=== PATIENT | male | born 1970 | race Caucasian/White ===

== ENCOUNTER 2020-06-20 08:46 | Inpatient (IN) | payer OTHER, SELFPAY ==
[2020-06-20] VITALS (12 sets, daily range): BP systolic 111–160; BP diastolic 75–108; PULSE 109–121; RESP 17–24; TEMP 36.3–36.7; O2SAT 63–97; BMI 40.6; BMI 41.1; BMI 41.2
--- NOTE | 2020-06-20 09:02 | RAD_ITS ---
STUDY: X-RAY CHEST REASON FOR EXAM: Male, 49 years old. SOB? EDEMA TO LOWER EXTREMITIES TECHNIQUE: Single AP portable view of the chest. COMPARISON: None. FINDINGS: The lungs are clear and expanded. There is no demonstrated pleural abnormality. There is moderate cardiac enlargement. Normal mediastinum and antelmo. There is prominence of the pulmonary hilar arteries and peripheral pulmonary arteries, consistent with congestive heart failure (CHF). Normal visualized aortic arch and descending thoracic aorta. Normal visualized thoracic spine. Normal visualized ribs, clavicles, and shoulders. There is no demonstrated abnormality of the visualized soft tissue structures of the upper abdomen. RAD/Chest 1 View (Portable) IMPRESSION: Mild congestive heart failure. Electronically Signed: Walter Duran MD at 10:57 EDT Tel , Service support ,
--- NOTE | 2020-06-20 09:03 | EKG12_ITS ---
Test Reason : Blood Pressure : / mmHG Vent. Rate : 119 BPM Atrial Rate : 119 BPM P-R Int : 166 ms QRS Dur : 090 ms QT Int : 312 ms P-R-T Axes : 068 088 049 degrees QTc Int : 438 ms Sinus tachycardia with occasional Premature ventricular complexes Low voltage QRS Borderline ECG Confirmed by RYAN HUERTA, KHURRAM ([id number]), restaurant expeditor CLAUDIA WARNER ([id number]) on 06/21/2020 10:05:01 AM Referred By: MEMO Confirmed By:KHURRAM DAVIS MD
[2020-06-20] MEDS: Ondansetron 4 MG/2 ML Vial IV (09:24)
[2020-06-20] MEDS: Furosemide 20 MG/2 ML VIAL IV (09:24)
[2020-06-20] MEDS: Morphine 4 MG/ML Syringe IV (09:24)
[2020-06-20 09:28] LABS: Mucous, Urine 0 SEEN /hpf (<or=2+); Red Blood Cells-Urine 0 SEEN /hpf (0-5)
[2020-06-20 09:34] LABS: Color, Urine Yellow (Yellow); Glucose, Dipstick Normal (Normal); Ketone-Dipstick Negative (Negative); Leukocyte Esterase-Dipstick 25 /ul (Negative); Nitrite-Dipstick Negative (Negative); Occult Blood-Urine Negative /ul (Negative); Protein-Dipstick 100 mg/dl (Negative); Specific Gravity, Urine 1.025 (1.002-1.030); Urine Clarity Sl. Cloudy (Clear); Urine Urobilinogen 1 mg/dl (Normal)
[2020-06-20 09:34] LABS: Absolute Lymphocyte Count 1.63 X10^3/uL (0.83-4.51); Basophil# 0.04 X10^3/uL; Basophil% 0.4 % (0-1); Eosinophil# 0.14 X10^3/uL; Eosinophils% 1.4 % (0-5); Hematocrit 45.6 % (40-54); Hemoglobin 13.4 g/dL (13.0-16.5); Lymphocyte # 1.63 X10^3/ul (4.0); Lymphocyte % 16.8 % (19-41); Mean Corp Hgb Conc 29.4 g/dL (32-36); Mean Corpuscular Hgb 29.1 pg (27.0-32.0); Mean Corpuscular Volume 98.9 fL (80-94); Mean Platelet Vol. 10.1 fl (6.2-12.0); Monocyte# 0.84 X10^3/uL; Monocyte% 8.7 % (0-10); NRBC Flagged by Analyzer 0 % (0-5); Neutrophil # 7.03 X10^3/uL (2.7-7.7); Neutrophil % 72.4 % (47-70); Platelet Count 262 K/mm3 (150-450); RBC Distribution Width CV 15.3 % (11.6-14.6); Red Blood Count 4.61 M/mm3 (4.6-6.2); White Blood Count 9.7 K/mm3 (4.4-11.0)
[2020-06-20 09:37] LABS: Urine Bilirubin Dipstick 1 mg/dL (Negative)
--- NOTE | 2020-06-20 09:37 | CT_ITS ---
STUDY: CT ABDOMEN AND PELVIS WITHOUT CONTRAST REASON FOR EXAM: Male, 49 years old. ABDOMINAL PAIN WITH SWELLING RADIATION DOSAGE (If Supplied By Facility): CTDIvol = ( 22.40 ) mGy, DLP = ( 1628.00 ) mGycm TECHNIQUE: Transaxial images were obtained from the dome of the diaphragm to the symphysis pubis without oral contrast, and without intravenous contrast. Sagittal and coronal images were reconstructed. Individualized dose optimization techniques were used for this CT. COMPARISON: None. FINDINGS: The visualized lung bases are unremarkable. The visualized portions of the heart are within normal limits. Small amount of ascites. Edema of the subcutaneous fat of the abdominal wall consistent with anasarca. Normal liver. Normal gallbladder and extrahepatic biliary system. Normal spleen. Normal pancreas. Normal bilateral adrenal glands. Normal right kidney. Normal left kidney. Normal visualized stomach. Normal small intestine. Normal colon. The appendix is visualized and appears normal. Normal abdominal aorta. Normal inferior vena cava. Normal retroperitoneum. Normal urinary bladder. Normal abdominal wall. Focal degenerative disc disease at L5/S1 to CT/Abdomen/Pelvis without Cont IMPRESSION: Volume overload with anasarca and a small amount of ascites. Electronically Signed: Walter Duran MD at 11:05 EDT Tel , Service support ,
[2020-06-20 09:40] LABS: Bacteria RARE /hpf (None Seen); Calcium Oxalate Crystals Ur 2+ /hpf (<or=2+); Squamous Epithelial Cells - UA 0-5 SEEN /hpf (0-5); White Blood Cells 0-5 SEEN /hpf (0-5)
[2020-06-20 09:51] LABS: ALB/GLOB Ratio 0.8 RATIO (0.9-2.4); AST(SGOT) 14 U/L (15-37); Alanine Aminotransfer ALT/SGPT 19 U/L (16-61); Albumin, Serum 3.3 g/dL (3.2-5.0); Alkaline Phosphatase 77 U/L (45-117); Anion Gap 5 (5-15); BUN 18 mg/dL (7-18); BUN/Creat Ratio 18.2 RATIO (10-20); Calcium,Total 9.3 mg/dL (8.5-10.1); Chloride 98 mmol/L (98-107); Creatinine, Serum 0.99 mg/dL (0.70-1.30); EST Glomerular Filtration Rate 85 mL/min (>60); Est Glom Filt Rate - Afr Amer 103 mL/min (>60); Estimated Creatinine Clearance 95.08 ml/min; Globulin 4.3 g/dL (2.2-4.2); Glucose 116 mg/dL (74-106); Lipase 243 U/L (73-393); Protein, Total 7.6 g/dL (6.4-8.2); Sodium Level 135 mmol/L (136-145)
--- NOTE | 2020-06-20 10:57 | ED.VISSUMM ---
- ER Visit Summary Date of Service: 06/20/20 Chief Complaint: Bilateral leg swelling and abdominal pain History of Present Illness: The patient is a [address] Jennings. He reports he began having swelling of his legs approximately 2 weeks ago. It is increased over the past 2 days. Is also developed diffuse abdominal pain over the past 2 days. He describes it as sharp pain is 2 out of 10 currently and 10 out of 10 at worst. It is worsened by movement or walking. His last bowel was today. He reports he is not passing flatus. He denies any nausea, vomiting, or diarrhea. Patient denies any fever, chills, chest pain, shortness of breath, or other complaints. Physical Examination: Vitals: Stable. Afebrile. General: Well-nourished and well-developed. Head: Normocephalic atraumatic. Neck: Supple, no lymphadenopathy. No JVD. Nontender. Cardiovascular: Tachycardic regular rhythm. No murmurs. Respiratory: No respiratory distress. Clear to auscultation bilaterally. Abdominal: Soft, moderate diffuse tenderness palpation, nondistended, normal bowel sounds. No guarding, rebound, or peritoneal signs. Back: Nontender. Extremities: Nontender, 3+ pitting edema lower extremities bilaterally that extends up onto the lower abdomen. Skin: Normal color, no rash. Neurologic: Alert and oriented ?3. Cranial nerves II through XII are intact. Normal strength and sensation. Psych: Normal affect. Test Results: EKG is sinus tachycardia 119 with PVCs and nonspecific ST changes. Troponin is negative. UA shows leukocytes, 2+ calcium oxalate crystals, and protein. LFTs show an albumin of 4.3 and AST of 14. Lipase is normal. Chem-7 shows a sodium 135 and chloride 116. CBC shows 7 neutrophils 72 lymphocytes 17. Chest x-ray shows cardiomegaly and mild CHF. Clinical Impression(s) from Imaging Studies Chest X-Ray 06/20/20 09:02 IMPRESSION: Mild congestive heart failure. Electronically Signed: Walter Duran MD at 10:57 EDT Tel , Service support , Abdomen/Pelvis CT 06/20/20 09:37 IMPRESSION: Volume overload with anasarca and a small amount of ascites. Electronically Signed: Walter Duran MD at 11:05 EDT Tel , Service support , Emergency Department Course and Treatment: Patient was given a dose of morphine, Zofran, and Lasix IV. He is resting more comfortably. Treatment Plan: Patient will be discussed with the Hospitalist and admitted for further evaluation and treatment. Disposition: Admitted in improved condition. Impression: 1. Anasarca. 2. Ascites. This note was generated with [employer] dictation software. It may contain incorrect words, spelling, and punctuation that were not noted in review of the chart prior to signing ED Disposition - Plan for ED Patient: Referrals: Giuliano Jennings MD [Primary Care Provider] -
--- NOTE | 2020-06-20 11:26 | NURSING ---
DR AZRA WATKINS
--- NOTE | 2020-06-20 11:28 | PCM.HP.STD ---
Problem List (1) Lower extremity edema Status: Acute (2) Diabetes mellitus type 2 in obese Status: Chronic (3) Hypertension Status: Chronic (4) Sleep apnea Status: Chronic History of Present Illness Date of Admission: 06/20/20 Chief Complaint: Bilateral lower extremity edema for 2 to 3 weeks The patient is a 49 year old M with history of type 2 diabetes mellitus and hypertension came to ED with bilateral lower extremity edema and increasing abdominal girth for 2 to 3 weeks. Patient looks short of breath even though he denies shortness of breath on exertion, at rest. He denies exertional dyspnea, orthopnea or PND. No chest pain or pressure. Denies any history of coronary artery disease/[place] although his father had [place] and CABG. In ED, his pulse ox dropped to 63% on room air and currently 95% on 4 L of oxygen. Triage vitals, sinus tach rate of 121, BP 122/76. Respiratory rate 20 to 24/min. Chest x-ray individually reviewed and shows mild interstitial edema and moderate cardiac enlargement. EKG sinus tachycardia with PVCs at 119 bpm, low voltage QRS. No previous EKG, echo or admission in our hospital Patient had Lasix 20 mg IV and morphine and Zofran in ED. Past Medical History Past Medical History (Chronic Problems): Chronic Problems Diabetes mellitus type 2 in obese (Chronic) Hypertension (Chronic) Sleep apnea (Chronic) Allergies No Known Allergies Allergy (Verified 06/20/20 08:47) Home Medications: Ambulatory Orders Medication Instructions Recorded Amlodipine [Norvasc] 5 mg PO DAILY 06/20/20 Atorvastatin Calcium 20 mg PO DAILY 06/20/20 Lisinopril/Hydrochlorothiazide 1 ea PO DAILY 06/20/20 [Lisinopril-Hctz 20-12.5 mg Tab] metFORMIN HCl [Glucophage] 1,000 mg PO BIDCM 06/20/20 Smoking Status: Current every day smoker - About a pack per day since teenage Alcohol: None Drugs: None - *Family History Paternal History Items: Heart Disease - [place]/CABG Review of Systems Constitutional: Denies: Chills, Fever, Weight Change HEENT: Denies: Head Aches, Sinus Congestion, Sinus Drainage Cardiovascular: Denies: Chest Pain, Palpitations Respiratory: Reports: Shortness of Breath. Denies: Cough, Shortness of breath at rest, Sputum production Gastrointestinal: Denies: Abdominal Pain, Nausea, Vomiting Genitourinary: Denies: Dysuria, Frequency Musculoskeletal: Denies: Joint Pain, Joint Tenderness Skin: Denies: Rash, Wounds Neurological: Reports: Balance problems. Denies: Focal weakness, Numbness, Tingling Psychiatric: Denies: Anxiety, Depression, Homicidal Ideations, Suicidal Ideations Hematologic/ Lymphatic: Denies: Easy Bruising, Easy Bleeding VTE Information - Inpt Only VTE Present on Admission: No VTE Mechan Device Prophylaxis: None VTE Pharm Prophylaxis ordered?: Yes Patient Problems: Active and Suspected Problems Lower extremity edema (Acute) - Physical Exam Vitals/I&O's: Vital Signs Temp Pulse Resp BP Pulse Ox 97.3 F L 117 H 20 H 122/76 H 94 06/20/20 08:47 06/20/20 10:47 06/20/20 10:47 06/20/20 10:47 06/20/20 11:05 Oxygen Flow Rate (L/min) 6 Oxygen Delivery Method Nasal Cannula Weight: 291 lb Body Mass Index (BMI) 40.6 General: Alert, Oriented x3, Cooperative HEENT: Atraumatic, PERRLA, EOMI, Normocephalic Neck: Supple, No JVD, Negative Carotid Bruits Lungs: No wheeze, No rales, Diminished - Air entry diminished in all lung stone., Rhonchi - Mild expiratory rhonchi present Cardiovascular: Regular Rhythm, Normal S1, Normal S2, No murmurs, Tachycardic Abdomen: Bowel Sounds Present, Soft, Non Tender, Distended, Obese, - - Mild ascites Extremities: Capillary Refill Less than 3 Seconds, Edema - Bilateral lower extremity edema below knee. Skin: No rashes, No breakdown Musculoskeletal: No Tenderness to Palpation of Joints or Extremities Neurological: Cranial nerves II-XII grossly intact, Deep Tendon Reflexes 2+/4 and Symmetrical, Neuro grossly intact Psych/Mental Status: Normal Affect, Appropriate Laboratory Results 06/20/20 09:00: WBC 9.7, RBC 4.61, Hgb 13.4, Hct 45.6, MCV 98.9 H, MCH 29.1, MCHC 29.4 L, RDW Std Deviation 55.0 H, RDW Coeff of Adam 15.3 H, Plt Count 262, MPV 10.1, Immature Gran % (Auto) 0.300, Neut % (Auto) 72.4 H, Lymph % (Auto) 16.8 L, [place] % (Auto) 8.7, Eos % (Auto) 1.4, Baso % (Auto) 0.4, Absolute Neuts (auto) 7.0, Absolute Lymphs (auto) 1.63, Nucleated RBC % 0 06/20/20 09:00: Sodium 135 L, Potassium 4.0, Chloride 98, Carbon Dioxide 32.0, Anion Gap 5, BUN 18, Creatinine 0.99, Estim Creat Clear Calc 95.08, Est GFR (MDRD) Af Amer 103, Est GFR (MDRD) Non-Af 85, BUN/Creatinine Ratio 18.2, Glucose 116 H, Calcium 9.3, Total Bilirubin 0.50, AST 14 L, ALT 19, Alkaline Phosphatase 77, Troponin I < 0.015, Total Protein 7.6, Albumin 3.3, Globulin 4.3 H, Albumin/Globulin Ratio 0.8 L, Lipase 243 06/20/20 09:20: Urine Color Yellow, Urine Clarity Sl. Cloudy, Urine pH 5.0, Ur Specific [place] 1.025, Urine Protein 100 H, Urine Glucose (UA) Normal, Urine Ketones Negative, Urine Occult Blood Negative, Urine Nitrite Negative, Urine Bilirubin 1 H, Urine Urobilinogen 1 H, Ur Leukocyte Esterase 25 H, Urine RBC 0 SEEN, Urine WBC 0-5 SEEN, Ur Squamous Epith Cells 0-5 SEEN, Calcium Oxalate Crystal 2+, Urine Bacteria RARE, Urine Mucus 0 SEEN Assessment/Plan All Active Problems Lower extremity edema (Acute) The patient is a 49 year old M with history of type 2 diabetes mellitus and hypertension came to ED with bilateral lower extremity edema and increasing abdominal girth for 2 to 3 weeks, consistent with new onset CHF Chest x-ray individually reviewed and shows mild interstitial edema and moderate cardiac enlargement. EKG sinus tachycardia with PVCs at 119 bpm, low voltage QRS. No previous EKG, echo or admission in our hospital 1. Most probably, new onset CHF, exact etiology, type unclear: Clinically patient has bilateral lower extremity edema, mild ascites, tachypnea and hypoxia in ED consistent with CHF. BNP and 2D echo ordered. First troponin negative. Patient is being admitted in PCU. Cycle troponins. Started on Lasix 40 mg IV twice daily. Low-dose metoprolol. Patient already on HCTZ, lisinopril and Norvasc at home. Will hold Norvasc. Heart failure core measures at this time energy, fluid restriction, intake and output and 2 g sodium diet. 2. Hypertension: Patient blood pressure is controlled. Continue lisinopril but hold HCTZ and Norvasc. Monitor BP 3. Diabetes mellitus type 2: Glucose 116. A1c tomorrow a.m. Hold metformin. Accu-Chek essentials and cover with Humalog sliding scale. 4. Obstructive sleep apnea: Patient not using CPAP at home because of the mask/claustrophobia. CPAP ordered. Patient was encouraged to follow-up in pulmonary clinic for the sleep study titration and nasal CPAP. VT prophylaxis, moderate risk: Lovenox 40 mg subcu daily. Inpatient E&M: 32562 Init Hosp L3
--- NOTE | 2020-06-20 12:11 | ECHOCS_ITS ---
Version 2 Reason For Study: Heart Failure Procedure This was a 2D Doppler, Color Flow transthoracic echocardiogram. The study was technically difficult. Contrast injection was performed. Exam performed portable in patient room. Left Ventricle Mildly dilated left ventricle. The estimated ejection fraction is 15 %. Stage 1 diastolic dysfunction. There is severe global hypokinesis of the left ventricle. Right Ventricle Mildly dilated right ventricle. Mild global right ventricular systolic dysfunction. Atria The left atrium is mildly enlarged. Normal right atrium. No doppler evidence for ASD. Mitral Valve There is no mitral valve stenosis. Trivial mitral valve insufficiency. Tricuspid Valve There is no tricuspid stenosis. Trivial tricuspid valve insufficiency. Pulmonary artery systolic pressure is 35 mmHg. Aortic Valve Trisinus/trileaflet aortic valve. There is no aortic stenosis. No aortic valve insufficiency. Pulmonic Valve There is no pulmonic valvular stenosis. Trivial pulmonic valve insufficiency. Great Vessels Normal aortic root. Pericardium/Pleural No pericardial effusion. Medication Diluted definity 2ml given slow IV push to enhance endocardial definition. MMode/2D Measurements & Calculations LVIDd: 5.4 cm IVSd: 1.5 cm LA dimension: 4.8 cm LVIDs: 5.0 cm LVPWd: 1.1 cm FS: 7.0 % LAV(MOD-bp): 81.2 ml LVAd ap4: 44.8 cm2 SV(MOD-sp4): 30.2 ml LAV(MOD-bp) Indexed: 32.6 ml/m2 EDV(MOD-sp4): 186.9 ml LAV(MOD-sp2): 79.5 ml EDV(sp4-el): 196.4 ml LAV(MOD-sp4): 77.9 ml LVAs ap4: 40.2 cm2 ESV(MOD-sp4): 156.7 ml ESV(sp4-el): 164.0 ml EF(MOD-sp4): 16.1 % EF(sp4-el): 16.5 % SV(sp4-el): 32.4 ml LA A4 area: 23.9 cm2 RA A4 area: 21.3 cm2 Doppler Measurements & Calculations MV E max emanuel: 100.0 cm/sec Ao V2 max: 85.4 cm/sec LV V1 max: 79.6 cm/sec Ao max P.9 mmHg LV V1 max P.6 mmHg PA V2 max: 99.2 cm/sec TR max emanuel: 241.6 cm/sec TR max P.6 mmHg Interpretation Summary The estimated ejection fraction is 15 %. Stage 1 diastolic dysfunction. Trivial mitral valve insufficiency. Mildly dilated right ventricle. Mild global right ventricular systolic dysfunction. The study was technically difficult. Contrast injection was performed. Ordering Physician: Ramírez Tavera Referring Physician: Giuliano Jennings Performed By: Stanislav Dover RCS
[2020-06-20 12:48] LABS: BNP,B-Type NATRIURETIC PEPTIDE 776.9 pg/mL (0-100)
[2020-06-20 12:49] LABS: Magnesium 1.8 mg/dL (1.6-2.6)
[2020-06-20 12:52] LABS: AST(SGOT) 12 U/L (15-37); Alanine Aminotransfer ALT/SGPT 17 U/L (16-61); Albumin, Serum 3.3 g/dL (3.2-5.0); Alkaline Phosphatase 79 U/L (45-117); Bilirubin, Direct 0.27 mg/dL (0.00-0.30); Globulin 4.3 g/dL (2.2-4.2); Protein, Total 7.6 g/dL (6.4-8.2)
[2020-06-20] MEDS: Enoxaparin 40 MG/0.4 ML Syringe SC (14:20)
[2020-06-20] MEDS: oxyCODONE 5 MG Tablet PO (16:02)
[2020-06-20 16:30] LABS: Bedside Glucose 132 mg/dL (70-110)
[2020-06-20] MEDS: Furosemide 40 MG/4 ML Vial IV (17:45)
[2020-06-20] MEDS: 0.9% Saline Lock 10 ML Syringe IV ×2 (17:45→19:42)
[2020-06-20] MEDS: Atorvastatin Calcium 40 MG Tablet PO (21:27)
[2020-06-20] MEDS: Metoprolol Tartrate 25 MG Tablet 12.5 MG PO (21:27)
[2020-06-20 22:01] LABS: Bedside Glucose 118 mg/dL (70-110)
[2020-06-20] MEDS: Acetaminophen 325 MG Tablet 650 MG PO (22:45)
[2020-06-21] VITALS (16 sets, daily range): BP systolic 81–117; BP diastolic 59–78; PULSE 85–103; RESP 16–18; TEMP 36.3–36.8; O2SAT 92–96
[2020-06-21] MEDS: oxyCODONE 5 MG Tablet PO (02:23)
[2020-06-21 06:55] LABS: Bedside Glucose 123 mg/dL (70-110)
[2020-06-21 07:23] LABS: Anion Gap 3 (5-15); BUN 24 mg/dL (7-18); BUN/Creat Ratio 20.9 RATIO (10-20); Chloride 98 mmol/L (98-107); Creatinine, Serum 1.15 mg/dL (0.70-1.30); EST Glomerular Filtration Rate 71 mL/min (>60); Est Glom Filt Rate - Afr Amer 86 mL/min (>60); Estimated Creatinine Clearance 81.85 ml/min; Glucose 118 mg/dL (74-106); Potassium 4.7 mmol/L (3.5-5.1); Sodium Level 135 mmol/L (136-145); Thyroid Stim Hormone (TSH) 0.96 uIU/mL (0.358-3.74)
[2020-06-21] MEDS: Acetaminophen 325 MG Tablet 650 MG PO (08:28)
[2020-06-21 09:14] LABS: Hemoglobin A1c 6.1 % (3.8-5.6)
[2020-06-21] MEDS: Lisinopril 20 MG Tablet PO (09:30)
[2020-06-21] MEDS: Metoprolol Tartrate 25 MG Tablet 12.5 MG PO (09:30)
[2020-06-21] MEDS: Enoxaparin 40 MG/0.4 ML Syringe SC (09:31)
[2020-06-21] MEDS: Furosemide 40 MG/4 ML Vial IV (09:32)
[2020-06-21 11:20] LABS: Phosphorus 6.1 mg/dL (2.5-4.9)
[2020-06-21 11:25] LABS: Bedside Glucose 157 mg/dL (70-110)
[2020-06-21] MEDS: Insulin Lispro 100 UNIT/ML INSULN.PEN SC (11:32)
--- NOTE | 2020-06-21 12:02 | CASEMGMT ---
CHETNA VIRGEN assessment: Face to Face with patient for initial transition planning/care coordination assessment. CHETNA VIRGEN introduced self and role at [facility], pt voices understanding and consents to assessment at this time. pt is sitting up in bed in no distress at this time. Pt is A/Ox4 at this time and answers all questions appropriately. Pt is currently on 2liters nc at this time. Care providers, pharmacy, and demographics verified/updated at this time. Presentation: Pt presents w/ BLE and abd edema Admitting dx: Bilat LE edema, new onset CHF PCP: Michaela Specialists: Pt states no current specialists at this time. Preferred [facility]acy: [facility] Insurance: MMO/[employer] Prescription Benefit: MMO Living Will/HPOA: Pt states no current LW/HPOA but would like to complete AD at this time. Kody sheridan, voices understanding. LNOK: Rolanda Martínez, ; Bev Enrique, daughter Living Arrangements: Pt states lives with in mobile home and states no concerns at home at this time. Pt states is independent with ADL's. Transportation: Pt states drives self and states no transportation concerns at this time. DME/HHC: Pt states has a cpap but has not been using and states no need for any further DME at this time. Pt states no hx of HHC or SNF in the past. Pt states no concerns with going home at time of discharge. 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 Pt states smokes a pack of cigarettes daily and does not drink ETOH. Pt states no further concerns/needs at this time. CM to follow for any further discharge planning/needs. Advised pt to ask for CM if any further questions/concerns/needs arise, voices understanding. Pt Goal: Home Plan[place] CHETNA VIRGEN
[2020-06-21 14:21] LABS: Bedside Glucose 135 mg/dL (70-110)
[2020-06-21] MEDS: proCHLORPERazine 10 MG/2 ML Vial 5 MG IV (14:45)
[2020-06-21] MEDS: 0.9% Saline Lock 10 ML Syringe IV (14:47)
--- NOTE | 2020-06-21 15:44 | PCM.PN.HOSP ---
Patient Problems: Active and Suspected Problems Lower extremity edema (Acute) Reason for Visit: Follow-up for heart failure Objective: Patient shortness of breath and leg swelling is better. Heart rate is controlled in the 80s. Sinus rhythm. Blood pressure 117/77, 92/63, map 72. On 2 L of oxygen. Patient was 86% on room air at 8 PM today Physical exam General: Alert, Oriented x3, Cooperative HEENT: Atraumatic, PERRLA, EOMI, Normocephalic Oral: No Gingival or Mucosal Lesions/ Ulcerations Neck: Supple, No JVD, Negative Carotid Bruits Lungs: Air entry diminished in bilateral lung bases. Bibasilar Rales and expiratory rhonchi present. Cardiovascular: Regular rate, Regular Rhythm, Normal S1, Normal S2, No murmurs Abdomen: Bowel Sounds Present, Soft, Non Tender, Non-Distended : No renal angle tenderness. No suprapubic tenderness. Extremities: Bilateral lower extremity pitting, 3+ edema, Capillary Refill Less than 3 Seconds Skin: No rashes, No breakdown Musculoskeletal: No Tenderness to Palpation of Joints or Extremities Neurological: Cranial nerves II-XII grossly intact, Deep Tendon Reflexes 2+/4 and Symmetrical, Neuro grossly intact Psych/Mental Status: Normal Affect, Appropriate. Vitals/I&O's: Vital Signs Temp Pulse Resp BP Pulse Ox 97.8 F 87 16 92/63 92 06/21/20 14:51 06/21/20 14:59 06/21/20 14:51 06/21/20 14:51 06/21/20 14:51 Oxygen Flow Rate (L/min) 2 Oxygen Delivery Method Nasal Cannula Weight: 293 lb 14.019 oz Body Mass Index (BMI) 41.1 Intake and Output for Last 24 Hours 06/19/20 06/20/20 06/21/20 23:59 23:59 23:59 Intake Total 610 / 610 650 / 650 Output Total 600 / 600 550 / 550 Balance 100 / 100 Laboratory Results 06/20/20 16:06: POC Glucose 132 H 06/20/20 21:26: POC Glucose 118 H 06/21/20 06:25: Sodium 135 L, Potassium 4.7, Chloride 98, Carbon Dioxide 34.0 H, Anion Gap 3 L, BUN 24 H, Creatinine 1.15, Estim Creat Clear Calc 81.85, Est GFR (MDRD) Af Amer 86, Est GFR (MDRD) Non-Af 71, BUN/Creatinine Ratio 20.9 H, Glucose 118 H, Calcium 9.0, TSH 0.96 06/21/20 06:25: Hemoglobin A1c 6.1 H 06/21/20 06:25: Phosphorus 6.1 H, Magnesium 2.0 06/21/20 06:31: POC Glucose 123 H 06/21/20 11:23: POC Glucose 157 H 06/21/20 14:16: POC Glucose 135 H Current Medications Acetaminophen (Tylenol) 650 mg PO Q6H PRN PRN PRN Reason: Pain Score 1-10/Temp > 100.7 F Last Admin: 06/21/20 08:28 Dose: 650 mg Documented by: Al Hydroxide/Mg Hydroxide (Mylanta Ii) 30 ml PO Q6H PRN PRN PRN Reason: Gastric Burning Albuterol Sulfate (Ventolin Aerosols) 2.5 mg INHALATION Q2H PRN PRN PRN Reason: SOB/Wheezing Atorvastatin Calcium (Lipitor) 40 mg PO QHS [facility] Last Admin: 06/20/20 21:27 Dose: 40 mg Documented by: Dextrose (D50w Syringe) 0 gm IV X1 PRN; Protocol PRN Reason: Hypoglycemia Enoxaparin Sodium (Lovenox) 40 mg SC DAILY [facility] Last Admin: 06/21/20 09:31 Dose: 40 mg Documented by: Furosemide (Lasix) 40 mg IV BID@1000,1800 [place] Glucagon () 1 mg IM .X1 PRN PRN Reason: Hypoglycemia Insulin Human Lispro (Humalog Kwikpen (Bkc)) 0 unit SC [facility]; Protocol Last Admin: 06/21/20 11:32 Dose: 2 u Documented by: Lisinopril (Zestril) 20 mg PO DAILY [facility] Last Admin: 06/21/20 09:30 Dose: 20 mg Documented by: Metoprolol Tartrate (Lopressor (Beta Edin)) 12.5 mg PO BID [facility] Last Admin: 06/21/20 09:30 Dose: 12.5 mg Documented by: Morphine Sulfate () 2 mg IV Q3H PRN PRN PRN Reason: Pain Score 6-10/10 Nicotine (Nicoderm Cq (Pbkc)) 21 mg TRANSDERM. DAILY [facility] Last Admin: 06/21/20 09:32 Dose: 21 mg Documented by: Oxycodone HCl (Oxyir) 5 mg PO Q4H PRN PRN PRN Reason: Pain Score 4-5/10 Last Admin: 06/21/20 02:23 Dose: 5 mg Documented by: Prochlorperazine Edisylate (Compazine Iv) 5 mg IV Q4H PRN PRN PRN Reason: Breakthrough Nausea/Vomiting Last Admin: 06/21/20 14:45 Dose: 5 mg Documented by: Senna/Docusate Sodium (Senokot-S, Karuna-Colace) 2 tablet PO BID PRN PRN PRN Reason: Constipation Sodium Chloride () 10 - 40 ml IV UD PRN PRN Reason: SALINE FLUSH Last Admin: 06/21/20 14:47 Dose: 10 ml Documented by: STROKE Vital Signs/Narrative: Vital Signs Temp Pulse Resp BP Pulse Ox 06/21/20 14:59 87 06/21/20 14:51 97.8 F 86 16 92/63 92 Medical Necessity - Tobacco Use Smoking Status: Current every day smoker Tobacco Use: Cigarettes Assessment/Plan All Active Problems Lower extremity edema (Acute) The patient is a 49 year old M with history of type 2 diabetes mellitus and hypertension came to ED with bilateral lower extremity edema and increasing abdominal girth for 2 to 3 weeks, consistent with new onset CHF Chest x-ray individually reviewed and shows mild interstitial edema and moderate cardiac enlargement. EKG sinus tachycardia with PVCs at 119 bpm, low voltage QRS. No previous EKG, echo or admission in our hospital 1. 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 Heart failure core measures at this time energy, fluid restriction, intake and output and 2 g sodium diet. 06/21: 2D echo reviewed with the embryology teacher, Dr. Metzger. EF 15%, stage I diastolic dysfunction with trivial MR. Severe global hypokinesis of LV. Cardiology consult. Plan for cardiac cath tomorrow a.m. Clear liquid diet tomorrow breakfast and then n.p.o. for the procedure. I discussed the procedure with the patient in short. Continue Lasix 40 mg twice daily. Metoprolol increased to 25 mg twice daily. Serial troponin enzymes negative. Patient had 7 beats of NSVT. Magnesium normal. Phosphorus 6.1. 2. Hypertension: Patient blood pressure is controlled. Continue lisinopril but hold HCTZ and Norvasc. Blood pressure is controlled 3. Diabetes mellitus type 2: Glucose 116. Accu-Chek essentials and cover with Humalog sliding scale. A1c 6.1. Accu-Cheks between 100 250 mg/dL. 4. Obstructive sleep apnea: Patient not using CPAP at home because of the mask/claustrophobia. CPAP ordered. Patient was encouraged to follow-up in pulmonary clinic for the sleep study titration and nasal CPAP. VTE prophylaxis, moderate risk: Lovenox 40 mg subcu daily. Total time of the visit including total time spent in counseling or coordination of care, (more than 50% of the total time, spent in obtaining medical information from nurses and other ancillary care providers), discussion with the embryology teacher, review of labs and imaging and echo is 30 minutes. Inpatient E&M: 99252 [facility] L3
--- NOTE | 2020-06-21 15:49 | CHAPLAIN ---
Type of Pastoral Visit _x__ Initial Visit ___ Follow-up Visit ___ On-call Visit ___ General Patient Visit ___ Spiritual Assessment ___ Family Conference ___ Bereavement ___ Rapid Response ___ Code Blue ___ Other (describe below) Pastoral Care Referral From _x__ Patient ___ Family ___ Nurse ___ Physician ___ Dinkey Driver ___ Roofer Gypsum ___ Other (describe below) Sacrament/Intervention _x__ Active listening ___ Anointing ___ Scientology ___ Bereavement ___ Communion ___ Hortencia exploration ___ ___ Life review ___ Prayer ___ Reconciliation ___ Sacrament of Sick _x__ Supportive presence ___ Wedding ___ Other (describe below) Pastoral Comments patient welcomes this steam box hand but states I just need to get outside for a few minutes; pt stated that he has asked but is not allowed to leave unit, speaks understanding, yet speaks of need for some fresh air; pt continues to say that he has heart failure which is a new diagnosis; when asked how he is feeling about this new information pt states that it is overwhelming and 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
--- NOTE | 2020-06-21 16:20 | CASEMGMT ---
According to the [employer] website, the following are in-network tertiary facilities: [facility], [facility], [facility], [facility], [facility], [facility], [facility], [place], [facility], and . Leah BASILIO CM
[2020-06-21 16:51] LABS: Bedside Glucose 119 mg/dL (70-110)
[2020-06-21] MEDS: LORazepam 0.5 MG Tablet PO (20:57)
[2020-06-21] MEDS: Atorvastatin Calcium 40 MG Tablet PO (20:57)
[2020-06-21] MEDS: Metoprolol Tartrate 25 MG Tablet PO (20:57)
[2020-06-21 21:45] LABS: Bedside Glucose 119 mg/dL (70-110)
[2020-06-22] VITALS (16 sets, daily range): BP systolic 101–130; BP diastolic 50–72; PULSE 80–104; RESP 16–17; TEMP 36.4–36.7; O2SAT 88–95
--- NOTE | 2020-06-22 05:55 | EKG12_ITS ---
Test Reason : AM EKG Blood Pressure : / mmHG Vent. Rate : 087 BPM Atrial Rate : 087 BPM P-R Int : 176 ms QRS Dur : 094 ms QT Int : 402 ms P-R-T Axes : 058 094 049 degrees QTc Int : 483 ms Normal sinus rhythm Low voltage QRS Prolonged QT Abnormal ECG When compared with ECG of 20-JUN-2020 09:13, Premature ventricular complexes are no longer Present Confirmed by TERRY HUERTA, JULIANA ([id number]), fashion editor CLAUDIA WARNER ([id number]) on 06/27/2020 11:42:18 AM Referred By: DR OQUENDO Confirmed By:SAMIA STEWART MD
[2020-06-22 06:05] LABS: Absolute Lymphocyte Count 2.53 X10^3/uL (0.83-4.51); Absolute Neutrophil Count 7.3 X10^3/uL (2.0-7.7); Basophil# 0.08 X10^3/uL; Basophil% 0.7 % (0-1); Eosinophil# 0.06 X10^3/uL; Eosinophils% 0.5 % (0-5); Hematocrit 45.1 % (40-54); Hemoglobin 13.2 g/dL (13.0-16.5); Lymphocyte # 2.53 X10^3/ul (4.0); Lymphocyte % 22.8 % (19-41); Mean Corp Hgb Conc 29.3 g/dL (32-36); Mean Corpuscular Hgb 28.8 pg (27.0-32.0); Mean Corpuscular Volume 98.3 fL (80-94); Mean Platelet Vol. 10.2 fl (6.2-12.0); Monocyte% 9.9 % (0-10); NRBC Flagged by Analyzer 0 % (0-5); Neutrophil % 65.8 % (47-70); Platelet Count 274 K/mm3 (150-450); RBC Distribution Width CV 15.4 % (11.6-14.6); RBC Distribution Width SD 56.2 fl (35.1-43.9); Red Blood Count 4.59 M/mm3 (4.6-6.2); White Blood Count 11.1 K/mm3 (4.4-11.0)
[2020-06-22 06:10] LABS: International Normalized Ratio 1.3; Prothrombin Time (Protime)PT. 15.6 SECONDS (11.7-14.9)
[2020-06-22 06:11] LABS: Partial Thromboplast Time 25.3 Seconds (24.1-36.2)
[2020-06-22 06:39] LABS: Anion Gap 3 (5-15); BUN 42 mg/dL (7-18); Calcium,Total 8.7 mg/dL (8.5-10.1); Chloride 96 mmol/L (98-107); Creatinine, Serum 1.68 mg/dL (0.70-1.30); EST Glomerular Filtration Rate 46 mL/min (>60); Est Glom Filt Rate - Afr Amer 56 mL/min (>60); Estimated Creatinine Clearance 56.03 ml/min; Glucose 107 mg/dL (74-106); Magnesium 2.1 mg/dL (1.6-2.6); Phosphorus 6.3 mg/dL (2.5-4.9); Potassium 5.2 mmol/L (3.5-5.1); Sodium Level 132 mmol/L (136-145)
[2020-06-22 06:55] LABS: Bedside Glucose 138 mg/dL (70-110)
[2020-06-22] MEDS: Metoprolol Tartrate 25 MG Tablet PO ×2 (10:13→21:11)
[2020-06-22] MEDS: LORazepam 0.5 MG Tablet PO ×2 (10:17→18:18)
[2020-06-22 10:20] LABS: Bedside Glucose 104 mg/dL (70-110)
[2020-06-22] MEDS: Furosemide 500 MG in Empty Viaflex 50 mL 1 EACH CONT INF (11:52)
--- NOTE | 2020-06-22 12:10 | CON.PCM_ITS ---
Reason for Consult Date of Consultation: 06/22/20 Reason for Consultation: CHF and LV systolic dysfunction History of Present Illness: The patient is a 49 year old M with history of type 2 diabetes mellitus and hypertension came to ED with bilateral lower extremity edema and increasing abdominal girth for 2 to 3 weeks. Patient looks short of breath even though he denies shortness of breath on exertion, at rest. He denies exertional dyspnea, orthopnea or PND. No chest pain or pressure. Denies any history of coronary artery disease/MT although his father had MT and CABG. In ED, his pulse ox dropped to 63% on room air and currently 95% on 4 L of oxygen. Triage vitals, sinus tach rate of 121, BP 122/76. Respiratory rate 20 to 24/min. Chest x-ray individually reviewed and shows mild interstitial edema and moderate cardiac enlargement. EKG sinus tachycardia with PVCs at 119 bpm, low voltage QRS. No previous EKG, echo or admission in our hospital Patient had Lasix 20 mg IV and morphine and Zofran in ED. today patient seen and evaluated at bedside along with the nursing staff and family at bedside He still having symptoms of shortness of breath and bilateral lower extremity edema and was on IV Lasix. There was no prior cardiac history Patient has multiple risk factor for CAD with diabetes, hypertension and he is a smoker and had morbid obesity. Review of the transthoracic echocardiogram showed severe LV systolic dysfunction with global LV hypokinesia with ejection fraction around 15-20% Also noted RV dilatation with RV free wall hypokinesia. Has impaired renal function with elevated creatinine. Past Medical History Allergies/Adverse Reactions: Allergies No Known Allergies Allergy (Verified 06/20/20 08:47) Home Medications: Ambulatory Orders Medication Instructions Recorded Amlodipine [Norvasc] 5 mg PO DAILY 06/20/20 Aspirin E.C. [Ecotrin] 81 mg PO DAILY@0800 06/20/20 Atorvastatin Calcium 20 mg PO DAILY 06/20/20 Lisinopril/Hydrochlorothiazide 1 ea PO DAILY 06/20/20 [Lisinopril-Hctz 20-12.5 mg Tab] metFORMIN HCl [Glucophage] 1,000 mg PO BIDCM 06/20/20 Past Medical History (Chronic Problems): Chronic Problems Diabetes mellitus type 2 in obese (Chronic) Hypertension (Chronic) Sleep apnea (Chronic) - *Family History Paternal History Items: Heart Disease - MT/CABG Smoking Status: Current every day smoker Tobacco Use: Cigarettes Alcohol: None Drugs: None Objective: Vital Signs Temp Pulse Resp BP Pulse Ox 97.9 F 83 17 130/60 H 90 06/22/20 08:30 06/22/20 10:13 06/22/20 08:30 06/22/20 10:13 06/22/20 08:40 Oxygen Flow Rate (L/min) 2 Oxygen Delivery Method Nasal Cannula Weight: 298 lb 1.039 oz Body Mass Index (BMI) 41.1 Intake and Output for Last 24 Hours 06/20/20 06/21/20 06/22/20 23:59 23:59 23:59 Intake Total 610 / 610 1890 / 1890 150 / 150 Output Total 600 / 600 1050 / 1050 200 / 200 Balance 840 / 840 -50 / -50 General: Awake, Alert, Oriented x 3, Cooperative HEENT: Normocephalic Oral: Moist Mucosa Neck: Supple Lungs: Rales - Gage Bases Cardiovascular: Regular Rhythm, No Murmurs Vascular: No Carotid Bruits Abdomen: Bowel Sounds Present, Soft, Non Tender, No HSM, No Organomegaly Extremities: No Cyanosis, No Clubbing, No edema, Bilateral Edema +2 Skin: No Rashes Psych/Mental Status: Appropriate - Patient cardiovascular exam revealed evidence of congestive heart failure. 06/22/20 05:52: Sodium 132 L, Potassium 5.2 H, Chloride 96 L, Carbon Dioxide 33.0 H, Anion Gap 3 L, BUN 42 H, Creatinine 1.68 H, Est GFR (MDRD) Af Amer 56 L, Est GFR (MDRD) Non-Af 46 L, BUN/Creatinine Ratio 25.0 H, Glucose 107 H, Calcium 8.7, Phosphorus 6.3 H, Magnesium 2.1 06/22/20 05:52: WBC 11.1 H, RBC 4.59 L, Hgb 13.2, Hct 45.1, MCV 98.3 H, MCH 28.8, MCHC 29.3 L, Plt Count 274, MPV 10.2, Immature Gran % (Auto) 0.300, Neut % (Auto) 65.8, Lymph % (Auto) 22.8, [place] % (Auto) 9.9, Eos % (Auto) 0.5, Baso % (Auto) 0.7, Absolute Neuts (auto) 7.3, Nucleated RBC % 0 06/22/20 05:52: PT 15.6 H, INR 1.3, APTT 25.3 Rhythm: EKG: ECHO: Stress Test: Cardiac Cath: PCI: CT Surgery: Holter monitor: EPS: PPM: CXR: Chest CT Scan: Assessment/Plan 49-year-old patient with a clinical presentation of shortness of breath bilateral lower extremity edema Cardiac evaluation is EKG showed underlying normal sinus with sinus tachycardia and unifocal PVC/infrequent Further assessment by a series of cardiac biomarkers troponins were negative I noted he had severe LV systolic dysfunction by echocardiogram ejection fraction around 15-20% and also had dilated RV Renal insufficiency with a creatinine 1.68 will be seen and evaluated further by the designated broker From cardiac standpoint recommendation would be to continue medical therapy and monitor renal function and electrolytes We will add low-dose beta-estephania carvedilol 3.125 mg twice a day once he is stable tomorrow We will be cautious about any CARMENCITA inhibitors/ARB or Entresto at this point due to his renal insufficiency which is likely cardiorenal once is stable from cardiac standpoint he can be evaluated further as an outpatient and assessed by nuclear stress test to assess for myocardial ischemia and discussed with the plan of possible cardiac catheterization due to the multiple risk factor of CAD. Thank you for the consultation we will continue to monitor and follow-up clinically
--- NOTE | 2020-06-22 13:26 | PN_ITS ---
Patient Problems: Active and Suspected Problems Lower extremity edema (Acute) LIZY (acute kidney injury) (Acute) Reason for Visit: Follow-up for heart failure, acute kidney injury, diabetic with proteinuria. Objective: In the morning patient was adamant for leaving hospital, AMA but later he agreed to stay. Patient still has significant lower extremity edema, dyspnea on exertion and orthopnea. On cardiac nurse practitioner shows 5 beats of NSVT. Blood pressure was low systolic 80s yesterday but has recovered. Currently 135/51. Started on IV Lasix drip. Discussed with the phlebotomy instructor. Physical exam General: Alert, Oriented x3, Cooperative HEENT: Atraumatic, PERRLA, EOMI, Normocephalic Oral: No Gingival or Mucosal Lesions/ Ulcerations Neck: Supple, No JVD, Negative Carotid Bruits Lungs: Air entry diminished in bilateral lung bases. Bilateral coarse rhonchi and crepitations present. Cardiovascular: Regular rate, Regular Rhythm, Normal S1, Normal S2, No murmurs. HAYS and orthopnea present. PVCs and short run of NSVT on cardiac nurse practitioner Abdomen: Bowel Sounds Present, Soft, Non Tender, mild ascites and subcutaneous edema of abdominal wall : No renal angle tenderness. No suprapubic tenderness. Extremities: Bilateral lower extremity from the knees downward. Capillary Refill Less than 3 Seconds Skin: No rashes, No breakdown Musculoskeletal: No Tenderness to Palpation of Joints or Extremities Neurological: Cranial nerves II-XII grossly intact, Deep Tendon Reflexes 2+/4 and Symmetrical, Neuro grossly intact Psych/Mental Status: Normal Affect, Appropriate. Vitals/I&O's: Vital Signs Temp Pulse Resp BP Pulse Ox 97.9 F 83 17 130/60 H 90 06/22/20 08:30 06/22/20 10:13 06/22/20 08:30 06/22/20 10:13 06/22/20 08:40 Oxygen Flow Rate (L/min) 2 Oxygen Delivery Method Nasal Cannula Weight: 298 lb 1.039 oz Body Mass Index (BMI) 41.1 Intake and Output for Last 24 Hours 06/20/20 06/21/20 06/22/20 23:59 23:59 23:59 Intake Total 610 / 610 1890 / 1890 550 / 550 Output Total 600 / 600 1050 / 1050 400 / 400 Balance 840 / 840 150 / 150 Laboratory Results 06/21/20 14:16: POC Glucose 135 H 06/21/20 16:42: POC Glucose 119 H 06/21/20 20:55: POC Glucose 119 H 06/22/20 05:52: Sodium 132 L, Potassium 5.2 H, Chloride 96 L, Carbon Dioxide 33.0 H, Anion Gap 3 L, BUN 42 H, Creatinine 1.68 H, Estim Creat Clear Calc 56.03, Est GFR (MDRD) Af Amer 56 L, Est GFR (MDRD) Non-Af 46 L, BUN/Creatinine Ratio 25.0 H, Glucose 107 H, Calcium 8.7, Phosphorus 6.3 H, Magnesium 2.1 06/22/20 05:52: WBC 11.1 H, RBC 4.59 L, Hgb 13.2, Hct 45.1, MCV 98.3 H, MCH 28.8, MCHC 29.3 L, RDW Std Deviation 56.2 H, RDW Coeff of Adam 15.4 H, Plt Count 274, MPV 10.2, Immature Gran % (Auto) 0.300, Neut % (Auto) 65.8, Lymph % (Auto) 22.8, [place] % (Auto) 9.9, Eos % (Auto) 0.5, Baso % (Auto) 0.7, Absolute Neuts (auto) 7.3, Absolute Lymphs (auto) 2.53, Nucleated RBC % 0 06/22/20 05:52: PT 15.6 H, INR 1.3, APTT 25.3 06/22/20 06:38: POC Glucose 138 H 06/22/20 10:15: POC Glucose 104 Current Medications Acetaminophen (Tylenol) 650 mg PO Q6H PRN PRN PRN Reason: Pain Score 1-10/Temp > 100.7 F Last Admin: 06/21/20 08:28 Dose: 650 mg Documented by: Al Hydroxide/Mg Hydroxide (Mylanta Ii) 30 ml PO Q6H PRN PRN PRN Reason: Gastric Burning Albuterol Sulfate (Ventolin Aerosols) 2.5 mg INHALATION Q2H PRN PRN PRN Reason: SOB/Wheezing Atorvastatin Calcium (Lipitor) 40 mg PO QHS [facility]ENCE Last Admin: 06/21/20 20:57 Dose: 40 mg Documented by: Dextrose (D50w Syringe) 0 gm IV X1 PRN; Protocol PRN Reason: Hypoglycemia Enoxaparin Sodium (Lovenox) 40 mg SC DAILY [facility] Last Admin: 06/22/20 09:07 Dose: Not Given Documented by: Glucagon () 1 mg IM .X1 PRN PRN Reason: Hypoglycemia Furosemide 500 mg/ N/A 50 mls @ 1 mls/hr CONT INF .Q50H [facility] Last Admin: 06/22/20 11:52 Dose: 10 mg/hr, 1 mls/hr Documented by: Insulin Human Lispro (Humalog Kwikpen (Bkc)) 0 unit SC ACHS [facility]; Protocol Last Admin: 06/22/20 10:19 Dose: Not Given Documented by: Lorazepam (Ativan) 0.5 mg PO Q8H PRN PRN PRN Reason: severe anxiety Last Admin: 06/22/20 10:17 Dose: 0.5 mg Documented by: Metoprolol Tartrate (Lopressor (Beta Edin)) 25 mg PO BID [facility] Last Admin: 06/22/20 10:13 Dose: 25 mg Documented by: Morphine Sulfate () 2 mg IV Q3H PRN PRN PRN Reason: Pain Score 6-10/10 Nicotine (Nicoderm Cq (Pbkc)) 21 mg TRANSDERM. DAILY [facility] Last Admin: 06/22/20 11:48 Dose: 21 mg Documented by: Oxycodone HCl (Oxyir) 5 mg PO Q4H PRN PRN PRN Reason: Pain Score 4-5/10 Last Admin: 06/21/20 02:23 Dose: 5 mg Documented by: Prochlorperazine Edisylate (Compazine Iv) 5 mg IV Q4H PRN PRN PRN Reason: Breakthrough Nausea/Vomiting Last Admin: 06/21/20 14:45 Dose: 5 mg Documented by: Senna/Docusate Sodium (Senokot-S, Karuna-Colace) 2 tablet PO BID PRN PRN PRN Reason: Constipation Sodium Chloride () 10 - 40 ml IV UD PRN PRN Reason: SALINE FLUSH Last Admin: 06/21/20 14:47 Dose: 10 ml Documented by: STROKE Vital Signs/Narrative: Vital Signs Pulse BP 06/22/20 10:13 83 130/60 H Medical Necessity - Tobacco Use Smoking Status: Current every day smoker Tobacco Use: Cigarettes Assessment/Plan All Active Problems Lower extremity edema (Acute) LIZY (acute kidney injury) (Acute) The patient is a 49 year old M with history of type 2 diabetes mellitus and hypertension came to ED with bilateral lower extremity edema and increasing abdominal girth for 2 to 3 weeks, consistent with new onset CHF Chest x-ray individually reviewed and shows mild interstitial edema and moderate cardiac enlargement. EKG sinus tachycardia with PVCs at 119 bpm, low voltage QRS. No previous EKG, echo or admission in our hospital 1. 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 Heart failure core measures at this time energy, fluid restriction, intake and output and 2 g sodium diet. 06/21: 2D echo reviewed with the director software development, Dr. Metzger. EF 15%, stage I diastolic dysfunction with trivial MR. Severe global hypokinesis of LV. Cardiology consult. 06/22: Patient on Lasix drip. Baker catheterization for strict intake and output and patient is in LIZY. Cardiac cath canceled as patient creatinine went up. 2. Acute kidney injury on CKD stage III, diabetic nephropathy/proteinuria most probably secondary to cardiorenal disease/heart failure with mild hyperkalemia: Nephrology consult reviewed. Patient has proteinuria probably diabetic nephropathy and urine microalbuminuria last year therefore patient actually has chronic kidney disease diabetic nephropathy. Baseline creatinine 0.9) 1.68. 3. Hypertension: Patient blood pressure is controlled. Hold lisinopril. Currently on Lasix drip and metolazone. 4.. Diabetes mellitus type 2: Glucose 116. Accu-Chek essentials and cover with Humalog sliding scale. A1c 6.1. Accu-Cheks are between 100-130 mg/dL. 4. Obstructive sleep apnea: Patient not using CPAP at home because of the mask/claustrophobia. CPAP ordered. Patient was encouraged to follow-up in pulmonary clinic for the sleep study titration and nasal CPAP. VTE prophylaxis, moderate risk: Lovenox 40 mg subcu daily. Total time of the visit including total time spent in counseling or coordination of care, (more than 50% of the total time, spent in obtaining medical information from nurses and other ancillary care providers), discussion with the director software development and phlebotomy instructor, review of labs and imaging and echo is 30 minutes. Inpatient E&M: 22727 Subs Hosp L3
--- NOTE | 2020-06-22 14:30 | PCM.CONS.R ---
Problem List (1) LIZY (acute kidney injury) Status: Acute Consultation - Renal 06/22/20 PCP/ Referring MD: Requesting physician: [] Primary care physician: Dr. Giuliano Jennings MD Reason for Consultation:: LIZY - History of Present Illness History of Present Illness: The patient is a 49 year old M who is admitted to the hospital with complaints of severe lower extremity edema, abdominal distention. Apparently he developed sudden onset of swelling about 2 weeks ago. Baseline weight is around 280 pounds and he is now up to 315 pounds or so. Work-up since admission showed echocardiogram with ejection fraction of 15%. No prior kidney disease. Primary care physician is Dr. Dial. Last creatinine was 0.9 from 2019. Creatinine is now up to 1.6. Denies any obstructive symptoms. - Allergies Allergies: Allergies No Known Allergies Allergy (Verified 06/20/20 08:47) - Current Medications Current Medications: Current Medications Acetaminophen (Tylenol) 650 mg PO Q6H PRN PRN PRN Reason: Pain Score 1-10/Temp > 100.7 F Last Admin: 06/21/20 08:28 Dose: 650 mg Documented by: Al Hydroxide/Mg Hydroxide (Mylanta Ii) 30 ml PO Q6H PRN PRN PRN Reason: Gastric Burning Albuterol Sulfate (Ventolin Aerosols) 2.5 mg INHALATION Q2H PRN PRN PRN Reason: SOB/Wheezing Atorvastatin Calcium (Lipitor) 40 mg PO QHS [facility] Last Admin: 06/21/20 20:57 Dose: 40 mg Documented by: Dextrose (D50w Syringe) 0 gm IV X1 PRN; Protocol PRN Reason: Hypoglycemia Enoxaparin Sodium (Lovenox) 40 mg SC DAILY [facility] Last Admin: 06/22/20 09:07 Dose: Not Given Documented by: Glucagon () 1 mg IM .X1 PRN PRN Reason: Hypoglycemia Furosemide 500 mg/ N/A 50 mls @ 1 mls/hr CONT INF .Q50H [facility] Last Admin: 06/22/20 11:52 Dose: 10 mg/hr, 1 mls/hr Documented by: Insulin Human Lispro (Humalog Kwikpen (Bkc)) 0 unit SC ACHS [facility]; Protocol Last Admin: 06/22/20 10:19 Dose: Not Given Documented by: Lorazepam (Ativan) 0.5 mg PO Q8H PRN PRN PRN Reason: severe anxiety Last Admin: 06/22/20 10:17 Dose: 0.5 mg Documented by: Metolazone (Zaroxolyn) 5 mg PO DAILY [facility] Metoprolol Tartrate (Lopressor (Beta Edin)) 25 mg PO BID [facility] Last Admin: 06/22/20 10:13 Dose: 25 mg Documented by: Morphine Sulfate () 2 mg IV Q3H PRN PRN PRN Reason: Pain Score 6-10/10 Nicotine (Nicoderm Cq (Pbkc)) 21 mg TRANSDERM. DAILY [facility] Last Admin: 06/22/20 11:48 Dose: 21 mg Documented by: Oxycodone HCl (Oxyir) 5 mg PO Q4H PRN PRN PRN Reason: Pain Score 4-5/10 Last Admin: 06/21/20 02:23 Dose: 5 mg Documented by: Prochlorperazine Edisylate (Compazine Iv) 5 mg IV Q4H PRN PRN PRN Reason: Breakthrough Nausea/Vomiting Last Admin: 06/21/20 14:45 Dose: 5 mg Documented by: Senna/Docusate Sodium (Senokot-S, Karuna-Colace) 2 tablet PO BID PRN PRN PRN Reason: Constipation Sodium Chloride () 10 - 40 ml IV UD PRN PRN Reason: SALINE FLUSH Last Admin: 06/21/20 14:47 Dose: 10 ml Documented by: - Past Medical History Past Medical History (Chronic Problems): Chronic Problems Diabetes mellitus type 2 in obese (Chronic) Hypertension (Chronic) Sleep apnea (Chronic) - Social History Smoking Status: Current every day smoker Alcohol: None Drugs: None - Family History Paternal History Items: Heart Disease - GA/CABG Review of Systems Constitutional: Denies: Chills, Fever, Weight Change HEENT: Denies: Head Aches, Sinus Congestion, Sinus Drainage Cardiovascular: Reports: Edema. Denies: Chest Pain, Palpitations Respiratory: Denies: Cough, Shortness of breath at rest, Sputum production Gastrointestinal: Denies: Abdominal Pain, Nausea, Vomiting Genitourinary: Denies: Dysuria Musculoskeletal: Denies: Joint Pain, Joint Tenderness Skin: Denies: Rash, Wounds Neurological: Denies: Numbness, Tingling, Focal weakness Psychiatric: Denies: Anxiety, Depression, Homicidal Ideations, Suicidal Ideations Hematologic/ Lymphatic: Denies: Easy Bruising, Easy Bleeding Patient Problems: Active and Suspected Problems Lower extremity edema (Acute) LIZY (acute kidney injury) (Acute) - Physical Exam Vitals/I&O's: Vital Signs Temp Pulse Resp BP Pulse Ox 98.1 F 84 16 130/60 H 88 06/22/20 14:00 06/22/20 14:00 06/22/20 14:00 06/22/20 14:00 06/22/20 14:00 Oxygen Flow Rate (L/min) 2 Oxygen Delivery Method Nasal Cannula Weight: 135.2 kg Body Mass Index (BMI) 41.1 Intake and Output for Last 24 Hours 06/20/20 06/21/20 06/22/20 23:59 23:59 23:59 Intake Total 610 / 610 1890 / 1890 550 / 550 Output Total 600 / 600 1050 / 1050 400 / 400 Balance 840 / 840 150 / 150 General: Alert, Oriented x3, Cooperative HEENT: Atraumatic, PERRLA, EOMI, Normocephalic Neck: Supple, No JVD, Negative Carotid Bruits Lungs: Clear to auscultation, Normal air movement Cardiovascular: Regular rate, No murmurs Abdomen: Bowel Sounds Present, Soft, Non Tender Extremities: Capillary Refill Less than 3 Seconds, Edema Skin: No rashes, No breakdown Musculoskeletal: No Tenderness to Palpation of Joints or Extremities Neurological: Cranial nerves II-XII grossly intact Psych/Mental Status: Normal Affect, Appropriate Laboratory Results 06/21/20 16:42: POC Glucose 119 H 06/21/20 20:55: POC Glucose 119 H 06/22/20 05:52: Sodium 132 L, Potassium 5.2 H, Chloride 96 L, Carbon Dioxide 33.0 H, Anion Gap 3 L, BUN 42 H, Creatinine 1.68 H, Estim Creat Clear Calc 56.03, Est GFR (MDRD) Af Amer 56 L, Est GFR (MDRD) Non-Af 46 L, BUN/Creatinine Ratio 25.0 H, Glucose 107 H, Calcium 8.7, Phosphorus 6.3 H, Magnesium 2.1 06/22/20 05:52: WBC 11.1 H, RBC 4.59 L, Hgb 13.2, Hct 45.1, MCV 98.3 H, MCH 28.8, MCHC 29.3 L, RDW Std Deviation 56.2 H, RDW Coeff of Adam 15.4 H, Plt Count 274, MPV 10.2, Immature Gran % (Auto) 0.300, Neut % (Auto) 65.8, Lymph % (Auto) 22.8, [place] % (Auto) 9.9, Eos % (Auto) 0.5, Baso % (Auto) 0.7, Absolute Neuts (auto) 7.3, Absolute Lymphs (auto) 2.53, Nucleated RBC % 0 06/22/20 05:52: PT 15.6 H, INR 1.3, APTT 25.3 06/22/20 06:38: POC Glucose 138 H 06/22/20 10:15: POC Glucose 104 Current Medications Acetaminophen (Tylenol) 650 mg PO Q6H PRN PRN PRN Reason: Pain Score 1-10/Temp > 100.7 F Last Admin: 06/21/20 08:28 Dose: 650 mg Documented by: Al Hydroxide/Mg Hydroxide (Mylanta Ii) 30 ml PO Q6H PRN PRN PRN Reason: Gastric Burning Albuterol Sulfate (Ventolin Aerosols) 2.5 mg INHALATION Q2H PRN PRN PRN Reason: SOB/Wheezing Atorvastatin Calcium (Lipitor) 40 mg PO QHS [facility] Last Admin: 06/21/20 20:57 Dose: 40 mg Documented by: Dextrose (D50w Syringe) 0 gm IV X1 PRN; Protocol PRN Reason: Hypoglycemia Enoxaparin Sodium (Lovenox) 40 mg SC DAILY [facility] Last Admin: 06/22/20 09:07 Dose: Not Given Documented by: Glucagon () 1 mg IM .X1 PRN PRN Reason: Hypoglycemia Furosemide 500 mg/ N/A 50 mls @ 1 mls/hr CONT INF .Q50H [facility] Last Admin: 06/22/20 11:52 Dose: 10 mg/hr, 1 mls/hr Documented by: Insulin Human Lispro (Humalog Kwikpen (Bkc)) 0 unit SC [facility]; Protocol Last Admin: 06/22/20 10:19 Dose: Not Given Documented by: Lorazepam (Ativan) 0.5 mg PO Q8H PRN PRN PRN Reason: severe anxiety Last Admin: 06/22/20 10:17 Dose: 0.5 mg Documented by: Metolazone (Zaroxolyn) 5 mg PO DAILY [facility] Metoprolol Tartrate (Lopressor (Beta Edin)) 25 mg PO BID [facility] Last Admin: 06/22/20 10:13 Dose: 25 mg Documented by: Morphine Sulfate () 2 mg IV Q3H PRN PRN PRN Reason: Pain Score 6-10/10 Nicotine (Nicoderm Cq (Pbkc)) 21 mg TRANSDERM. DAILY [facility] Last Admin: 06/22/20 11:48 Dose: 21 mg Documented by: Oxycodone HCl (Oxyir) 5 mg PO Q4H PRN PRN PRN Reason: Pain Score 4-5/10 Last Admin: 06/21/20 02:23 Dose: 5 mg Documented by: Prochlorperazine Edisylate (Compazine Iv) 5 mg IV Q4H PRN PRN PRN Reason: Breakthrough Nausea/Vomiting Last Admin: 06/21/20 14:45 Dose: 5 mg Documented by: Senna/Docusate Sodium (Senokot-S, Karuna-Colace) 2 tablet PO BID PRN PRN PRN Reason: Constipation Sodium Chloride () 10 - 40 ml IV UD PRN PRN Reason: SALINE FLUSH Last Admin: 06/21/20 14:47 Dose: 10 ml Documented by: Assessment/Plan All Active Problems Lower extremity edema (Acute) LIZY (acute kidney injury) (Acute) Acute renal failure. Baseline creatinine is normal. CT abdomen did not show any hydronephrosis. This was not a contrast study. Urine analysis shows 3+ protein. We will send for quantification. He did have urine protein estimation last year and he had microalbuminuria. Blood pressure is acceptable. Currently on Lasix drip. Weight at least as per charts is higher today. Patient tells me that he is voiding more. Urine output documented is not very great. Add metolazone. Has massive edema of approximately 30 to 35 pounds. LIZY is likely cardiorenal syndrome. We will follow Thank you
[2020-06-22 16:31] LABS: Bedside Glucose 100 mg/dL (70-110)
[2020-06-22] MEDS: Acetaminophen 325 MG Tablet 650 MG PO (18:20)
[2020-06-22] MEDS: oxyCODONE 5 MG Tablet PO (20:01)
[2020-06-22] MEDS: MELATONIN 3 MG TABLET PO (21:11)
[2020-06-22] MEDS: Atorvastatin Calcium 40 MG Tablet PO (21:11)
[2020-06-22 21:41] LABS: Bedside Glucose 122 mg/dL (70-110)
[2020-06-23] VITALS (11 sets, daily range): BP systolic 104–124; BP diastolic 69–74; PULSE 81–95; RESP 18–20; TEMP 36.4–36.9; O2SAT 91–95
[2020-06-23] MEDS: Furosemide 500 MG in Empty Viaflex 50 mL 1 EACH CONT INF (00:36)
[2020-06-23] MEDS: oxyCODONE 5 MG Tablet PO ×3 (00:38→21:08)
[2020-06-23 06:33] LABS: Absolute Lymphocyte Count 2.02 X10^3/uL (0.83-4.51); Absolute Neutrophil Count 7.7 X10^3/uL (2.0-7.7); Basophil# 0.05 X10^3/uL; Basophil% 0.5 % (0-1); Eosinophil# 0.12 X10^3/uL; Eosinophils% 1.1 % (0-5); Hematocrit 43.3 % (40-54); Lymphocyte # 2.02 X10^3/ul (4.0); Lymphocyte % 18.6 % (19-41); Mean Corpuscular Hgb 29.2 pg (27.0-32.0); Mean Corpuscular Volume 97.3 fL (80-94); Mean Platelet Vol. 10.2 fl (6.2-12.0); Monocyte% 9.2 % (0-10); NRBC Flagged by Analyzer 0 % (0-5); Neutrophil # 7.66 X10^3/uL (2.7-7.7); Neutrophil % 70.3 % (47-70); Platelet Count 251 K/mm3 (150-450); RBC Distribution Width CV 15.3 % (11.6-14.6); RBC Distribution Width SD 54.2 fl (35.1-43.9); Red Blood Count 4.45 M/mm3 (4.6-6.2); White Blood Count 10.9 K/mm3 (4.4-11.0)
[2020-06-23 06:55] LABS: Anion Gap 2 (5-15); BUN 45 mg/dL (7-18); BUN/Creat Ratio 33.3 RATIO (10-20); Calcium,Total 8.6 mg/dL (8.5-10.1); Chloride 92 mmol/L (98-107); Creatinine, Serum 1.35 mg/dL (0.70-1.30); EST Glomerular Filtration Rate 59 mL/min (>60); Est Glom Filt Rate - Afr Amer 72 mL/min (>60); Estimated Creatinine Clearance 69.72 ml/min; Glucose 102 mg/dL (74-106); Sodium Level 132 mmol/L (136-145)
[2020-06-23 06:55] LABS: Bedside Glucose 104 mg/dL (70-110)
[2020-06-23] MEDS: Enoxaparin 40 MG/0.4 ML Syringe SC (09:42)
[2020-06-23] MEDS: Metoprolol Tartrate 25 MG Tablet PO ×2 (09:42→21:07)
[2020-06-23] MEDS: metOLazone 5 MG Tablet PO (09:42)
--- NOTE | 2020-06-23 10:20 | PCM.PN.CARD ---
Subjectve: 49-year-old patient seen and evaluated today at bedside along with the nursing staff Sitting out in a chair feeling better on the current treatment with IV infusion of Lasix and addition of Zaroxolyn Has severe LV systolic dysfunction with a clinical presentation of congestive heart failure Has bilateral lower extremity edema and shortness of breath. Patient has multiple medical comorbidities with diabetes mellitus Hypertension Chronic sleep apnea equipment monitor phototypesetting underlying rhythm is sinus rhythm he had episode of nonsustained V. tach has been stable clinically. As he has renal impairment CARMENCITA inhibitor, ARB or Entresto is not indicated at this point He is currently on beta-estephania metoprolol in addition to low-dose aspirin, statin, We will continue to monitor electrolytes and renal function.. Patient will need further evaluation by cardiac catheterization Very high risk patient with severe LV systolic dysfunction Also recommend a LifeVest prior to discharge. I discussed the cardiac care plan in detail with the patient and nursing staff. Objective: Vital Signs Temp Pulse Resp BP Pulse Ox 98.1 F 90 20 H 124/72 H 94 06/23/20 09:40 06/23/20 09:42 06/23/20 09:40 06/23/20 09:40 06/23/20 09:40 Oxygen Flow Rate (L/min) 3 Oxygen Delivery Method Nasal Cannula Weight: 293 lb 6.964 oz Body Mass Index (BMI) 41.1 Intake and Output for Last 24 Hours 06/21/20 06/22/20 06/23/20 23:59 23:59 23:59 Intake Total 1890 / 1890 1190 / 1190 132.73 / 132.73 Output Total 1050 / 1050 2125 / 2125 1000 / 1000 Balance 840 / 840 -935 / -935 -867.27 / -867.27 06/23/20 06:07: Sodium 132 L, Potassium 4.0, Chloride 92 L, Carbon Dioxide 38.0 H, Anion Gap 2 L, BUN 45 H, Creatinine 1.35 H, Est GFR (MDRD) Af Amer 72, Est GFR (MDRD) Non-Af 59 L, BUN/Creatinine Ratio 33.3 H, Glucose 102, Calcium 8.6 06/23/20 06:07: WBC 10.9, RBC 4.45 L, Hgb 13.0, Hct 43.3, MCV 97.3 H, MCH 29.2, MCHC 30.0 L, Plt Count 251, MPV 10.2, Immature Gran % (Auto) 0.300, Neut % (Auto) 70.3 H, Lymph % (Auto) 18.6 L, [place] % (Auto) 9.2, Eos % (Auto) 1.1, Baso % (Auto) 0.5, Absolute Neuts (auto) 7.7, Nucleated RBC % 0 Rhythm: EKG: ECHO: Stress Test: Cardiac Cath: PCI: CT Surgery: Holter monitor: EPS: PPM: CXR: Chest CT Scan: Medical Necessity - Tobacco Use Smoking Status: Current every day smoker Tobacco Use: Cigarettes
--- NOTE | 2020-06-23 11:19 | PCM.PN.HOSP ---
Patient Problems: Active and Suspected Problems Lower extremity edema (Acute) LIZY (acute kidney injury) (Acute) Reason for Visit: Patient is feeling more comfortable with shortness of breath. He is sitting upright, good urine output. Net fluid balance negative 1000 mL. He had about 2 L urine output yesterday. Physical exam General: Alert, Oriented x3, Cooperative HEENT: Atraumatic, PERRLA, EOMI, Normocephalic Oral: No Gingival or Mucosal Lesions/ Ulcerations Neck: Supple, No JVD, Negative Carotid Bruits Lungs: Air entry diminished in bilateral lung bases. Lungs are more clear than before. No dyspnea at rest but is still orthopnea present. Cardiovascular: Regular rate, Regular Rhythm, Normal S1, Normal S2, No murmurs. HAYS and orthopnea present. PVCs and short run of NSVT on phototypesetting equipment monitor Abdomen: Bowel Sounds Present, Soft, Non Tender, mild ascites and subcutaneous edema of abdominal wall : No renal angle tenderness. No suprapubic tenderness. Extremities: Bilateral lower extremity from the knees downward. Capillary Refill Less than 3 Seconds Skin: No rashes, No breakdown Musculoskeletal: No Tenderness to Palpation of Joints or Extremities Neurological: Cranial nerves II-XII grossly intact, Deep Tendon Reflexes 2+/4 and Symmetrical, Neuro grossly intact Psych/Mental Status: Normal Affect, Appropriate. Vitals/I&O's: Vital Signs Temp Pulse Resp BP Pulse Ox 98.1 F 90 20 H 124/72 H 94 06/23/20 09:40 06/23/20 09:42 06/23/20 09:40 06/23/20 09:40 06/23/20 09:40 Oxygen Flow Rate (L/min) 3 Oxygen Delivery Method Nasal Cannula Weight: 293 lb 6.964 oz Body Mass Index (BMI) 41.1 Intake and Output for Last 24 Hours 06/21/20 06/22/20 06/23/20 23:59 23:59 23:59 Intake Total 1890 / 1890 1190 / 1190 132.73 / 132.73 Output Total 1050 / 1050 2125 / 2125 1000 / 1000 Balance 840 / 840 -935 / -935 -867.27 / -867.27 Laboratory Results 06/22/20 14:55: Urine Creatinine 165.00 06/22/20 14:55: U Random Total Protein 21.0 H 06/22/20 16:22: POC Glucose 100 06/22/20 21:09: POC Glucose 122 H 06/23/20 06:07: Sodium 132 L, Potassium 4.0, Chloride 92 L, Carbon Dioxide 38.0 H, Anion Gap 2 L, BUN 45 H, Creatinine 1.35 H, Estim Creat Clear Calc 69.72, Est GFR (MDRD) Af Amer 72, Est GFR (MDRD) Non-Af 59 L, BUN/Creatinine Ratio 33.3 H, Glucose 102, Calcium 8.6 06/23/20 06:07: WBC 10.9, RBC 4.45 L, Hgb 13.0, Hct 43.3, MCV 97.3 H, MCH 29.2, MCHC 30.0 L, RDW Std Deviation 54.2 H, RDW Coeff of Adam 15.3 H, Plt Count 251, MPV 10.2, Immature Gran % (Auto) 0.300, Neut % (Auto) 70.3 H, Lymph % (Auto) 18.6 L, [place] % (Auto) 9.2, Eos % (Auto) 1.1, Baso % (Auto) 0.5, Absolute Neuts (auto) 7.7, Absolute Lymphs (auto) 2.02, Nucleated RBC % 0 06/23/20 06:07: Magnesium Pending 06/23/20 06:49: POC Glucose 104 Current Medications Acetaminophen (Tylenol) 650 mg PO Q6H PRN PRN PRN Reason: Pain Score 1-10/Temp > 100.7 F Last Admin: 06/22/20 18:20 Dose: 650 mg Documented by: Al Hydroxide/Mg Hydroxide (Mylanta Ii) 30 ml PO Q6H PRN PRN PRN Reason: Gastric Burning Albuterol Sulfate (Ventolin Aerosols) 2.5 mg INHALATION Q2H PRN PRN PRN Reason: SOB/Wheezing Aspirin (Aspirin, Baby) 81 mg PO DAILY@0800 [facility] Atorvastatin Calcium (Lipitor) 40 mg PO QHS [facility] Last Admin: 06/22/20 21:11 Dose: 40 mg Documented by: Dextrose (D50w Syringe) 0 gm IV X1 PRN; Protocol PRN Reason: Hypoglycemia Enoxaparin Sodium (Lovenox) 40 mg SC DAILY [facility] Last Admin: 06/23/20 09:42 Dose: 40 mg Documented by: Glucagon () 1 mg IM .X1 PRN PRN Reason: Hypoglycemia Furosemide 500 mg/ N/A 50 mls @ 1 mls/hr CONT INF .Q50H [facility] Last Admin: 06/23/20 00:36 Dose: 10 mg/hr, 1 mls/hr Documented by: Insulin Human Lispro (Humalog Kwikpen (Bkc)) 0 unit SC ACHS [facility]; Protocol Last Admin: 06/23/20 07:02 Dose: Not Given Documented by: Lidocaine HCl (Xylocaine 2% Jelly) 1 applic TOPICAL Q6H PRN; Protocol PRN Reason: penial pain from catheter Lorazepam (Ativan) 0.5 mg PO Q8H PRN PRN PRN Reason: severe anxiety Last Admin: 06/22/20 18:18 Dose: 0.5 mg Documented by: Melatonin (Melatonin) 3 mg PO QHS [facility] Last Admin: 06/22/20 21:11 Dose: 3 mg Documented by: Metolazone (Zaroxolyn) 5 mg PO DAILY [facility] Last Admin: 06/23/20 09:42 Dose: 5 mg Documented by: Metoprolol Tartrate (Lopressor (Beta Edin)) 25 mg PO BID [facility] Last Admin: 06/23/20 09:42 Dose: 25 mg Documented by: Morphine Sulfate () 2 mg IV Q3H PRN PRN PRN Reason: Pain Score 6-10/10 Nicotine (Nicoderm Cq (Pbkc)) 21 mg TRANSDERM. DAILY [facility] Last Admin: 06/23/20 09:42 Dose: 21 mg Documented by: Oxycodone HCl (Oxyir) 5 mg PO Q4H PRN PRN PRN Reason: Pain Score 4-5/10 Last Admin: 06/23/20 09:44 Dose: 5 mg Documented by: Prochlorperazine Edisylate (Compazine Iv) 5 mg IV Q4H PRN PRN PRN Reason: Breakthrough Nausea/Vomiting Last Admin: 06/21/20 14:45 Dose: 5 mg Documented by: Senna/Docusate Sodium (Senokot-S, Karuna-Colace) 2 tablet PO BID PRN PRN PRN Reason: Constipation Sodium Chloride () 10 - 40 ml IV UD PRN PRN Reason: SALINE FLUSH Last Admin: 06/21/20 14:47 Dose: 10 ml Documented by: STROKE Vital Signs/Narrative: Vital Signs Temp Pulse Resp BP Pulse Ox 06/23/20 09:42 90 06/23/20 09:40 98.1 F 90 20 H 124/72 H 94 Medical Necessity - Tobacco Use Smoking Status: Current every day smoker Tobacco Use: Cigarettes Assessment/Plan All Active Problems Lower extremity edema (Acute) LIZY (acute kidney injury) (Acute) The patient is a 49 year old M with history of type 2 diabetes mellitus and hypertension came to ED with bilateral lower extremity edema and increasing abdominal girth for 2 to 3 weeks, consistent with new onset CHF Chest x-ray individually reviewed and shows mild interstitial edema and moderate cardiac enlargement. EKG sinus tachycardia with PVCs at 119 bpm, low voltage QRS. No previous EKG, echo or admission in our hospital 1. 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 Heart failure core measures at this time energy, fluid restriction, intake and output and 2 g sodium diet. 06/21: 2D echo reviewed with the paper cone drying machine operator, Dr. Metzger. EF 15%, stage I diastolic dysfunction with trivial MR. Severe global hypokinesis of LV. Cardiology consult. 06/22: Patient on Lasix drip. Baker catheterization for strict intake and output and patient is in LIZY. Cardiac cath canceled as patient creatinine went up. 06/23: Continue Lasix drip. Zaroxolyn was added by ladle liner helper. Had good 2 L urine output in last 24 hours with -1 L fluid balance. Shortness of breath is much improved. Telephone Maintainer recommended cardiac cath during this hospital stay and vest at the time of discharge 2. Acute kidney injury on CKD stage III, diabetic nephropathy/proteinuria most probably secondary to cardiorenal disease/heart failure with mild hyperkalemia: Nephrology consult reviewed. Patient has proteinuria probably diabetic nephropathy and urine microalbuminuria last year therefore patient actually has chronic kidney disease diabetic nephropathy. Baseline creatinine 0.9) 1.68. 06/23: BUN/creatinine is improved. K4.0. Magnesium pending 3. Hypertension: Patient blood pressure is controlled. Hold lisinopril. Currently on Lasix drip and metolazone. 4.. Diabetes mellitus type 2: Glucose 116. Accu-Chek essentials and cover with Humalog sliding scale. A1c 6.1. Accu-Cheks are between 100-130 mg/dL. 4. Obstructive sleep apnea: Patient not using CPAP at home because of the mask/claustrophobia. CPAP ordered. Patient was encouraged to follow-up in pulmonary clinic for the sleep study titration and nasal CPAP. VTE prophylaxis, moderate risk: Lovenox 40 mg subcu daily. Total time of the visit including total time spent in counseling or coordination of care, (more than 50% of the total time, spent in obtaining medical information from nurses and other ancillary care providers), discussion with the paper cone drying machine operator and ladle liner helper, review of labs and imaging and echo is 30 minutes. Inpatient E&M: [id number] [facility] L3
[2020-06-23 11:24] LABS: Magnesium 1.8 mg/dL (1.6-2.6)
[2020-06-23] MEDS: Aspirin 81 MG TAB.CHEW PO (11:26)
[2020-06-23 11:40] LABS: Bedside Glucose 149 mg/dL (70-110)
[2020-06-23] MEDS: 0.9% Saline Lock 10 ML Syringe IV (15:22)
[2020-06-23 17:20] LABS: Bedside Glucose 111 mg/dL (70-110)
--- NOTE | 2020-06-23 17:28 | PCM.PN.REN ---
Patient Problems: Active and Suspected Problems Lower extremity edema (Acute) LIZY (acute kidney injury) (Acute) Subjective: no new complaints - Physical Exam Vitals/I&O's: Vital Signs Temp Pulse Resp BP Pulse Ox 98.1 F 91 20 H 113/74 95 06/23/20 15:25 06/23/20 15:25 06/23/20 15:25 06/23/20 15:25 06/23/20 15:25 Oxygen Flow Rate (L/min) 2 Oxygen Delivery Method Nasal Cannula Weight: 133.1 kg Body Mass Index (BMI) 41.1 Intake and Output for Last 24 Hours 06/21/20 06/22/20 06/23/20 23:59 23:59 23:59 Intake Total 1890 / 1890 1190 / 1190 1076.73 / 1076.73 Output Total 1050 / 1050 2125 / 2125 6475 / 6475 Balance 840 / 840 -935 / -935 -5398.27 / -5398.27 General: Alert, Oriented x3, Cooperative HEENT: Atraumatic, PERRLA, EOMI, Normocephalic Neck: Supple, No JVD, Negative Carotid Bruits Lungs: Clear to auscultation, Normal air movement Cardiovascular: Regular rate, No murmurs Abdomen: Bowel Sounds Present, Soft, Non Tender Extremities: Capillary Refill Less than 3 Seconds, Edema Skin: No rashes, No breakdown Musculoskeletal: No Tenderness to Palpation of Joints or Extremities Neurological: Cranial nerves II-XII grossly intact Psych/Mental Status: Normal Affect, Appropriate Laboratory Results 06/22/20 21:09: POC Glucose 122 H 06/23/20 06:07: Sodium 132 L, Potassium 4.0, Chloride 92 L, Carbon Dioxide 38.0 H, Anion Gap 2 L, BUN 45 H, Creatinine 1.35 H, Estim Creat Clear Calc 69.72, Est GFR (MDRD) Af Amer 72, Est GFR (MDRD) Non-Af 59 L, BUN/Creatinine Ratio 33.3 H, Glucose 102, Calcium 8.6 06/23/20 06:07: WBC 10.9, RBC 4.45 L, Hgb 13.0, Hct 43.3, MCV 97.3 H, MCH 29.2, MCHC 30.0 L, RDW Std Deviation 54.2 H, RDW Coeff of Adam 15.3 H, Plt Count 251, MPV 10.2, Immature Gran % (Auto) 0.300, Neut % (Auto) 70.3 H, Lymph % (Auto) 18.6 L, [place] % (Auto) 9.2, Eos % (Auto) 1.1, Baso % (Auto) 0.5, Absolute Neuts (auto) 7.7, Absolute Lymphs (auto) 2.02, Nucleated RBC % 0 06/23/20 06:07: Magnesium 1.8 06/23/20 06:49: POC Glucose 104 06/23/20 11:25: POC Glucose 149 H 06/23/20 17:05: POC Glucose 111 H Current Medications Acetaminophen (Tylenol) 650 mg PO Q6H PRN PRN PRN Reason: Pain Score 1-10/Temp > 100.7 F Last Admin: 06/22/20 18:20 Dose: 650 mg Documented by: Al Hydroxide/Mg Hydroxide (Mylanta Ii) 30 ml PO Q6H PRN PRN PRN Reason: Gastric Burning Albuterol Sulfate (Ventolin Aerosols) 2.5 mg INHALATION Q2H PRN PRN PRN Reason: SOB/Wheezing Aspirin (Aspirin, Baby) 81 mg PO DAILY@0800 COUNTS [facility]CLUDE 234 BEDS AT THE [facility] Last Admin: 06/23/20 11:26 Dose: 81 mg Documented by: Atorvastatin Calcium (Lipitor) 40 mg PO QHS COUNTS INCLUDE 234 BEDS AT THE [facility] Last Admin: 06/22/20 21:11 Dose: 40 mg Documented by: Dextrose (D50w Syringe) 0 gm IV X1 PRN; Protocol PRN Reason: Hypoglycemia Enoxaparin Sodium (Lovenox) 40 mg SC DAILY COUNTS INCLUDE 234 BEDS AT THE [facility] Last Admin: 06/23/20 09:42 Dose: 40 mg Documented by: Glucagon () 1 mg IM .X1 PRN PRN Reason: Hypoglycemia Furosemide 500 mg/ N/A 50 mls @ 1 mls/hr CONT INF .Q50H COUNTS INCLUDE 234 BEDS AT THE [facility] Last Admin: 06/23/20 00:36 Dose: 10 mg/hr, 1 mls/hr Documented by: Insulin Human Lispro (Humalog Kwikpen (Bkc)) 0 unit SC ACHS COUNTS INCLUDE 234 BEDS AT THE [facility]; Protocol Last Admin: 06/23/20 17:19 Dose: Not Given Documented by: Lidocaine HCl (Xylocaine 2% Jelly) 1 applic TOPICAL Q6H PRN; Protocol PRN Reason: penial pain from catheter Lorazepam (Ativan) 0.5 mg PO Q8H PRN PRN PRN Reason: severe anxiety Last Admin: 06/22/20 18:18 Dose: 0.5 mg Documented by: Melatonin (Melatonin) 3 mg PO QHS COUNTS INCLUDE 234 BEDS AT THE [facility] Last Admin: 06/22/20 21:11 Dose: 3 mg Documented by: Metolazone (Zaroxolyn) 5 mg PO DAILY COUNTS INCLUDE 234 BEDS AT THE [facility] Last Admin: 06/23/20 09:42 Dose: 5 mg Documented by: Metoprolol Tartrate (Lopressor (Beta Edin)) 25 mg PO BID COUNTS INCLUDE 234 BEDS AT THE [facility] Last Admin: 06/23/20 09:42 Dose: 25 mg Documented by: Morphine Sulfate () 2 mg IV Q3H PRN PRN PRN Reason: Pain Score 6-10/10 Nicotine (Nicoderm Cq (Pbkc)) 21 mg TRANSDERM. DAILY COUNTS INCLUDE 234 BEDS AT THE [facility] Last Admin: 06/23/20 09:42 Dose: 21 mg Documented by: Oxycodone HCl (Oxyir) 5 mg PO Q4H PRN PRN PRN Reason: Pain Score 4-5/10 Last Admin: 06/23/20 09:44 Dose: 5 mg Documented by: Prochlorperazine Edisylate (Compazine Iv) 5 mg IV Q4H PRN PRN PRN Reason: Breakthrough Nausea/Vomiting Last Admin: 06/21/20 14:45 Dose: 5 mg Documented by: Senna/Docusate Sodium (Senokot-S, Karuna-Colace) 2 tablet PO BID PRN PRN PRN Reason: Constipation Sodium Chloride () 10 - 40 ml IV UD PRN PRN Reason: SALINE FLUSH Last Admin: 06/23/20 15:22 Dose: 10 ml Documented by: Medical Necessity - Tobacco Use Smoking Status: Current every day smoker Tobacco Use: Cigarettes Assessment/Plan All Active Problems Lower extremity edema (Acute) LIZY (acute kidney injury) (Acute) Acute renal failure. Baseline creatinine is normal. CT abdomen did not show any hydronephrosis. This was not a contrast study. Urine analysis shows 3+ protein. urine PCR is not impressive. Blood pressure is acceptable. LIZY is likely cardiorenal syndrome CHF. good response to lasix drip and metolazone. continue for today K is better wants arora out. ok with me We will follow Thank you
--- NOTE | 2020-06-23 19:16 | CPS ---
Discussed with patient about CPAP order. Said that he hasn't worn a CPAP in months. Patient said that he does not know settings and has been sleeping okay without it. Does not want to use hospital's machine while here.
[2020-06-23] MEDS: MELATONIN 3 MG TABLET PO (21:07)
[2020-06-23] MEDS: Atorvastatin Calcium 40 MG Tablet PO (21:07)
[2020-06-23] MEDS: Senna/Docusate Sodium 1 Tablet 2 TABLET PO (21:07)
[2020-06-23] MEDS: LORazepam 0.5 MG Tablet PO (21:08)
[2020-06-23 22:46] LABS: Bedside Glucose 144 mg/dL (70-110)
[2020-06-24] VITALS (13 sets, daily range): BP systolic 99–124; BP diastolic 68–75; PULSE 86–99; RESP 14–20; TEMP 36.4–37.2; O2SAT 93–97
[2020-06-24 05:47] LABS: Absolute Lymphocyte Count 2.16 X10^3/uL (0.83-4.51); Absolute Neutrophil Count 7.3 X10^3/uL (2.0-7.7); Basophil# 0.07 X10^3/uL; Basophil% 0.6 % (0-1); Eosinophil# 0.18 X10^3/uL; Eosinophils% 1.7 % (0-5); Hematocrit 44.2 % (40-54); Hemoglobin 13.4 g/dL (13.0-16.5); Lymphocyte # 2.16 X10^3/ul (4.0); Lymphocyte % 19.9 % (19-41); Mean Corp Hgb Conc 30.3 g/dL (32-36); Mean Corpuscular Hgb 28.8 pg (27.0-32.0); Mean Corpuscular Volume 94.8 fL (80-94); Mean Platelet Vol. 9.9 fl (6.2-12.0); Monocyte# 1.09 X10^3/uL; NRBC Flagged by Analyzer 0 % (0-5); Neutrophil # 7.34 X10^3/uL (2.7-7.7); Neutrophil % 67.5 % (47-70); Platelet Count 241 K/mm3 (150-450); RBC Distribution Width CV 15.1 % (11.6-14.6); RBC Distribution Width SD 52.8 fl (35.1-43.9); Red Blood Count 4.66 M/mm3 (4.6-6.2); White Blood Count 10.9 K/mm3 (4.4-11.0)
[2020-06-24 06:14] LABS: BUN 36 mg/dL (7-18); BUN/Creat Ratio 30.3 RATIO (10-20); Carbon Dioxide > 45.0 mmol/L (21.0-32.0); Chloride 82 mmol/L (98-107); Creatinine, Serum 1.19 mg/dL (0.70-1.30); EST Glomerular Filtration Rate 69 mL/min (>60); Est Glom Filt Rate - Afr Amer 83 mL/min (>60); Glucose 106 mg/dL (74-106); Magnesium 2.1 mg/dL (1.6-2.6); Potassium 3.1 mmol/L (3.5-5.1); Sodium Level 131 mmol/L (136-145)
[2020-06-24 06:56] LABS: Bedside Glucose 114 mg/dL (70-110)
[2020-06-24] MEDS: Enoxaparin 40 MG/0.4 ML Syringe SC (08:48)
[2020-06-24] MEDS: metOLazone 5 MG Tablet PO (08:48)
[2020-06-24] MEDS: Aspirin 81 MG TAB.CHEW PO (08:48)
[2020-06-24] MEDS: Metoprolol Tartrate 25 MG Tablet PO ×2 (08:48→22:54)
--- NOTE | 2020-06-24 09:35 | PN.RENAL_ITS ---
Patient Problems: Active and Suspected Problems Lower extremity edema (Acute) LIZY (acute kidney injury) (Acute) Subjective: no new events - Physical Exam Vitals/I&O's: Vital Signs Temp Pulse Resp BP Pulse Ox 97.6 F L 94 18 124/73 H 94 06/24/20 08:20 06/24/20 08:48 06/24/20 08:20 06/24/20 08:20 06/24/20 08:20 Oxygen Flow Rate (L/min) 2 Oxygen Delivery Method Nasal Cannula Weight: 133 kg Body Mass Index (BMI) 41.1 Intake and Output for Last 24 Hours 06/22/20 06/23/20 06/24/20 23:59 23:59 23:59 Intake Total 1190 / 1190 1476.73 / 1476.73 120 / 120 Output Total 2125 / 2125 9025 / 9025 1650 / 1650 Balance -935 / -935 -7548.27 / -7548.27 -1530 / -1530 General: Alert, Oriented x3, Cooperative HEENT: Atraumatic, PERRLA, EOMI, Normocephalic Neck: Supple, No JVD, Negative Carotid Bruits Lungs: Clear to auscultation, Normal air movement Cardiovascular: Regular rate, No murmurs Abdomen: Bowel Sounds Present, Soft, Non Tender Extremities: No edema, Capillary Refill Less than 3 Seconds Skin: No rashes, No breakdown Musculoskeletal: No Tenderness to Palpation of Joints or Extremities Neurological: Cranial nerves II-XII grossly intact Psych/Mental Status: Normal Affect, Appropriate Laboratory Results 06/23/20 06:07: Magnesium 1.8 06/23/20 11:25: POC Glucose 149 H 06/23/20 17:05: POC Glucose 111 H 06/23/20 21:05: POC Glucose 144 H 06/24/20 05:20: Sodium 131 L, Potassium 3.1 L, Chloride 82 L, Carbon Dioxide > 45.0 H*, Anion Gap TNP, BUN 36 H, Creatinine 1.19, Estim Creat Clear Calc 79.10, Est GFR (MDRD) Af Amer 83, Est GFR (MDRD) Non-Af 69, BUN/Creatinine Ratio 30.3 H , Glucose 106, Calcium 9.0, Magnesium 2.1 06/24/20 05:20: WBC 10.9, RBC 4.66, Hgb 13.4, Hct 44.2, MCV 94.8 H, MCH 28.8, MCHC 30.3 L, RDW Std Deviation 52.8 H, RDW Coeff of Adam 15.1 H, Plt Count 241, MPV 9.9, Immature Gran % (Auto) 0.300, Neut % (Auto) 67.5, Lymph % (Auto) 19.9, [place] % (Auto) 10.0, Eos % (Auto) 1.7, Baso % (Auto) 0.6, Absolute Neuts (auto) 7.3, Absolute Lymphs (auto) 2.16, Nucleated RBC % 0 06/24/20 06:36: POC Glucose 114 H Current Medications Acetaminophen (Tylenol) 650 mg PO Q6H PRN PRN PRN Reason: Pain Score 1-10/Temp > 100.7 F Last Admin: 06/22/20 18:20 Dose: 650 mg Documented by: Al Hydroxide/Mg Hydroxide (Mylanta Ii) 30 ml PO Q6H PRN PRN PRN Reason: Gastric Burning Albuterol Sulfate (Ventolin Aerosols) 2.5 mg INHALATION Q2H PRN PRN PRN Reason: SOB/Wheezing Aspirin (Aspirin, Baby) 81 mg PO DAILY@0800 [facility] Last Admin: 06/24/20 08:48 Dose: 81 mg Documented by: Atorvastatin Calcium (Lipitor) 40 mg PO QHS [facility] Last Admin: 06/23/20 21:07 Dose: 40 mg Documented by: Dextrose (D50w Syringe) 0 gm IV X1 PRN; Protocol PRN Reason: Hypoglycemia Enoxaparin Sodium (Lovenox) 40 mg SC DAILY [facility] Last Admin: 06/24/20 08:48 Dose: 40 mg Documented by: Furosemide (Lasix) 80 mg IV BID@1000,1800 [facility] Glucagon () 1 mg IM .X1 PRN PRN Reason: Hypoglycemia Insulin Human Lispro (Humalog Kwikpen (Bkc)) 0 unit SC [facility]; Protocol Last Admin: 06/24/20 06:36 Dose: Not Given Documented by: Lidocaine HCl (Xylocaine 2% Jelly) 1 applic TOPICAL Q6H PRN; Protocol PRN Reason: penial pain from catheter Lorazepam (Ativan) 0.5 mg PO Q8H PRN PRN PRN Reason: severe anxiety Last Admin: 06/23/20 21:08 Dose: 0.5 mg Documented by: Melatonin (Melatonin) 3 mg PO QHS [facility] Last Admin: 06/23/20 21:07 Dose: 3 mg Documented by: Metolazone (Zaroxolyn) 5 mg PO DAILY [facility] Last Admin: 06/24/20 08:48 Dose: 5 mg Documented by: Metoprolol Tartrate (Lopressor (Beta Edin)) 25 mg PO BID [facility] Last Admin: 06/24/20 08:48 Dose: 25 mg Documented by: Morphine Sulfate () 2 mg IV Q3H PRN PRN PRN Reason: Pain Score 6-10/10 Nicotine (Nicoderm Cq (Pbkc)) 21 mg TRANSDERM. DAILY [facility] Last Admin: 06/24/20 08:48 Dose: 21 mg Documented by: Oxycodone HCl (Oxyir) 5 mg PO Q4H PRN PRN PRN Reason: Pain Score 4-5/10 Last Admin: 06/23/20 21:08 Dose: 5 mg Documented by: Potassium Chloride (K-Dur) 40 meq PO TID [facility] Prochlorperazine Edisylate (Compazine Iv) 5 mg IV Q4H PRN PRN PRN Reason: Breakthrough Nausea/Vomiting Last Admin: 06/21/20 14:45 Dose: 5 mg Documented by: Senna/Docusate Sodium (Senokot-S, Karuna-Colace) 2 tablet PO BID PRN PRN PRN Reason: Constipation Last Admin: 06/23/20 21:07 Dose: 2 tablet Documented by: Sodium Chloride () 10 - 40 ml IV UD PRN PRN Reason: SALINE FLUSH Last Admin: 06/23/20 15:22 Dose: 10 ml Documented by: Medical Necessity - Tobacco Use Smoking Status: Current every day smoker Tobacco Use: Cigarettes Assessment/Plan All Active Problems Lower extremity edema (Acute) LIZY (acute kidney injury) (Acute) Acute renal failure. Baseline creatinine is normal. CT abdomen did not show any hydronephrosis. This was not a contrast study. Urine analysis shows 3+ protein. urine PCR is not impressive. Blood pressure is acceptable. LIZY is likely cardiorenal syndrome cr is better CHF. good response hypokalemia contraction alkalosis Plan change lasix to 80 mg BID bolus continue metolazone KCL to 40 meq TID. has severe contraction alkalosis with ongoing diuresis, will need massive K supplements
--- NOTE | 2020-06-24 10:56 | PCM.PN.CARD ---
Subjectve: 49-year-old patient, seen and evaluated today at bedside along with the nursing staff Sitting out in a chair feeling better Still having lower extremity swelling I discussed the case today with the mixing plant dumper His renal function improving gradually. IV infusion of Lasix has been discontinued substituted by IV Lasix every 12 hours. Current cardiac medication include statin, low-dose aspirin as well as beta-estephania The echocardiographic evaluation showed LV function is severely reduced and he is a high risk patient as he had repeated episode of nonsustained ventricular tachycardia on the school lunch monitor. 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 Patient will require further evaluation by cardiac catheterization to assess for coronary atherosclerosis and also to plan for LifeVest prior to discharge and to be seen and followed by top lift compressor on a regular basis. Due to his renal insufficiency not a candidate for CARMENCITA inhibitor or ARB or Entresto This medication can be readdressed as an outpatient once his renal function improve and based on the finding of cardiac catheterization. Objective: Vital Signs Temp Pulse Resp BP Pulse Ox 97.6 F L 94 18 124/73 H 94 06/24/20 08:20 06/24/20 08:48 06/24/20 08:20 06/24/20 08:20 06/24/20 08:20 Oxygen Flow Rate (L/min) 2 Oxygen Delivery Method Nasal Cannula Weight: 293 lb 3.437 oz Body Mass Index (BMI) 41.1 Intake and Output for Last 24 Hours 06/22/20 06/23/20 06/24/20 23:59 23:59 23:59 Intake Total 1190 / 1190 1476.73 / 1476.73 153.38 / 153.38 Output Total 2125 / 2125 9025 / 9025 1650 / 1650 Balance -935 / -935 -7548.27 / -7548.27 -1496.62 / -1496.62 General: Awake, Alert, Oriented x 3 HEENT: PERRL, EOMI, Sclera Non Icteric Neck: Supple, Good ROM, No Lymph Node Enlargement Lungs: Clear to auscultation Cardiovascular: Regular Rhythm, Normal S1, Normal S2, No Murmurs, No Rubs, No Gallops Extremities: Bilateral Edema +2 06/23/20 06:07: Magnesium 1.8 06/24/20 05:20: Sodium 131 L, Potassium 3.1 L, Chloride 82 L, Carbon Dioxide > 45.0 H*, Anion Gap TNP, BUN 36 H, Creatinine 1.19, Est GFR (MDRD) Af Amer 83, Est GFR (MDRD) Non-Af 69, BUN/Creatinine Ratio 30.3 H, Glucose 106, Calcium 9.0, Magnesium 2.1 06/24/20 05:20: WBC 10.9, RBC 4.66, Hgb 13.4, Hct 44.2, MCV 94.8 H, MCH 28.8, MCHC 30.3 L, Plt Count 241, MPV 9.9, Immature Gran % (Auto) 0.300, Neut % (Auto) 67.5, Lymph % (Auto) 19.9, [place] % (Auto) 10.0, Eos % (Auto) 1.7, Baso % (Auto) 0.6, Absolute Neuts (auto) 7.3, Nucleated RBC % 0 Rhythm: EKG: ECHO: Stress Test: Cardiac Cath: PCI: CT Surgery: Holter monitor: EPS: PPM: CXR: Chest CT Scan: Medical Necessity - Tobacco Use Smoking Status: Current every day smoker Tobacco Use: Cigarettes
[2020-06-24] MEDS: 0.9% Saline Lock 10 ML Syringe IV ×2 (11:18→17:26)
[2020-06-24] MEDS: Furosemide 100 MG/10 ML Vial 80 MG IV ×2 (11:18→17:26)
[2020-06-24] MEDS: Insulin Lispro 100 UNIT/ML INSULN.PEN SC (11:19)
[2020-06-24 11:35] LABS: Bedside Glucose 189 mg/dL (70-110)
--- NOTE | 2020-06-24 13:13 | PN_ITS ---
Patient Problems: Active and Suspected Problems Lower extremity edema (Acute) LIZY (acute kidney injury) (Acute) Reason for Visit: Follow-up for acute heart failure Objective: Patient had -11 L fluid loss with diuresis. Patient has contraction alkalosis with bicarb more than 45, K3.1. Overall, patient feels much better in regards to shortness of breath and leg swelling. Physical exam General: Alert, Oriented x3, Cooperative HEENT: Atraumatic, PERRLA, EOMI, Normocephalic Oral: No Gingival or Mucosal Lesions/ Ulcerations Neck: Supple, No JVD, Negative Carotid Bruits Lungs: Air entry diminished in bilateral lung bases. Bilateral occasional rales. Cardiovascular: Regular rate, Regular Rhythm, Normal S1, Normal S2, No murmurs. Occasional PVCs. Orthopnea absent. Abdomen: Bowel Sounds Present, Soft, Non Tender, : No renal angle tenderness. No suprapubic tenderness. Extremities: Bilateral lower extremity edema, improved. Capillary Refill Less than 3 Seconds Skin: No rashes, No breakdown Musculoskeletal: No Tenderness to Palpation of Joints or Extremities Neurological: Cranial nerves II-XII grossly intact, Deep Tendon Reflexes 2+/4 and Symmetrical, Neuro grossly intact Psych/Mental Status: Normal Affect, Appropriate. Vitals/I&O's: Vital Signs Temp Pulse Resp BP Pulse Ox 97.6 F L 94 18 124/73 H 94 06/24/20 08:20 06/24/20 08:48 06/24/20 08:20 06/24/20 08:20 06/24/20 08:20 Oxygen Flow Rate (L/min) 2 Oxygen Delivery Method Nasal Cannula Weight: 293 lb 3.437 oz Body Mass Index (BMI) 41.1 Intake and Output for Last 24 Hours 06/22/20 06/23/20 06/24/20 23:59 23:59 23:59 Intake Total 1190 / 1190 1476.73 / 1476.73 513.38 / 513.38 Output Total 2125 / 2125 9025 / 9025 4475 / 4475 Balance -935 / -935 -7548.27 / -7548.27 -3961.62 / -3961.62 Laboratory Results 06/23/20 17:05: POC Glucose 111 H 06/23/20 21:05: POC Glucose 144 H 06/24/20 05:20: Sodium 131 L, Potassium 3.1 L, Chloride 82 L, Carbon Dioxide > 45.0 H*, Anion Gap TNP, BUN 36 H, Creatinine 1.19, Estim Creat Clear Calc 79.10, Est GFR (MDRD) Af Amer 83, Est GFR (MDRD) Non-Af 69, BUN/Creatinine Ratio 30.3 H , Glucose 106, Calcium 9.0, Magnesium 2.1 06/24/20 05:20: WBC 10.9, RBC 4.66, Hgb 13.4, Hct 44.2, MCV 94.8 H, MCH 28.8, MCHC 30.3 L, RDW Std Deviation 52.8 H, RDW Coeff of Adam 15.1 H, Plt Count 241, MPV 9.9, Immature Gran % (Auto) 0.300, Neut % (Auto) 67.5, Lymph % (Auto) 19.9, [place] % (Auto) 10.0, Eos % (Auto) 1.7, Baso % (Auto) 0.6, Absolute Neuts (auto) 7.3, Absolute Lymphs (auto) 2.16, Nucleated RBC % 0 06/24/20 06:36: POC Glucose 114 H 06/24/20 11:16: POC Glucose 189 H Current Medications Acetaminophen (Tylenol) 650 mg PO Q6H PRN PRN PRN Reason: Pain Score 1-10/Temp > 100.7 F Last Admin: 06/22/20 18:20 Dose: 650 mg Documented by: Al Hydroxide/Mg Hydroxide (Mylanta Ii) 30 ml PO Q6H PRN PRN PRN Reason: Gastric Burning Albuterol Sulfate (Ventolin Aerosols) 2.5 mg INHALATION Q2H PRN PRN PRN Reason: SOB/Wheezing Aspirin (Aspirin, Baby) 81 mg PO DAILY@0800 [facility] Last Admin: 06/24/20 08:48 Dose: 81 mg Documented by: Atorvastatin Calcium (Lipitor) 40 mg PO QHS [facility] Last Admin: 06/23/20 21:07 Dose: 40 mg Documented by: Dextrose (D50w Syringe) 0 gm IV X1 PRN; Protocol PRN Reason: Hypoglycemia Enoxaparin Sodium (Lovenox) 40 mg SC DAILY [facility] Last Admin: 06/24/20 08:48 Dose: 40 mg Documented by: Furosemide (Lasix) 80 mg IV BID@1000,1800 [facility] Last Admin: 06/24/20 11:18 Dose: 80 mg Documented by: Glucagon () 1 mg IM .X1 PRN PRN Reason: Hypoglycemia Sodium Chloride () 1,000 mls @ 0 mls/hr IV .Q0M [facility] Insulin Human Lispro (Humalog Kwikpen (Bkc)) 0 unit SC ACHS [facility]; Protocol Last Admin: 06/24/20 11:19 Dose: 2 u Documented by: Lidocaine HCl (Xylocaine 2% Jelly) 1 applic TOPICAL Q6H PRN; Protocol PRN Reason: penial pain from catheter Lorazepam (Ativan) 0.5 mg PO Q8H PRN PRN PRN Reason: severe anxiety Last Admin: 06/23/20 21:08 Dose: 0.5 mg Documented by: Melatonin (Melatonin) 3 mg PO QHS [facility] Last Admin: 06/23/20 21:07 Dose: 3 mg Documented by: Metolazone (Zaroxolyn) 5 mg PO DAILY [facility] Last Admin: 06/24/20 08:48 Dose: 5 mg Documented by: Metoprolol Tartrate (Lopressor (Beta Edin)) 25 mg PO BID [facility] Last Admin: 06/24/20 08:48 Dose: 25 mg Documented by: Morphine Sulfate () 2 mg IV Q3H PRN PRN PRN Reason: Pain Score 6-10/10 Nicotine (Nicoderm Cq (Pbkc)) 21 mg TRANSDERM. DAILY [facility] Last Admin: 06/24/20 08:48 Dose: 21 mg Documented by: Oxycodone HCl (Oxyir) 5 mg PO Q4H PRN PRN PRN Reason: Pain Score 4-5/10 Last Admin: 06/23/20 21:08 Dose: 5 mg Documented by: Potassium Chloride (K-Dur) 40 meq PO TID [facility] Prochlorperazine Edisylate (Compazine Iv) 5 mg IV Q4H PRN PRN PRN Reason: Breakthrough Nausea/Vomiting Last Admin: 06/21/20 14:45 Dose: 5 mg Documented by: Senna/Docusate Sodium (Senokot-S, Karuna-Colace) 2 tablet PO BID PRN PRN PRN Reason: Constipation Last Admin: 06/23/20 21:07 Dose: 2 tablet Documented by: Sodium Chloride () 10 - 40 ml IV UD PRN PRN Reason: SALINE FLUSH Last Admin: 06/24/20 11:18 Dose: 10 ml Documented by: Medical Necessity - Tobacco Use Smoking Status: Current every day smoker Tobacco Use: Cigarettes Assessment/Plan All Active Problems Lower extremity edema (Acute) LIZY (acute kidney injury) (Acute) The patient is a 49 year old M with history of type 2 diabetes mellitus and hypertension came to ED with bilateral lower extremity edema and increasing abdominal girth for 2 to 3 weeks, consistent with new onset CHF Chest x-ray individually reviewed and shows mild interstitial edema and moderate cardiac enlargement. EKG sinus tachycardia with PVCs at 119 bpm, low voltage QRS. No previous EKG, echo or admission in our hospital 1. 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 Heart failure core measures at this time energy, fluid restriction, intake and output and 2 g sodium diet. 06/21: 2D echo reviewed with the instructor substitute cosmetology, Dr. Metzger. EF 15%, stage I diastolic dysfunction with trivial MR. Severe global hypokinesis of LV. Ca rdiology consult. 06/22: Patient on Lasix drip. Baker catheterization for strict intake and output and patient is in LIZY. Cardiac cath canceled as patient creatinine went up. 06/23: Continue Lasix drip. Zaroxolyn was added by pm head cook. Had good 2 L urine output in last 24 hours with -1 L fluid balance. Shortness of breath is much improved. Assistant Branch Operations Manager recommended cardiac cath during this hospital stay and vest at the time of discharge 06/24: Lasix changed to 80 mg IV twice daily. Continue metolazone. Severe hypokalemic alkalosis. On K. Dur 40 mEq 3 times daily. Patient had 5 pounds weight loss and -11 L fluid loss 2. Acute kidney injury on CKD stage III, diabetic nephropathy/proteinuria most probably secondary to cardiorenal disease/heart failure with mild hyperkalemia: Nephrology consult reviewed. Patient has proteinuria probably diabetic nephropathy and urine microalbuminuria last year therefore patient actually has chronic kidney disease diabetic nephropathy. Baseline creatinine 0.9) 1.68. 06/23: BUN/creatinine is improved. K4.0. 06/24: BUN/creatinine 36/1.19. Magnesium 2.1. 3. Hypertension: Patient blood pressure is controlled. Hold lisinopril. Currently on Lasix drip and metolazone. 4.. Diabetes mellitus type 2: Glucose 116. Accu-Chek essentials and cover with Humalog sliding scale. A1c 6.1. Accu-Cheks are between 100-130 mg/dL. 4. Obstructive sleep apnea: Patient not using CPAP at home because of the mask/claustrophobia. CPAP ordered. Patient was encouraged to follow-up in pulmonary clinic for the sleep study titration and nasal CPAP. VTE prophylaxis, moderate risk: Lovenox 40 mg subcu daily. Total time of the visit including total time spent in counseling or coordination of care, (more than 50% of the total time, spent in obtaining medical information from nurses and other ancillary care providers), discussion with the instructor substitute cosmetology and pm head cook, review of labs and imaging and echo is 30 minutes. Inpatient E&M: 82146 Subs Hosp L2
[2020-06-24 16:41] LABS: Bedside Glucose 119 mg/dL (70-110)
[2020-06-24] MEDS: MELATONIN 3 MG TABLET PO (22:54)
[2020-06-24] MEDS: Atorvastatin Calcium 40 MG Tablet PO (22:54)
[2020-06-24 23:11] LABS: Bedside Glucose 120 mg/dL (70-110)
[2020-06-25] VITALS (22 sets, daily range): BP systolic 107–146; BP diastolic 64–102; PULSE 76–106; RESP 11–21; TEMP 36.4–37.1; O2SAT 91–99
[2020-06-25] MEDS: Aspirin 81 MG TAB.CHEW PO (05:23)
--- NOTE | 2020-06-25 05:55 | EKG12_ITS ---
Test Reason : AM EKG Blood Pressure : / mmHG Vent. Rate : 087 BPM Atrial Rate : 087 BPM P-R Int : 186 ms QRS Dur : 104 ms QT Int : 404 ms P-R-T Axes : 073 095 062 degrees QTc Int : 486 ms Normal sinus rhythm Prolonged QT Abnormal ECG When compared with ECG of 22-JUN-2020 05:53, MANUAL COMPARISON REQUIRED, DATA IS UNCONFIRMED Confirmed by TERRY HUERTA, JULIANA ([id number]), newspaper or periodical editor CLAUDIA WARNER ([id number]) on 06/27/2020 11:21:59 AM Referred By: DR OQUENDO Confirmed By:SAMIA STEWART MD
[2020-06-25] MEDS: Metoprolol Tartrate 25 MG Tablet PO ×2 (06:25→22:35)
[2020-06-25 06:36] LABS: Bedside Glucose 120 mg/dL (70-110)
[2020-06-25 07:13] LABS: BUN 29 mg/dL (7-18); BUN/Creat Ratio 24.6 RATIO (10-20); Calcium,Total 9.6 mg/dL (8.5-10.1); Carbon Dioxide > 45.0 mmol/L (21.0-32.0); Chloride 80 mmol/L (98-107); Creatinine, Serum 1.18 mg/dL (0.70-1.30); EST Glomerular Filtration Rate 69 mL/min (>60); Est Glom Filt Rate - Afr Amer 84 mL/min (>60); Estimated Creatinine Clearance 79.77 ml/min; Glucose 116 mg/dL (74-106); Magnesium 2.1 mg/dL (1.6-2.6); Potassium 3.4 mmol/L (3.5-5.1); Sodium Level 131 mmol/L (136-145)
[2020-06-25] MEDS: 0.9% Saline Lock 10 ML Syringe IV (09:34)
--- NOTE | 2020-06-25 09:38 | NURSING ---
Report called to Melissa in Attorney Law Clerk
--- NOTE | 2020-06-25 11:15 | EKG12_ITS ---
Test Reason : Blood Pressure : / mmHG Vent. Rate : 094 BPM Atrial Rate : 094 BPM P-R Int : 190 ms QRS Dur : 106 ms QT Int : 392 ms P-R-T Axes : 060 063 048 degrees QTc Int : 490 ms Normal sinus rhythm Prolonged QT Poor R wave progression Nonspecific T wave abnormality Abnormal ECG Confirmed by NAZARIO HUERTA, SAPNA ([id number]), video effects editor CLAUDIA WARNER ([id number]) on 06/28/2020 10:24:26 AM Referred By: TERRY Confirmed By:SAPNA LANGE MD
--- NOTE | 2020-06-25 11:17 | CL.I_ITS ---
Patient Name: DAWIT MARTINEZ Study Date: 06/25/2020 Performing: Mikaela Metzger MD Ht: 71 inches 180 cm : 1970 Wt: 260.5 lbs 118 kg Age: 49 Gender: male BSA: 2.35 PROCEDURE(S) PERFORMED LE38-XSL/COR [id number] W OR WO PTCA, SINGLE CORONARY ARTERY CLINICAL PROFILE AND CO-MORBIDITIES Indications: Cardiomyopathy Heart Failure: NYHA Class: 3, Newly Diagnosed: Yes, Heart Failure Type: Systolic Stress/Imaging Stress/Image Study Performed: No CAD Presentations: Other: chf CONCLUSIONS Single vessel CAD as described. No significant . Successful PCI of OM2 with SYED RECOMMENDATIONS ASA Travonefmatthew Hurtado for at least 12 months Follow up with primary enamel finisher DESCRIPTION OF PROCEDURE The patient arrived to the procedure lab. The risks and benefits of the procedure as well as a full d escription of our services here and lack of surgical backup were fully explained to the patient and/o r their significant other prior to the catheterization. The Timeout was completed, verifying the mk ect patient and procedure. The patient's procedural site was prepped and draped in the usual fashion. Local anesthetic was given subcutaneously to right radial region with Lidocaine 2%. Using a modified Seldinger technique, arterial access was obtained via the right radial artery, a 6Fr sheath was inse rted.. Left Coronary Artery selective angiography was performed in multiple views using a 5 Fr. JL3. 5 catheter. LV to AO pullback pressures were then recorded. Right Coronary Artery selective angiograp hy was then performed in multiple views using a 5 Fr. JR 4 catheterThe images were reviewed and optio ns discussed. A decision was then made to proceed with an Intervention, IVUS or other adjunct procedure. XB 3.5 Guide catheter was inserted and engaged into the LCA. [employer] [place] Guide wire was advance d to the 2nd OM. Emerge 3.0 x 12 Balloon catheter was inserted. Balloon catheter was advanced across lesion in the second obtuse marginal, proximal PTCA balloon inflated at 8 atms for 30 secs. PTCA ball oon inflated at 8 atms for 14 secs. PTCA balloon inflated at 6 atms for 15 secs. Angiogram performed post balloon dilatation. Synergy 4.0 x 24 Drug Eluting stent was inserted. Drug Eluting stent was rem su intact, failed to cross lesion NC Emerge 3.5 x 15 Balloon catheter was inserted. Balloon cathete r was advanced across lesion in the second obtuse marginal, proximal PTCA balloon inflated at 12 atms for 11 secs. PTCA balloon inflated at 12 atms for 18 secs. PTCA balloon inflated at 12 atms for 11 s ecs. Synergy 4.0x 24 Drug Eluting stent was inserted. Drug Eluting stent was advanced across the lesi on in the second obtuse marginal, proximal Angiogram performed post stent deployment. The arterial sheath was pulled and a TR Band was applied for hemostasis CORONARY ANGIOGRAPHY DOMINANCE: Right Dominant LEFT MAIN: No significant disease noted LEFT ANTERIOR DESCENDING ARTERY: Mild luminal irregularities CIRCUMFLEX ARTERY: Mild luminal irregularities OM 1: Proximal - 30 % Stenosis OM 2: Proximal - 90 % Stenosis RIGHT CORONARY ARTERY: Mild luminal irregularities INTERVENTION INFORMATION LESION SITE: 2nd OM (Proximal) Lesion Complexity: High/C, chronic total occlusion: No, lesion at bifurcation: Yes, thrombus present: No, lesion length: 22 mm, culprit lesion: Yes, Previously treated lesion: No Pre Stenosis: 90 % Pre intervention NORI flow: 3 PROCEDURE: Drug Eluting Stent with pre dilatation. Post Stenosis: 0 % Post intervention NORI flow: 3 Lesion Devices: Cardinal 6 Fr XB3.5 100cm Guide Catheter Garner .014 [employer] [place] Straight 190cm Kel Sci EMERGE MR 3.00x12 BALLOON Kel Sci Synergy MR SYED 4.00x24 Kel Sci NC EMERGE MR 3.50x15 BALLOON COMPLICATIONS No Complications PROCEDURE MEDICATIONS Fentanyl 50 mcg IV Versed 1 mg IV Fentanyl 50 mcg IV Oxygen: 2 L/min via nasal cannula Brilinta 180 mg PO @ 06/25/2020 10:51:26 Heparin given IA 06/25/2020 10:07:44 Heparin 6000 unit(s) IV 06/25/2020 10:21:32 Verapamil 2.5mg, Ntg 100mcgs, 3000 units of Heparin given IA 06/25/2020 10:07:44 IV Bolus: .9 NaCl 200 ml total 06/25/2020 10:57:11 SUMMARY OF HEMODYNAMIC DATA Time AIR REST ECG 09:48:11 LV 123/1, 36 10:11:23 AO 111/81 (95) SA 10:11:35 LV 119/9, 26 10:22:21 LV 114/8, 30 10:22:28 LVp 117/13, 34 10:22:36 AO 112/83 (98) 10:22:41 Signed By Mikaela Metzger MD On 06/25/2020 11:17:02 Mikaela Metzger MD
[2020-06-25 11:30] LABS: Bedside Glucose 136 mg/dL (70-110)
[2020-06-25] MEDS: 0.9% Normal Saline 1,000 ML 60 ML IV (11:53)
--- NOTE | 2020-06-25 12:52 | PCM.PN.REN ---
Patient Problems: Active and Suspected Problems Lower extremity edema (Acute) LIZY (acute kidney injury) (Acute) Subjective: no sob no cp - Physical Exam Vitals/I&O's: Vital Signs Temp Pulse Resp BP Pulse Ox 98.1 F 98 12 146/102 H 95 06/25/20 11:30 06/25/20 12:30 06/25/20 12:30 06/25/20 12:30 06/25/20 12:30 Oxygen Flow Rate (L/min) 2 Oxygen Delivery Method Room Air Weight: 118.3 kg Body Mass Index (BMI) 41.1 Intake and Output for Last 24 Hours 06/23/20 06/24/20 06/25/20 23:59 23:59 23:59 Intake Total 1476.73 / 1476.73 1333.38 / 1333.38 Output Total 9025 / 9025 9600 / 9600 1400 / 1400 Balance -7548.27 / -7548.27 -8266.62 / -8266.62 -1380 / -1380 General: Alert, Cooperative HEENT: Atraumatic, Normocephalic Neck: Supple Lungs: Clear to auscultation, Normal air movement Cardiovascular: Regular rate, Regular Rhythm, Normal S1, Normal S2 Abdomen: Bowel Sounds Present, Soft, Non Tender, Obese Extremities: No edema Skin: No rashes Psych/Mental Status: Appropriate Laboratory Results 06/24/20 16:30: POC Glucose 119 H 06/24/20 22:56: POC Glucose 120 H 06/25/20 05:56: Sodium 131 L, Potassium 3.4 L, Chloride 80 L, Carbon Dioxide > 45.0 H*, Anion Gap TNP, BUN 29 H, Creatinine 1.18, Estim Creat Clear Calc 79.77, Est GFR (MDRD) Af Amer 84, Est GFR (MDRD) Non-Af 69, BUN/Creatinine Ratio 24.6 H, Glucose 116 H, Calcium 9.6, Magnesium 2.1 06/25/20 06:30: POC Glucose 120 H 06/25/20 11:26: POC Glucose 136 H Current Medications Acetaminophen (Tylenol) 650 mg PO Q6H PRN PRN PRN Reason: Pain Score 1-10/Temp > 100.7 F Last Admin: 06/22/20 18:20 Dose: 650 mg Documented by: Al Hydroxide/Mg Hydroxide (Mylanta Ii) 30 ml PO Q6H PRN PRN PRN Reason: Gastric Burning Albuterol Sulfate (Ventolin Aerosols) 2.5 mg INHALATION Q2H PRN PRN PRN Reason: SOB/Wheezing Aspirin (Aspirin, Baby) 81 mg PO DAILY@0800 [facility] Last Admin: 06/25/20 05:23 Dose: 81 mg Documented by: Atorvastatin Calcium (Lipitor) 40 mg PO QHS [facility] Last Admin: 06/24/20 22:54 Dose: 40 mg Documented by: Atropine Sulfate () 0.5 mg IV UD PRN PRN Reason: HR <50 bpm Dextrose (D50w Syringe) 0 gm IV X1 PRN; Protocol PRN Reason: Hypoglycemia Enoxaparin Sodium (Lovenox) 40 mg SC DAILY [facility] Last Admin: 06/25/20 09:33 Dose: Not Given Documented by: Furosemide (Lasix) 80 mg IV BID@1000,1800 [facility] Last Admin: 06/24/20 17:26 Dose: 80 mg Documented by: Glucagon () 1 mg IM .X1 PRN PRN Reason: Hypoglycemia Heparin Sodium (Beef Lung) (Heparin 500 Unit/5 Ml (100/Ml)) 500 unit IV UD PRN PRN Reason: HEPARIN FLUSH Sodium Chloride () 1,000 mls @ 0 mls/hr IV .Q0M CADENCE Sodium Chloride () 1,000 mls @ 60 mls/hr IV .[id number] [facility] Stop: 06/25/20 16:49 Last Admin: 06/25/20 11:53 Dose: 60 mls/hr Documented by: Insulin Human Lispro (Humalog Oly (Bkc)) 0 unit SC ACHS [facility]; Protocol Last Admin: 06/25/20 12:03 Dose: Not Given Documented by: Labetalol HCl (Trandate) 5 mg IV X1 PRN PRN Reason: SBP >160 when pulling sheath Stop: 06/27/20 11:02 Lidocaine HCl (Xylocaine 2% Jelly) 1 applic TOPICAL Q6H PRN; Protocol PRN Reason: penial pain from catheter Lorazepam (Ativan) 0.5 mg PO Q8H PRN PRN PRN Reason: severe anxiety Last Admin: 06/23/20 21:08 Dose: 0.5 mg Documented by: Melatonin (Melatonin) 3 mg PO QHS [facility] Last Admin: 06/24/20 22:54 Dose: 3 mg Documented by: Metolazone (Zaroxolyn) 5 mg PO DAILY [facility] Last Admin: 06/24/20 08:48 Dose: 5 mg Documented by: Metoprolol Tartrate (Lopressor (Beta Edin)) 25 mg PO BID [facility] Last Admin: 06/25/20 06:25 Dose: 25 mg Documented by: Morphine Sulfate () 2 mg IV Q3H PRN PRN PRN Reason: Pain Score 6-10/10 Nicotine (Nicoderm Cq (Pbkc)) 21 mg TRANSDERM. DAILY [facility] Last Admin: 06/24/20 08:48 Dose: 21 mg Documented by: Oxycodone HCl (Oxyir) 5 mg PO Q4H PRN PRN PRN Reason: Pain Score 4-5/10 Last Admin: 06/23/20 21:08 Dose: 5 mg Documented by: Potassium Chloride (K-Dur) 40 meq PO TID [facility] Last Admin: 06/25/20 05:22 Dose: 40 meq Documented by: Prochlorperazine Edisylate (Compazine Iv) 5 mg IV Q4H PRN PRN PRN Reason: Breakthrough Nausea/Vomiting Last Admin: 06/21/20 14:45 Dose: 5 mg Documented by: Senna/Docusate Sodium (Senokot-S, Karuna-Colace) 2 tablet PO BID PRN PRN PRN Reason: Constipation Last Admin: 06/23/20 21:07 Dose: 2 tablet Documented by: Sodium Chloride () 10 - 40 ml IV UD PRN PRN Reason: SALINE FLUSH Last Admin: 06/25/20 09:34 Dose: 20 ml Documented by: Sodium Chloride () 500 ml IV BOLUS PRN PRN Reason: VASO-VAGAL PROTOCOL Ticagrelor (Brilinta) 90 mg PO BID [facility] Medical Necessity - Tobacco Use Smoking Status: Current every day smoker Tobacco Use: Cigarettes Assessment/Plan All Active Problems Lower extremity edema (Acute) LIZY (acute kidney injury) (Acute) LIZY CRS resolved Metabolic alkalosis with diuresis Hypokalemia with diuresis CHF CAD s/p PCI with stent agree with ivf increase NS to 120 ml/hr post cardiac cath NS for alkalosis reeval tomorrow will likely need acetazolamide. Deescalate diuretics tomorrow. Scr 1.1 avoid nephrotoxins overdiuresis replace K monitor
[2020-06-25] MEDS: LORazepam 0.5 MG Tablet PO (13:15)
[2020-06-25] MEDS: proCHLORPERazine 10 MG/2 ML Vial 5 MG IV (13:22)
[2020-06-25] MEDS: metOLazone 5 MG Tablet PO (13:29)
--- NOTE | 2020-06-25 14:48 | CRPHASE1_ITS ---
Patient Communication Former Patient:: Phase I PHII Cardiac Rehab Discussed with Patient:: Yes Guide to Cardiac Rehab Given to Patient:: Yes Cardiac Rehab Facility Choice List Given to Patient:: Yes Choice Program [facility] CR PHII:: Communication Given to CR Refer Phase II Cardiac Rehab:: Yes Sessions:: 36 sessions - 3 days/wk, 12 weeks Risk Factors/Lifestyle Smoking Status: Current every day smoker Second-Hand Smoke:: No Hx Hypertension: Yes Hx Diabetes Mellitus Type 1: No Hx Diabetes Mellitus Type 2: Yes Hx Metabolic Disorders: No Hx Obesity: Yes Laboratory Values: Cardiac Rehab Phase I Labs Hemoglobin A1c 6.1 % (3.8-5.6) H 06/21/20 06:25 Phase I Education Given On:: [place], Nutrition, Antiplatelet medication, Smoking cessation, Diabetes - Type II Issues Affecting Care:: None Knowledge of Condition:: No Learning Preferences: Verbal, Written Cardiac Rehabilitation Info Cardiac Rehabilitation Program Information: Cardiac Rehabilitation is important for patients like you who are recovering from a heart problem. Cardiac rehabilitation programs are recognized as integral to the continued care of the patient with coronary heart disease. The cardiac rehabilitation program is designed to optimize a patient's physical, psychological, and social functioning. Health direct care counselor work in cardiac rehabilitation programs and assist you with getting the treatments you need to get stronger and healthier - like exercise, healthy eating habits, and medications. Cardiac rehabilitation has been show to help people with heart problems live longer and have better life enjoyment than people who do not go to cardiac rehabilitation. Please contact the Cardiac Rehabilitation Program at [facility] at in two weeks if you have not heard from them.
--- NOTE | 2020-06-25 14:51 | CRPH1.INST_ITS ---
General Education CAD and cardiac anatomy and function:: Patient communicates acknowledgment, Needs reinforcement Explanation of diagnoses and procedures:: Patient communicates acknowledgment, Needs reinforcement Sign/Symptoms of HI:: Patient communicates acknowledgment, Needs reinforcement Antiplatelet therapy: Patient communicates acknowledgment, Needs reinforcement Proper use of NTG-SL: Patient communicates acknowledgment, Needs reinforcement Emergency procedures and activation of EMS: Patient communicates acknowledgment, Needs reinforcement Compliance of all prescribed medications: Patient communicates acknowledgment, Needs reinforcement Smoking Patient Nicotine/Smoking Risk Factors Are:: Cigarettes Recommendations Include:: Smoking cessation strategies/Smoking packet, Second- hand smoke recommendation, Participation in a smoking cessation program Nicotine/Smoking Response Code:: Patient communicates acknowledgment Overweight/Obesity Patient Overweight/Obesity Risk Factors Are:: Obesity - > or = 30 Recommendations Include:: Weight loss of 5-10%, Reduced calorie diet, Exercise 5-7 times/week Overweight/Obesity:: Patient communicates acknowledgment Hypertension Recommendations Include:: Maintain BP <130/85, BP <130/80 if diabetic, DASH dietary guidelines, Decrease/maintain normal body weight, Moderation of ETOH Hypertension:: Patient communicates acknowledgment Diabetes Patient Diabetes Risk Factors Are:: Elevated blood sugars Recommendations Include:: Maintain fasting blood sugars 70-110 md/dL, Maintain HgbA1c of 6% or less, Monitor blood sugar as prescribed, Diabetic dietary guidelines, Decrease/maintain body weight Diabetes:: Patient communicates acknowledgment Sedentary Patient Sedentary Risk Factors Are:: Lack of regular exercise Recommendations Include:: Aerobic exercise 5-7 times/week for 20-30 minutes continuously, Benefits of regular exercise, Discussed home walking program, Monitored Outpatient Cardiac Rehab Sedentary Response Code:: Patient communicates acknowledgment
--- NOTE | 2020-06-25 15:03 | CASEMGMT ---
Per Tesha, PCU charge, pt to need LifeVest at discharge. Call to Serenity at [facility] office at this time and she states she will check into this and call this RN CM back with any info. Leah RN CM
[2020-06-25 16:56] LABS: Bedside Glucose 147 mg/dL (70-110)
--- NOTE | 2020-06-25 17:04 | PCM.PN.BLA ---
Progress Note Life vest order was faxed to [facility]. Pt is aware that this was being ordered. Rep is also aware that this is being ordered. Will await approval. Discussed with Dr. Metzger. STROKE Vital Signs/Narrative: Vital Signs Temp Pulse Resp BP Pulse Ox 06/25/20 15:10 99 06/25/20 15:00 92 06/25/20 14:49 98.1 F 85 12 110/73 99 06/25/20 14:04 106 H 11 L 131/86 H 95
--- NOTE | 2020-06-25 17:28 | PN_ITS ---
Patient Problems: Active and Suspected Problems History of coronary artery stent placement (Acute 06/25/20) 4.00 x 24 mm Synergy MR SYED to OM2 06/25/20 Lower extremity edema (Acute) LIZY (acute kidney injury) (Acute) Reason for Visit: Follow-up for acute heart failure Objective: Patient is well diuresed. Heart rate and blood pressure are controlled. Patient had a heart catheter today. Physical exam General: Alert, Oriented x3, Cooperative HEENT: Atraumatic, PERRLA, EOMI, Normocephalic Oral: No Gingival or Mucosal Lesions/ Ulcerations Neck: Supple, No JVD, Negative Carotid Bruits Lungs: Air entry diminished in bilateral lung bases. Bilateral occasional rales. Cardiovascular: Regular rate, Regular Rhythm, Normal S1, Normal S2, No murmurs. Occasional PVCs. Orthopnea absent. Abdomen: Bowel Sounds Present, Soft, Non Tender, : No renal angle tenderness. No suprapubic tenderness. Extremities: Bilateral lower extremity edema, improved. Capillary Refill Less than 3 Seconds. Heart cath revealed radial artery approach. Skin: No rashes, No breakdown Musculoskeletal: No Tenderness to Palpation of Joints or Extremities Neurological: Cranial nerves II-XII grossly intact, Deep Tendon Reflexes 2+/4 and Symmetrical, Neuro grossly intact Psych/Mental Status: Normal Affect, Appropriate. Vitals/I&O's: Vital Signs Temp Pulse Resp BP Pulse Ox 98.1 F 92 12 110/73 99 06/25/20 14:49 06/25/20 15:00 06/25/20 14:49 06/25/20 14:49 06/25/20 15:10 Oxygen Flow Rate (L/min) 2 Oxygen Delivery Method Room Air Weight: 260 lb 12.909 oz Body Mass Index (BMI) 41.1 Intake and Output for Last 24 Hours 06/23/20 06/24/20 06/25/20 23:59 23:59 23:59 Intake Total 1476.73 / 1476.73 1333.38 / 1333.38 82 / 82 Output Total 9025 / 9025 9600 / 9600 1400 / 1400 Balance -7548.27 / -7548.27 -8266.62 / -8266.62 -1318 / -1318 Laboratory Results 06/24/20 22:56: POC Glucose 120 H 06/25/20 05:56: Sodium 131 L, Potassium 3.4 L, Chloride 80 L, Carbon Dioxide > 45.0 H*, Anion Gap TNP, BUN 29 H, Creatinine 1.18, Estim Creat Clear Calc 79.77, Est GFR (MDRD) Af Amer 84, Est GFR (MDRD) Non-Af 69, BUN/Creatinine Ratio 24.6 H , Glucose 116 H, Calcium 9.6, Magnesium 2.1 06/25/20 06:30: POC Glucose 120 H 06/25/20 11:26: POC Glucose 136 H 06/25/20 16:52: POC Glucose 147 H Current Medications Acetaminophen (Tylenol) 650 mg PO Q6H PRN PRN PRN Reason: Pain Score 1-10/Temp > 100.7 F Last Admin: 06/22/20 18:20 Dose: 650 mg Documented by: Al Hydroxide/Mg Hydroxide (Mylanta Ii) 30 ml PO Q6H PRN PRN PRN Reason: Gastric Burning Albuterol Sulfate (Ventolin Aerosols) 2.5 mg INHALATION Q2H PRN PRN PRN Reason: SOB/Wheezing Aspirin (Aspirin, Baby) 81 mg PO DAILY@0800 [facility] BEDS AT [facility] Last Admin: 06/25/20 05:23 Dose: 81 mg Documented by: Atorvastatin Calcium (Lipitor) 40 mg PO QHS [facility]S [facility]CLUDE 234 BEDS AT THE [facility] Last Admin: 06/24/20 22:54 Dose: 40 mg Documented by: Atropine Sulfate () 0.5 mg IV UD PRN PRN Reason: HR <50 bpm Dextrose (D50w Syringe) 0 gm IV X1 PRN; Protocol PRN Reason: Hypoglycemia Enoxaparin Sodium (Lovenox) 40 mg SC DAILY [facility]S [facility] 234 BEDS AT [facility] Last Admin: 06/25/20 09:33 Dose: Not Given Documented by: Furosemide (Lasix) 80 mg IV BID@1000,1800 [facility]S [facility]CLUDE 234 BEDS AT [facility] Last Admin: 06/25/20 14:09 Dose: Not Given Documented by: Glucagon () 1 mg IM .X1 PRN PRN Reason: Hypoglycemia Heparin Sodium (Beef Lung) (Heparin 500 Unit/5 Ml (100/Ml)) 500 unit IV UD PRN PRN Reason: HEPARIN FLUSH Sodium Chloride () 1,000 mls @ 0 mls/hr IV .Q0M COUNTS INCLUDE 234 BEDS AT THE [facility] Sodium Chloride () 1,000 mls @ 120 mls/hr IV .Q8H20M COUNTS INCLUDE 234 BEDS AT THE [facility] Stop: 06/25/20 21:00 Last Infusion: 06/25/20 12:55 Dose: 120 mls/hr Documented by: Insulin Human Lispro (Humalog Kwikpen (Bkc)) 0 unit SC ACHS [facility] 234 BEDS AT [facility]; Protocol Last Admin: 06/25/20 17:04 Dose: Not Given Documented by: Labetalol HCl (Trandate) 5 mg IV X1 PRN PRN Reason: SBP >160 when pulling sheath Stop: 06/27/20 11:02 Lidocaine HCl (Xylocaine 2% Jelly) 1 applic TOPICAL Q6H PRN; Protocol PRN Reason: penial pain from catheter Lorazepam (Ativan) 0.5 mg PO Q8H PRN PRN PRN Reason: severe anxiety Last Admin: 06/25/20 13:15 Dose: 0.5 mg Documented by: Melatonin (Melatonin) 3 mg PO QHS [facility]S [facility] 234 BEDS AT [facility] Last Admin: 06/24/20 22:54 Dose: 3 mg Documented by: Metolazone (Zaroxolyn) 5 mg PO DAILY [facility]S [facility]CLUDE 234 BEDS AT [facility] Last Admin: 06/25/20 13:29 Dose: 5 mg Documented by: Metoprolol Tartrate (Lopressor (Beta Edin)) 25 mg PO BID [facility]S [facility]CLUDE 234 BEDS AT [facility] Last Admin: 06/25/20 06:25 Dose: 25 mg Documented by: Morphine Sulfate () 2 mg IV Q3H PRN PRN PRN Reason: Pain Score 6-10/10 Nicotine (Nicoderm Cq (Pbkc)) 21 mg TRANSDERM. DAILY [facility]S [facility]CLUDE 234 BEDS AT [facility] Last Admin: 06/25/20 13:29 Dose: 21 mg Documented by: Oxycodone HCl (Oxyir) 5 mg PO Q4H PRN PRN PRN Reason: Pain Score 4-5/10 Last Admin: 06/23/20 21:08 Dose: 5 mg Documented by: Potassium Chloride (K-Dur) 40 meq PO TID [facility]S [facility]CLUDE 234 BEDS AT [facility] Last Admin: 06/25/20 15:06 Dose: 40 meq Documented by: Prochlorperazine Edisylate (Compazine Iv) 5 mg IV Q4H PRN PRN PRN Reason: Breakthrough Nausea/Vomiting Last Admin: 06/25/20 13:22 Dose: 5 mg Documented by: Senna/Docusate Sodium (Senokot-S, Karuna-Colace) 2 tablet PO BID PRN PRN PRN Reason: Constipation Last Admin: 06/23/20 21:07 Dose: 2 tablet Documented by: Sodium Chloride () 10 - 40 ml IV UD PRN PRN Reason: SALINE FLUSH Last Admin: 06/25/20 09:34 Dose: 20 ml Documented by: Sodium Chloride () 500 ml IV BOLUS PRN PRN Reason: VASO-VAGAL PROTOCOL Ticagrelor (Brilinta) 90 mg PO BID [facility] STROKE Vital Signs/Narrative: Vital Signs Temp Pulse Resp BP Pulse Ox 06/25/20 15:10 99 06/25/20 15:00 92 06/25/20 14:49 98.1 F 85 12 110/73 99 06/25/20 14:04 106 H 11 L 131/86 H 95 Medical Necessity - Tobacco Use Smoking Status: Current every day smoker Tobacco Use: Cigarettes Assessment/Plan All Active Problems History of coronary artery stent placement (Acute 06/25/20) Lower extremity edema (Acute) LIZY (acute kidney injury) (Acute) The patient is a 49 year old M with history of type 2 diabetes mellitus and hypertension came to ED with bilateral lower extremity edema and increasing abdominal girth for 2 to 3 weeks, consistent with new onset CHF Chest x-ray individually reviewed and shows mild interstitial edema and moderate cardiac enlargement. EKG sinus tachycardia with PVCs at 119 bpm, low voltage QRS. No previous EKG, echo or admission in our hospital 1. 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 Heart failure core measures at this time energy, fluid restriction, intake and output and 2 g sodium diet. 06/21: 2D echo reviewed with the drafter plumbing, Dr. Metzger. EF 15%, stage I diastolic dysfunction with trivial MR. Severe global hypokinesis of LV. Cardiology consult. 06/22: Patient on Lasix drip. Baker catheterization for strict intake and output and patient is in LIZY. Cardiac cath canceled as patient creatinine went up. 06/23: Continue Lasix drip. Zaroxolyn was added by comfort advisor. Had good 2 L urine output in last 24 hours with -1 L fluid balance. Shortness of breath is much improved. Broadband Engineer recommended cardiac cath during this hospital stay and vest at the time of discharge 06/24: Lasix changed to 80 mg IV twice daily. Continue metolazone. Severe hypokalemic alkalosis. On K. Dur 40 mEq 3 times daily. Patient had 5 pounds weight loss and -11 L fluid loss 05/26: Patient had cardiac cath today which showed 90% restenosis in OM 2 and a stent placement. Had good diuresis about 9.6 L. Negative fluid balance of about -17 L. Hold Lasix. Product Safety Officer recommended normocytic 120 mils per hour. 2. Acute kidney injury on CKD stage III, diabetic nephropathy/proteinuria most probably secondary to cardiorenal disease/heart failure with mild hyperkalemia: Nephrology consult reviewed. Patient has proteinuria probably diabetic nephropathy and urine microalbuminuria last year therefore patient actually has chronic kidney disease diabetic nephropathy. Baseline creatinine 0.9) 1.68. 06/23: BUN/creatinine is improved. K4.0. 06/24: BUN/creatinine 36/1.19. Magnesium 2.1. 06/25: BUN/creatinine 29/1.18. K3.4. On cholecalciferol 40 M EQ 3 times daily. 3. Hypertension: Patient blood pressure is controlled. Hold lisinopril. Currently on Lasix drip and metolazone. 4.. Diabetes mellitus type 2: Glucose 116. Accu-Chek essentials and cover with Humalog sliding scale. A1c 6.1. Accu-Cheks are between 100-130 mg/dL. 4. Obstructive sleep apnea: Patient not using CPAP at home because of the mask/claustrophobia. CPAP ordered. Patient was encouraged to follow-up in pulmonary clinic for the sleep study titration and nasal CPAP. VTE prophylaxis, moderate risk: Lovenox 40 mg subcu daily. Total time of the visit including total time spent in counseling or coordination of care, (more than 50% of the total time, spent in obtaining medical information from nurses and other ancillary care providers), discussion with the drafter plumbing and comfort advisor, review of labs and imaging and echo is 30 minutes. Inpatient E&M: 47789 Subs Hosp L2
[2020-06-25] MEDS: TICAGRELOR 90 MG TABLET PO (22:34)
[2020-06-25] MEDS: Atorvastatin Calcium 40 MG Tablet PO (22:35)
[2020-06-25] MEDS: MELATONIN 3 MG TABLET PO (22:35)
[2020-06-25 22:41] LABS: Bedside Glucose 139 mg/dL (70-110)
[2020-06-26] VITALS (9 sets, daily range): BP systolic 103–116; BP diastolic 60–74; PULSE 95–109; RESP 17–18; TEMP 36.3–37.1; O2SAT 95–98
[2020-06-26 06:54] LABS: Absolute Lymphocyte Count 1.39 X10^3/uL (0.83-4.51); Absolute Neutrophil Count 15.4 X10^3/uL (2.0-7.7); Basophil# 0.06 X10^3/uL; Basophil% 0.3 % (0-1); Eosinophil# 0.02 X10^3/uL; Eosinophils% 0.1 % (0-5); Hematocrit 46.6 % (40-54); Hemoglobin 14.4 g/dL (13.0-16.5); Lymphocyte # 1.39 X10^3/ul (4.0); Lymphocyte % 7.4 % (19-41); Mean Corp Hgb Conc 30.9 g/dL (32-36); Mean Corpuscular Hgb 28.3 pg (27.0-32.0); Mean Corpuscular Volume 91.7 fL (80-94); Monocyte# 1.93 X10^3/uL; Monocyte% 10.2 % (0-10); NRBC Flagged by Analyzer 0 % (0-5); Neutrophil # 15.41 X10^3/uL (2.7-7.7); Neutrophil % 81.5 % (47-70); POSITIVE DIFFERENTIAL YES; Platelet Count 258 K/mm3 (150-450); RBC Distribution Width SD 50.2 fl (35.1-43.9); Red Blood Count 5.08 M/mm3 (4.6-6.2); White Blood Count 18.9 K/mm3 (4.4-11.0)
[2020-06-26 06:58] LABS: Differential Indicated SCAN CRITERIA MET
[2020-06-26 07:39] LABS: ALB/GLOB Ratio 0.7 RATIO (0.9-2.4); AST(SGOT) 20 U/L (15-37); Alanine Aminotransfer ALT/SGPT 30 U/L (16-61); Albumin, Serum 3.3 g/dL (3.2-5.0); Alkaline Phosphatase 85 U/L (45-117); Anion Gap 7 (5-15); BUN 22 mg/dL (7-18); BUN/Creat Ratio 21.4 RATIO (10-20); Calcium,Total 9.7 mg/dL (8.5-10.1); Chloride 89 mmol/L (98-107); Creatinine, Serum 1.03 mg/dL (0.70-1.30); EST Glomerular Filtration Rate 81 mL/min (>60); Est Glom Filt Rate - Afr Amer 98 mL/min (>60); Estimated Creatinine Clearance 91.38 ml/min; Globulin 4.5 g/dL (2.2-4.2); Glucose 118 mg/dL (74-106); Magnesium 1.8 mg/dL (1.6-2.6); Potassium 3.6 mmol/L (3.5-5.1); Protein, Total 7.8 g/dL (6.4-8.2); Sodium Level 129 mmol/L (136-145)
[2020-06-26 07:42] LABS: Bedside Glucose 139 mg/dL (70-110)
[2020-06-26] MEDS: Aspirin 81 MG TAB.CHEW PO (08:48)
[2020-06-26] MEDS: TICAGRELOR 90 MG TABLET PO (08:48)
[2020-06-26] MEDS: metOLazone 5 MG Tablet PO (08:49)
[2020-06-26] MEDS: Metoprolol Tartrate 25 MG Tablet PO (08:49)
--- NOTE | 2020-06-26 09:45 | CASEMGMT ---
Per Shae PETER, the [facility] rep will be in to see pt this am. CM to follow. Leah BASILIO CM
--- NOTE | 2020-06-26 10:00 | EKG12_ITS ---
Test Reason : AM EKG Blood Pressure : / mmHG Vent. Rate : 099 BPM Atrial Rate : 099 BPM P-R Int : 178 ms QRS Dur : 098 ms QT Int : 380 ms P-R-T Axes : 069 076 059 degrees QTc Int : 487 ms Normal sinus rhythm Prolonged QT Abnormal ECG When compared with ECG of 25-JUN-2020 11:20, MANUAL COMPARISON REQUIRED, DATA IS UNCONFIRMED Confirmed by TERRY HUERTA, JULIANA ([id number]), city editor CLAUDIA WARNER ([id number]) on 06/27/2020 11:31:26 AM Referred By: DR OQUENDO Confirmed By:SAMIA STEWART MD
[2020-06-26] MEDS: Insulin Lispro 100 UNIT/ML INSULN.PEN SC (11:17)
[2020-06-26] MEDS: Enoxaparin 40 MG/0.4 ML Syringe SC (11:17)
--- NOTE | 2020-06-26 11:21 | CASEMGMT ---
SW checked in with patient and his . Introduced self and role at [facility]. SW mentioned that last week he had expressed interest in completing a Healthcare Power of Commercial Litigation Paralegal and a Healthcare Living Will. He told SW they already took care of that. He said he is not going to be able to work for a little bit and asked about short term disability. COREY told him to check with his employer and then Social Security would be the next step. Leticia MCKOY MSW
--- NOTE | 2020-06-26 11:25 | DCINST_ITS ---
- Discharge Diagnoses Current Active Problems: Current Active and Chronic Problems Lower extremity edema (Acute) Diabetes mellitus type 2 in obese (Chronic) Hypertension (Chronic) Sleep apnea (Chronic) LIZY (acute kidney injury) (Acute) You will use the following diet at home:: Calorie/Carbohydrate Controlled (specify 1200, 1400, etc) - 1800 ADA diet, Cardiac Your food should be the consistency of: Regular Discharge Activity: May Not Drive Weight Bearing Status: Weight bearing as tolerated Call your doctor if you observe: Fever of 101 or Higher, Coldness, Increased Pain, Numbness or Tingling, Change in Color, Inability to urinate, Inability to have a bowel movement, Shortness of breath, Dizziness, Fainting spells, Swelling in the ankles, Prolonged hiccoughing, Increased palpitations (irregular heartbeat), Calf discomfort, Uncontrolled pain Additional Instructions: Patient blood pressure is on the lower side, systolic 100. Currently not candidate for CARMENCITA or arm for low blood pressure but may be considered in future. his home medication lisinopril?HCTZ 20-12.5 mg was discontinued during hospital stay. Allergies/Adverse Reactions: Allergies No Known Allergies Allergy (Verified 06/20/20 08:47) Medications to take at Discharge Aspirin [Aspirin, Baby] 81 mg PO DAILY@0800 #30 tab.chew 06/26/20 Atorvastatin Calcium [Lipitor] 40 mg PO QHS #30 tablet 06/26/20 Metoprolol Tartrate [Lopressor (beta estephania)] 25 mg PO BID #60 tablet 06/26/20 Nicotine [Nicoderm Cq] 21 mg TRANSDERM. DAILY #30 patch 06/26/20 Potassium Chloride [K-Dur] 40 meq PO DAILY #60 tablet 06/26/20 Ticagrelor [Brilinta] 90 mg PO BID #60 tablet 06/26/20 Torsemide 20 mg PO BID #60 tablet 06/26/20 metFORMIN HCl [Glucophage] 1,000 mg PO BIDCM #0 06/26/20 The following prescriptions were given: Aspirin [Aspirin, Baby] 81 mg PO DAILY@0800 #30 tab.chew Ticagrelor [Brilinta] 90 mg PO BID #60 tablet Potassium Chloride [K-Dur] 40 meq PO DAILY #60 tablet Atorvastatin Calcium [Lipitor] 40 mg PO QHS #30 tablet Metoprolol Tartrate [Lopressor (beta estephania)] 25 mg PO BID #60 tablet Nicotine [Nicoderm Cq] 21 mg TRANSDERM. DAILY #30 patch Torsemide 20 mg PO BID #60 tablet Primary Care Physician: Giuliano Jennings MD [Primary Care Provider] - Please follow up with your Primary Care Physician in: in 1 week with BMP Test Results: Test results from this visit will be discussed in further detail at your follow- up appointment, if applicable. Please Follow Up With: Shae Medrano, PA Please Follow Up With: Ramses Clinton MD When: in 1-2 weeks for diuretics Please Follow Up With: Brigitte Metzger MD When: in 4 weeks
--- NOTE | 2020-06-26 11:29 | PCM.DC.SUM ---
Discharge Date and Diagnosis - Problem List Patient Problems: Active and Suspected Problems Lower extremity edema (Acute) LIZY (acute kidney injury) (Acute) Date of Admission: 06/20/20 Date of Discharge: 06/26/20 - Primary Discharge Diagnosis Acute Problems: Active Problems Lower extremity edema (Acute) LIZY (acute kidney injury) (Acute) - Secondary Discharge Diagnosis Chronic Problems: Chronic Problems Diabetes mellitus type 2 in obese (Chronic) Hypertension (Chronic) Sleep apnea (Chronic) Hospital Course and Treatment Summary of Care Provided: The patient is a 49 year old M with history of type 2 diabetes mellitus and hypertension came to ED with bilateral lower extremity edema and increasing abdominal girth for 2 to 3 weeks, consistent with new onset CHF Chest x-ray individually reviewed and shows mild interstitial edema and moderate cardiac enlargement. EKG sinus tachycardia with PVCs at 119 bpm, low voltage QRS. No previous EKG, echo or admission in our hospital 1. 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 Heart failure core measures at this time energy, fluid restriction, intake and output and 2 g sodium diet. 2D echo reported EF 15%, stage I diastolic dysfunction with trivial MR. Severe global hypokinesis of LV. Online Marketing Specialist was consulted but patient needed aggressive diuresis on Lasix drip. Truck Packer was consulted and Zaroxolyn was added. Patient had good diuresis after that had cardiac cath which showed 90% stenosis of OM 2 and a stent was placed. Patient has good diuresis of about -17.5 L. Patient also had hypokalemic metabolic alkalosis which is getting better after discontinuation of Zaroxolyn. Potassium replaced. 2. Acute kidney injury on CKD stage III, diabetic nephropathy/proteinuria most probably secondary to cardiorenal disease/heart failure with mild hyperkalemia: Nephrology consult reviewed. Patient has proteinuria probably diabetic nephropathy and urine microalbuminuria last year therefore patient actually has chronic kidney disease diabetic nephropathy. Baseline creatinine 0.99 LIZY resolved. BUN/creatinine 22/1.03 on the day of discharge. 3. Hypertension: Patient blood pressure is controlled. Hold lisinopril. Blood pressure is low secondary to severe heart failure and is not candidate for lisinopril because of worsening renal function at this time but may be considered as an outpatient 4.. Diabetes mellitus type 2: Glucose 116. Accu-Chek essentials and cover with Humalog sliding scale. A1c 6.1. Accu-Cheks are between 100-130 mg/dL. 4. Obstructive sleep apnea: Patient not using CPAP at home because of the mask/claustrophobia. CPAP ordered. Patient was encouraged to follow-up in pulmonary clinic for the sleep study titration and nasal CPAP. VTE prophylaxis, moderate risk: Lovenox 40 mg subcu daily.[] Discharge medication reconciliation done. Discharge follow-up instructions completed. Discharge process discussed with the patient and all questions were answered to patient's satisfaction. Total time spent, exact 35 minutes on discharge meds reconciliation, examination, coordination of care with nurses and ancillary staff, review of imaging and blood test and discussion with the patient on follow-up instructions Patient Problems: Active and Suspected Problems Lower extremity edema (Acute) LIZY (acute kidney injury) (Acute) Objective: Seen and examined. Vitals are controlled. Systolic blood pressure in 100. Heart rate is controlled. Patient does not require oxygen on ambulation. 97% ambulating on room air. Physical exam General: Alert, Oriented x3, Cooperative HEENT: Atraumatic, PERRLA, EOMI, Normocephalic Oral: No Gingival or Mucosal Lesions/ Ulcerations Neck: Supple, No JVD, Negative Carotid Bruits Lungs: Air entry diminished in bilateral lung bases. Lungs are clear. No hypoxia or tachypnea. Cardiovascular: Regular rate, Regular Rhythm, Normal S1, Normal S2, No murmurs. Occasional PVCs. Orthopnea absent. Abdomen: Bowel Sounds Present, Soft, Non Tender, : No renal angle tenderness. No suprapubic tenderness. Extremities: Bilateral lower extremity edema, improved. Capillary Refill Less than 3 Seconds. Heart cath revealed radial artery approach. Skin: No rashes, No breakdown Musculoskeletal: No Tenderness to Palpation of Joints or Extremities Neurological: Cranial nerves II-XII grossly intact, Deep Tendon Reflexes 2+/4 and Symmetrical, Neuro grossly intact Psych/Mental Status: Normal Affect, Appropriate. - Physical Exam Vitals/I&O's: Vital Signs Temp Pulse Resp BP Pulse Ox 98.7 F 109 H 18 103/60 96 06/26/20 08:45 06/26/20 08:49 06/26/20 08:45 06/26/20 08:49 06/26/20 08:45 Oxygen Flow Rate (L/min) 2 Oxygen Delivery Method Room Air Weight: 253 lb 4.978 oz Body Mass Index (BMI) 41.1 Intake and Output for Last 24 Hours 06/24/20 06/25/20 06/26/20 23:59 23:59 23:59 Intake Total 1333.38 / 1333.38 1640 / 1640 200 / 200 Output Total 9600 / 9600 2875 / 2875 400 / 400 Balance -8266.62 / -8266.62 -1235 / -1235 -200 / -200 Laboratory Results 06/25/20 11:26: POC Glucose 136 H 06/25/20 16:52: POC Glucose 147 H 06/25/20 22:33: POC Glucose 139 H 06/26/20 05:35: Sodium 129 L, Potassium 3.6, Chloride 89 L, Carbon Dioxide 33.0 H, Anion Gap 7, BUN 22 H, Creatinine 1.03, Estim Creat Clear Calc 91.38, Est GFR (MDRD) Af Amer 98, Est GFR (MDRD) Non-Af 81, BUN/Creatinine Ratio 21.4 H, Glucose 118 H, Calcium 9.7, Magnesium 1.8, Total Bilirubin 2.00 H, AST 20, ALT 30, Alkaline Phosphatase 85, Total Protein 7.8, Albumin 3.3, Globulin 4.5 H, Albumin/Globulin Ratio 0.7 L 06/26/20 05:35: WBC 18.9 H, RBC 5.08, Hgb 14.4, Hct 46.6, MCV 91.7, MCH 28.3, MCHC 30.9 L, RDW Std Deviation 50.2 H, RDW Coeff of Adam 15.0 H, Plt Count 258, MPV 10.0, Immature Gran % (Auto) 0.500, Neut % (Auto) 81.5 H, Lymph % (Auto) 7.4 L, [place] % (Auto) 10.2 H, Eos % (Auto) 0.1, Baso % (Auto) 0.3, Absolute Neuts (auto) 15.4 H, Absolute Lymphs (auto) 1.39, Nucleated RBC % 0, Diff Path Review January06/26/20 06:29: POC Glucose 139 H Current Medications Acetaminophen (Tylenol) 650 mg PO Q6H PRN PRN PRN Reason: Pain Score 1-10/Temp > 100.7 F Last Admin: 06/22/20 18:20 Dose: 650 mg Documented by: Al Hydroxide/Mg Hydroxide (Mylanta Ii) 30 ml PO Q6H PRN PRN PRN Reason: Gastric Burning Albuterol Sulfate (Ventolin Aerosols) 2.5 mg INHALATION Q2H PRN PRN PRN Reason: SOB/Wheezing Aspirin (Aspirin, Baby) 81 mg PO DAILY@0800 [facility] Last Admin: 06/26/20 08:48 Dose: 81 mg Documented by: Atorvastatin Calcium (Lipitor) 40 mg PO QHS [facility] Last Admin: 06/25/20 22:35 Dose: 40 mg Documented by: Atropine Sulfate () 0.5 mg IV UD PRN PRN Reason: HR <50 bpm Dextrose (D50w Syringe) 0 gm IV X1 PRN; Protocol PRN Reason: Hypoglycemia Enoxaparin Sodium (Lovenox) 40 mg SC DAILY [facility] Last Admin: 06/26/20 11:17 Dose: 40 mg Documented by: Furosemide (Lasix) 80 mg IV BID@1000,1800 [facility] Glucagon () 1 mg IM .X1 PRN PRN Reason: Hypoglycemia Heparin Sodium (Beef Lung) (Heparin 500 Unit/5 Ml (100/Ml)) 500 unit IV UD PRN PRN Reason: HEPARIN FLUSH Sodium Chloride () 1,000 mls @ 0 mls/hr IV .Q0M [facility] Insulin Human Lispro (Humalog Kwikpen (Bkc)) 0 unit SC ACHS [facility]; Protocol Last Admin: 06/26/20 11:17 Dose: 2 u Documented by: Labetalol HCl (Trandate) 5 mg IV X1 PRN PRN Reason: SBP >160 when pulling sheath Stop: 06/27/20 11:02 Lidocaine HCl (Xylocaine 2% Jelly) 1 applic TOPICAL Q6H PRN; Protocol PRN Reason: penial pain from catheter Lorazepam (Ativan) 0.5 mg PO Q8H PRN PRN PRN Reason: severe anxiety Last Admin: 06/25/20 13:15 Dose: 0.5 mg Documented by: Melatonin (Melatonin) 3 mg PO QHS [facility] Last Admin: 06/25/20 22:35 Dose: 3 mg Documented by: Metolazone (Zaroxolyn) 5 mg PO DAILY [facility] Last Admin: 06/26/20 08:49 Dose: 5 mg Documented by: Metoprolol Tartrate (Lopressor (Beta Edin)) 25 mg PO BID [facility] Last Admin: 06/26/20 08:49 Dose: 25 mg Documented by: Morphine Sulfate () 2 mg IV Q3H PRN PRN PRN Reason: Pain Score 6-10/10 Nicotine (Nicoderm Cq (Pbkc)) 21 mg TRANSDERM. DAILY [facility] Last Admin: 06/26/20 08:48 Dose: 21 mg Documented by: Oxycodone HCl (Oxyir) 5 mg PO Q4H PRN PRN PRN Reason: Pain Score 4-5/10 Last Admin: 06/23/20 21:08 Dose: 5 mg Documented by: Potassium Chloride (K-Dur) 40 meq PO TID [facility] Last Admin: 06/26/20 05:13 Dose: 40 meq Documented by: Prochlorperazine Edisylate (Compazine Iv) 5 mg IV Q4H PRN PRN PRN Reason: Breakthrough Nausea/Vomiting Last Admin: 06/25/20 13:22 Dose: 5 mg Documented by: Senna/Docusate Sodium (Senokot-S, Karuna-Colace) 2 tablet PO BID PRN PRN PRN Reason: Constipation Last Admin: 06/23/20 21:07 Dose: 2 tablet Documented by: Sodium Chloride () 10 - 40 ml IV UD PRN PRN Reason: SALINE FLUSH Last Admin: 06/25/20 09:34 Dose: 20 ml Documented by: Sodium Chloride () 500 ml IV BOLUS PRN PRN Reason: VASO-VAGAL PROTOCOL Ticagrelor (Brilinta) 90 mg PO BID [facility] Last Admin: 06/26/20 08:48 Dose: 90 mg Documented by: Torsemide (Torsemide 20 Mg Tablet) 20 mg PO X1 ONE Stop: 06/26/20 11:23 Discharge Activity: May Not Drive Weight Bearing Status: Weight bearing as tolerated Call your doctor if you observe: Fever of 101 or Higher, Coldness, Increased Pain, Numbness or Tingling, Change in Color, Inability to urinate, Inability to have a bowel movement, Shortness of breath, Dizziness, Fainting spells, Swelling in the ankles, Prolonged hiccoughing, Increased palpitations (irregular heartbeat), Calf discomfort, Uncontrolled pain Home Medications: Medications to take at Discharge Aspirin [Aspirin, Baby] 81 mg PO DAILY@0800 #30 tab.chew 06/26/20 Atorvastatin Calcium [Lipitor] 40 mg PO QHS #30 tab 06/26/20 Metoprolol Tartrate [Lopressor (beta edin)] 25 mg PO BID #60 tab 06/26/20 Nicotine [Nicoderm Cq] 21 mg TRANSDERM. DAILY #30 patch 06/26/20 Potassium Chloride [K-Dur] 10 meq PO BID #30 tab 06/26/20 Ticagrelor [Brilinta] 90 mg PO BID #60 tab 06/26/20 Torsemide 20 mg PO BID #60 tab 06/26/20 metFORMIN HCl [Glucophage] 1,000 mg PO BIDCM #0 06/26/20 Following Prescriptions Were Given to Patient: Aspirin [Aspirin, Baby] 81 mg PO DAILY@0800 #30 tab.chew Transmission Status: Received by [facility] #30 Ticagrelor [Brilinta] 90 mg PO BID #60 tab Transmission Status: Received by [facility] #30 Potassium Chloride [K-Dur] 10 meq PO BID #30 tab Transmission Status: Received by [facility] #30 Atorvastatin Calcium [Lipitor] 40 mg PO QHS #30 tab Transmission Status: Received by [facility] #30 Metoprolol Tartrate [Lopressor (beta edin)] 25 mg PO BID #60 tab Transmission Status: Received by [facility] #30 Nicotine [Nicoderm Cq] 21 mg TRANSDERM. DAILY #30 patch Transmission Status: Received by [facility]30 Torsemide 20 mg PO BID #60 tab Transmission Status: Received by [facility] #30 Primary Care Physician: Giuliano Jennings MD [Primary Care Provider] - Please follow up with your Primary Care Physician in: in 1 week with BMP Please Follow Up With: Shae Medrano, PA Please Follow Up With: Ramses Clinton MD When: in 1-2 weeks for diuretics Please Follow Up With: Brigitte Metzger MD When: in 4 weeks Medical Necessity - Tobacco Use Smoking Status: Current every day smoker Tobacco Use: Cigarettes Meaningful Use Info Meaningful Use Diagnoses (Choose all that apply): CHF - CHF CARMENCITA/ARB ordered at discharge?: No Reason CARMENCITA/ARB not ordered?: Worsening renal disease, Worsening renal dysfunctn Documented LVEF (%): 15 Inpatient E&M: 43368 Disch Hosp
[2020-06-26 11:35] LABS: Bedside Glucose 196 mg/dL (70-110)
[2020-06-26 12:52] LABS: Cholesterol 52 mg/dL (200); High Density Lipoprotein 20 mg/dL; Triglycerides 61 mg/dL; Very Low Density Lipoprotein 12 mg/dL (5-40)
--- NOTE | 2020-06-26 13:36 | PHA.DC.MC ---
Pharmacy Service has performed discharge medication reconciliation and counseling for this patient. The patient was counseled on the following discharge medications and changes in medications for homegoing were reviewed. Aspirin [Aspirin, Baby] 81 mg PO DAILY@0800 #30 tab.chew 06/26/20 Atorvastatin Calcium [Lipitor] 40 mg PO QHS #30 tab 06/26/20 Metoprolol Tartrate [Lopressor (beta estephania)] 25 mg PO BID #60 tab 06/26/20 Nicotine [Nicoderm Cq] 21 mg TRANSDERM. DAILY #30 patch 06/26/20 Potassium Chloride [K-Dur] 10 meq PO BID #30 tab 06/26/20 Ticagrelor [Brilinta] 90 mg PO BID #60 tab 06/26/20 Torsemide 20 mg PO BID #60 tab 06/26/20 The Reason for Use, instructions for use, and potential side effects were reviewed for all new medications. The patient's questions regarding all of their medications were answered. The patient demonstrated some understanding but would benefit from further education and reinforcement. Home Medications Aspirin [Aspirin, Baby] 81 mg PO DAILY@0800 #30 tab.chew 06/26/20 Atorvastatin Calcium [Lipitor] 40 mg PO QHS #30 tab 06/26/20 Metoprolol Tartrate [Lopressor (beta estephania)] 25 mg PO BID #60 tab 06/26/20 Nicotine [Nicoderm Cq] 21 mg TRANSDERM. DAILY #30 patch 06/26/20 Potassium Chloride [K-Dur] 10 meq PO BID #30 tab 06/26/20 Ticagrelor [Brilinta] 90 mg PO BID #60 tab 06/26/20 Torsemide 20 mg PO BID #60 tab 06/26/20 metFORMIN HCl [Glucophage] 1,000 mg PO BIDCM #0 06/26/20 The patient's discharge medication list was reviewed for discrepancies and discrepancies were resolved.
--- NOTE | 2020-06-26 14:14 | CASEMGMT ---
Pt does not qualify for home oxygen at this time. Pt awaiting [facility] placement prior to discharge. This RN CM to room and pt declines need for anything else for discharge at this time. Pt does have some questions regarding [employer] and this RN CM advised him to ask [employer] rep/nurse when they arrive, voices understanding. Pt voices no further questions/concerns/needs at this time. SStaten RN CM
--- NOTE | 2020-06-26 14:17 | CHAPLAIN ---
Type of Pastoral Visit ___ Initial Visit _x__ Follow-up Visit ___ On-call Visit ___ General Patient Visit ___ Spiritual Assessment ___ Family Conference ___ Bereavement ___ Rapid Response ___ Code Blue ___ Other (describe below) Pastoral Care Referral From _x__ Patient ___ Family ___ Nurse ___ Physician ___ Business Services Sales Representative ___ Incident Response Analyst ___ Other (describe below) Sacrament/Intervention _x__ Active listening ___ Anointing ___ Anabaptism ___ Bereavement ___ Communion ___ Hortencia exploration ___ ___ Life review ___ Prayer ___ Reconciliation ___ Sacrament of Sick _x__ Supportive presence ___ Wedding ___ Other (describe below) Pastoral Comments returned to this patient due to short encounter at first visit last week; spouse of pt is with him; pt gives update
[2020-06-27 14:50] LABS: Pathologist Review Reviewed
--- NOTE | 2020-06-27 16:30 | CASEMGMT ---
CHETNA VIRGEN Discharge F/U Phone Call LACE: Jude Strata: 3 Discharge date: 06/26/2020 Call date: 06/27/2020 Call time: 1630 Admission dx: Bilat LE edema, CHF Pt states doing 'alright' since discharge. Pt states no questions regarding d/c instructions or medications at this time. Pt states [employer] rep answered all his questions regarding the vest. Pt states has d/c appts scheduled and plans to keep. Pt states does have a slight sinus infection and asks what he can take with all his new meds and this CHETNA VIRGEN advised him to call and speak with his pharmacist at [facility] in regards to same, voices understanding. Pt voices no further questions/concerns/needs at this time. S[place]en CHETNA VIRGEN
== END 2020-06-26 16:26 | disposition home or self-care (01) | DRG 246 ==
LOC: ED 10:27 → PCU 11:32
PROVIDERS: Family Medicine; Internal Medicine Interventional Cardiology; Internal Medicine Nephrology; Admitting Provider Internal Medicine; Emergency Provider Emergency Medicine; PCP Family Medicine; Visit Provider Internal Medicine
DX: I13.0 Hypertensive heart and chronic kidney disease with heart failure and stage 1 through stage 4 chronic kidney disease, or unspecified chronic kidney disease (principal); I50.41 Acute combined systolic (congestive) and diastolic (congestive) heart failure; N17.9 Acute kidney failure, unspecified; E87.3 Alkalosis; Z68.41 Body mass index [BMI] 40.0-44.9, adult; N18.30 Chronic kidney disease, stage 3 unspecified; E11.22 Type 2 diabetes mellitus with diabetic chronic kidney disease; I25.10 Atherosclerotic heart disease of native coronary artery without angina pectoris; R80.9 Proteinuria, unspecified; E87.5 Hyperkalemia; G47.33 Obstructive sleep apnea (adult) (pediatric); E66.01 Morbid (severe) obesity due to excess calories; F17.210 Nicotine dependence, cigarettes, uncomplicated; Z79.899 Other long term (current) drug therapy; Z79.84 Long term (current) use of oral hypoglycemic drugs
CPT/HCPCS: 36415; 71045; 74176; 80048; 80053; 80061; 80076; 81001; 82570; 82962; 83036; 83690; 83735; 83880; 84100; 84156; 84443; 84484; 85025; 85610; 85730; 92928; 93005; 93306; 93454; 99152; 99153; 99251; 99285; J7030; J7040; Q9957; Q9967; A4216; C1725; C1769; C1874; C1887; C1894; C8929; C9600; G0463; J1327; J1940; J2405

== ENCOUNTER → 2020-10-16 09:43 | Outpatient (CLI) | payer MEDICAID, SELFPAY ==
[2020-08-15 08:51] VITALS: BMI 35.9
[2020-09-26 13:20] VITALS: BMI 37.2
--- NOTE | 2020-10-16 09:45 | ECHOCS_ITS ---
Reason For Study: CHF Procedure This was a 2D Doppler, Color Flow transthoracic echocardiogram. The study was technically difficult. Due to body habitus. Contrast injection was performed. Exam performed in department. Left Ventricle Normal LV size. Segmental dysfunction with preserved ejection fraction (see wall motion). The estimated ejection fraction is 53 %. Stage 1 diastolic dysfunction. Infero-Basal: Severely Hypokinetic. Basal inferoseptal: Akinetic. Right Ventricle Normal RV size. Normal systolic function. Atria Normal left atrium. Normal right atrium. Mitral Valve Normal mitral valve. Tricuspid Valve Normal tricuspid valve. Aortic Valve The aortic valve is not well visualized. Pulmonic Valve The pulmonic valve is not well visualized. Great Vessels Normal aortic root. The pulmonary artery is normal size. Normal inferior vena cava. Pericardium/Pleural No pericardial effusion. Medication 22 gauge I.V. with prn adaptor inserted into right arm. Diluted definity 3.0ml given slow IV push to enhance endocardial definition. MMode/2D Measurements & Calculations LVIDd: 5.4 cm IVSd: 1.0 cm Ao root diam: 3.3 cm LVIDs: 4.5 cm LVPWd: 0.98 cm RVDd: 3.5 cm FS: 17.6 % LAV(MOD-bp): 33.1 ml LA A4 area: 11.8 cm2 LA dimension(2D): 3.7 cm LAV(MOD-bp) Indexed: 13.9 ml/m2 LAV(MOD-sp2): 36.4 ml LAV(MOD-sp4): 26.8 ml RA A4 area: 12.6 cm2 Doppler Measurements & Calculations MV E max galindo: 66.6 cm/sec Lat Peak E' Galindo: 7.1 cm/sec Med Peak E' Galindo: 6.3 cm/sec MV A max galindo: 87.4 cm/sec E/E' lat: 9.4 E/E' med: 10.6 MV E/A: 0.76 Ao V2 max: 137.4 cm/sec LV V1 max: 91.0 cm/sec PA V2 max: 107.2 cm/sec Ao max P.5 mmHg LV V1 max P.5 mmHg Interpretation Summary Normal LV size. Segmental dysfunction with preserved ejection fraction (see wall motion). The estimated ejection fraction is 53 %. Stage 1 diastolic dysfunction. Contrast injection was performed. Compared to previous study, the left ventricular systolic function has improved.. Ordering Physician: Shae Medrano Referring Physician: Giuliano Jennings Performed By: Andreina Jeffrey, MARCOS, RVT
== END ==
PROVIDERS: PCP Family Medicine; Referring Provider Physician Assistant Medical; Visit Provider Physician Assistant Medical
DX: I42.9 Cardiomyopathy, unspecified (principal); I25.10 Atherosclerotic heart disease of native coronary artery without angina pectoris; I50.9 Heart failure, unspecified
CPT/HCPCS: 93306; Q9957; A4216; C8929

== ENCOUNTER → 2021-07-03 06:17 | Outpatient (CLI) | payer MEDICAID, SELFPAY ==
--- NOTE | 2021-07-03 12:59 | STRESSREP ---
Stress Test Report Exercise myocardial perfusion stress test. 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 Stress protocol: Resting EKG demonstrates normal sinus rhythm with a rate of 61 bpm normal intervals are noted resting blood pressure is 128/88 mmHg. The patient exercised according to regular Dima protocol for total duration of 4 minutes and 47 seconds. The maximum heart rate attained was 141 bpm which was 83% of max impact her heart rate the maximum workload was 7 metabolic equivalents. At rest there were no ST or T wave changes noted to suggest ischemia cardiac peak exercise upsloping ST changes were noted with did not meet the criteria for ischemia. The test was terminated due to leg fatigue no clinical angina was noted. The peak blood pressure is 142/84 mmHg. Myocardial perfusion protocol. 14.7 mCi of technetium 99m sestamibi was injected at rest. The patient exercised according to regular Dima protocol for 4 minutes and 47 seconds and at peak exercise 44.6 mCi of technetium 99m sestamibi was injected stress images were obtained stress and rest images were reconstructed and compared in the short axis vertical long horizontal long axis. Gated images were also obtained Perfusion SPECT analysis: Review of the stress images demonstrate normal uptake of tracer noted in all areas of the myocardium. The resting images similarly demonstrate normal uptake of tracer noted in all areas of the myocardium. No areas of reversibility are noted to suggest ischemia and no previous infarct is noted. Gated SPECT analysis: The gated ejection fraction is 57%. Conclusion: Normal exercise myocardial perfusion stress test at a moderate workload. Preserved ejection fraction.
== END ==
PROVIDERS: PCP Family Medicine; Referring Provider Internal Medicine Cardiovascular Disease; Visit Provider Internal Medicine Cardiovascular Disease
DX: I25.10 Atherosclerotic heart disease of native coronary artery without angina pectoris (principal); I42.8 Other cardiomyopathies; I11.0 Hypertensive heart disease with heart failure; I50.42 Chronic combined systolic (congestive) and diastolic (congestive) heart failure; E78.5 Hyperlipidemia, unspecified; Z95.5 Presence of coronary angioplasty implant and graft
CPT/HCPCS: 78452; 93017; A9500; A4216

== ENCOUNTER → 2023-10-01 | Outpatient (CLI) | payer OTHER, SELFPAY ==
--- OUTSIDE RECORDS SUMMARY | 2023-10-01 05:56 | XMS RPT_ITS | CCD ---
Author Name Unknown Address [address] [place] [address] Organization [facility] Care Team Providers Care Behavioral Consultant Name Role Phone Tor Jennings MD Primary Care Provider TOR JENNINGS Attending Unavailable TOR JENNINGS Primary Care Unavailable TOR JENNINGS Referring Unavailable TOR JENNINGS Primary Care Unavailable TOR JENNINGS Referring Unavailable TOR JENNINGS Primary Care Unavailable TOR JENNINGS Attending Unavailable TOR JENNINGS Primary Care Unavailable TOR JENNINGS Referring Unavailable TOR JENNINGS Primary Care Unavailable Allergies Allergy Classification Reported Allergen(s) Allergy Type Date of Onset Reaction(s) Facility (20 sources) Niacin; Translations: [NIACIN] Drug Allergy 12-14-2015 Intolerance [facility] Work Phone: Medications Current Medications Medication Drug Class(es) Dates Sig (Normalized) Sig (Original) 0.5 ml dulaglutide 1.5 mg/ml auto-injector (20 sources) GLP-1 Receptor Agonist Start: 06-06-2021 End: 05-03-2024 inject 0.75 mg by subcutaneous injection every week dulaglutide (TRULICITY) 0.75 mg/0.5 mL pen injector Inject 0.75 mg subcutaneously one time a week. Inject dose once per week. Discard Pen After 2 mL 05/04/2023 05/03/2024 Active Completed/Discontinued Medications Medication Drug Class(es) Dates Sig (Normalized) Sig (Original) aspirin 81 mg oral tablet (19 sources) Platelet Aggregation Inhibitor, Nonsteroidal Anti-inflammatory Drug Start: 12-06-2012 take 1 tablet by mouth once daily at mealtime Aspirin 81 mg Tab Indications: Type II or unspecified type diabetes mellitus without mention of complication, not stated as uncontrolled Take 1 tablet by mouth once daily. Take with food. 30 tablet 11 12/06/2012 Active Problems Active Problems Problem Classification Problem Date Documented Da te Episodic/Chronic Congestive heart failure; nonhypertensive (20 sources) Congestive heart failure; Translations: [Heart failure, unspecified] Onset: 08-06-2020 08-06-2020 Chronic Coronary atherosclerosis and other heart disease (6 sources) Coronary atherosclerosis; Translations: [Atherosclerotic heart disease of [place] coronary artery without angina pectoris] Onset: 02-23-2023 02-23-2023 Chronic Diabetes mellitus with complications (20 sources) Renal disorder due to type 2 diabetes mellitus; Translations: [Type 2 diabetes mellitus with diabetic nephropathy] Onset: 08-06-2020 08-06-2020 Chronic Diabetes mellitus without complication (4 sources) Type 2 diabetes mellitus without complication; Translations: [Type 2 diabetes mellitus without complications] Chronic Disorders of lipid metabolism (20 sources) Hyperlipidemia; Translations: [Hyperlipidemia, unspecified] Onset: 03-18-2011 07-02-2015 Chronic Essential hypertension (20 sources) Hypertensive disorder; Translations: [Essential (primary) hypertension] Onset: 03-18-2011 11-14-2011 Chronic Fluid and electrolyte disorders (7 sources) Metabolic alkalosis; Translations: [Alkalosis] Onset: 02-23-2023 02-23-2023 Episodic Immunizations and screening for infectious disease (2 sources) Viral screening status; Translations: [Encounter for screening for other viral diseases] Episodic Other screening for suspected conditions (not mental disorders or infectious disease) (5 sources) Patient encounter status; Translations: [Encounter for screening for malignant neoplasm of colon] Episodic Karuna-; endo-; and myocarditis; cardiomyopathy (except that caused by tuberculosis or sexually transmitted disease) (20 sources) Cardiomyopathy; Translations: [Cardiomyopathy, unspecified] Onset: 08-06-2020 11-17-2020 Chronic Residual codes; unclassified (19 sources) Obstructive sleep apnea syndrome; Translations: [Obstructive sleep apnea (adult) (pediatric)] Onset: 04-11-2019 04-22-2021 Chronic Past or Other Problems Problem Classification Problem Date Documented Date Episodic/Chronic Administrative/social admission (6 sources) Administrative reason for encounter; Translations: [Encounter for administrative examinations, unspecified] Onset: 02-23-2023 02-23-2023 Episodic Other diseases of kidney and ureters (20 sources) Renal impairment; Translations: [Disorder of kidney and ureter, unspecified] Onset: 11-17-2020 11-17-2020 Episodic Other diseases of kidney and ureters (1 source) Disorder of kidney and ureter, unspecified; Translations: [Renal insufficiency] Onset: 11-17-2020 Episodic Residual codes; unclassified (6 sources) Edema; Translations: [Edema, unspecified] Onset: 02-23-2023 02-23-2023 Episodic Results Test Name Value Interpretation Reference Range Facil ity Vital Signs Date Time Vital Sign Value Performing Clinician Faci lity 05-01-2022 10:35-0400 Diastolic blood pressure 65 mm[Hg] Brooke Deleon MD Work Phone: [facility] 05-01-2022 10:35-0400 Heart rate 78 /min Brooke Deleon MD Work Phone: [facility] 05-01-2022 10:35-0400 Respiratory rate 16 /min Brooke Deleon MD Work Phone: [facility] 05-01-2022 10:35-0400 SaO2% (BldA) [Mass fraction] 92 % Brooke Deleon MD Work Phone: [facility] 05-01-2022 10:35-0400 Systolic blood pressure 114 mm[Hg] Brooke Deleon MD Work Phone: [facility] 05-01-2022 10:16-0400 Body temperature 97.9 [degF] Brooke Deleon MD Work Phone: [facility] 05-01-2022 09:00-0400 Body height 177.8 cm Brooke eDleon MD Work Phone: [facility] 05-01-2022 09:00-0400 Body weight 118.84 kg Brooke Deleon MD Work Phone: [facility] 04-21-2022 16:12-0400 Body height 177.8 cm Brooke Deleon MD Work Phone: [facility] 04-21-2022 16:12-0400 Body temperature 97.7 [degF] Brooke Deleon MD Work Phone: [facility] 04-21-2022 16:12-0400 Body weight 118.93 kg Brooke Deleon MD Work Phone: [facility] 04-21-2022 16:12-0400 Diastolic blood pressure 82 mm[Hg] Brooke Deleon MD Work Phone: [facility] 04-21-2022 16:12-0400 Heart rate 95 /min Brooke Deleon MD Work Phone: [facility] 04-21-2022 16:12-0400 SaO2% (BldA) [Mass fraction] 95 % Brooke Deleon MD Work Phone: [facility] 04-21-2022 16:12-0400 Systolic blood pressure 130 mm[Hg] Brooke Deleon MD Work Phone: [facility] 04-14-2022 16:55-0400 Body weight 120.2 kg Luz Elena Haagen SENIOR STORAGE ENGINEER.[employer] Work Phone: [facility] 04-14-2022 16:55-0400 Diastolic blood pressure 82 mm[Hg] Luz Elena Haagen SENIOR STORAGE ENGINEER.[employer] Work Phone: [facility] 04-14-2022 16:55-0400 Heart rate 90 /min Luz Elena Haagen SENIOR STORAGE ENGINEER.[employer] Work Phone: [facility] 04-14-2022 16:55-0400 Respiratory rate 18 /min Luz Elena Haagen SENIOR STORAGE ENGINEER.[employer] Work Phone: [facility] 04-14-2022 16:55-0400 SaO2% (BldA) [Mass fraction] 94 % Luz Elena Haagen SENIOR STORAGE ENGINEER.[employer] Work Phone: [facility] 04-14-2022 16:55-0400 Systolic blood pressure 138 mm[Hg] Luz Elena Haagen SENIOR STORAGE ENGINEER.[employer] Work Phone: [facility] Encounters Encounter Date Encounter Type Care Provider Facility Start: 09-11-2023 End: 09-12-2023 ambulatory TOR JENNINGS Facility:[facility] Start: 08-31-2023 End: 09-01-2023 [facility] Start: 07-20-2023 Sherry Jennings MD Work Phone: [facility] Procedures Date Procedure Procedure Detail Performing Clinician Start: 05-01-2022 Gluc bld gluc mntr d ev cleared fda spec home use Brooke Deleon MD Work Phone: Start: 05-01-2022 Colonoscopy Tor Flores MD Work Phone: Start: 04-30-2022 Hemoglobin A1c/Hemoglobin.total in Blood [facility] Start: 04-30-2022 HEP C AB IA W/CONF SCRN [facility] Start: 04-30-2022 HIV 1/2 ANTIGEN/ANTIBODY,FOURTH GENERATION W/RFL [facility] Start: 04-30-2022 Lipid panel [facility] Provid er Start: 04-14-2022 Adult depression screening assessment Luz Elena Addison SENIOR STORAGE ENGINEER.[employer] Work Phone: Start: 11-17-2020 Adult depression screening assessment Loretta Lagunas SENIOR STORAGE ENGINEER.[employer] Work Phone: Start: 06-25-2020 History of placement of stent for coronary artery disease History of coronary artery stent placement Bethany Diaz SENIOR STORAGE ENGINEER.[employer] Work Phone: Plan of Treatment Date Care Activity Detail Author Start: 05-11-2031 Urine microalbumin profile [facility] Start: 05-01-2024 Colonoscopy COLONOSCOPY [facility] Start: 05-01-2024 COLORECTAL CANCER SCREENING COLORECTAL CANCER SCREENING [facility] Start: 02-24-2024 ANNUAL PCP TEAM FUR DRUMMER JUDE DISEASE VISIT ANNUAL PCP TEAM CHRONIC DISEASE VISIT [facility] Start: 02-24-2024 Hepatitis B screening URINE AL BUMIN:CREATININE RATIO [facility] Start: 02-24-2024 Hepatitis B surface antibody level LDL CHOLESTEROL [facility] Start: 02-24-2024 PNEUMOCOCCAL (2 - PCV) PNEUMOCOCCAL (2 - PCV) [facility] Immunizations Immunization Date Immunization Notes Care Provider Fa cility 06-05-2021 influenza, injectabl e, quadrivalent, contains preservative Loretta Lagunas SENIOR STORAGE ENGINEER.[employer] Work Phone: [facility] 06-05-2021 influenza virus vacc ine, unspecified formulation Tor Jennings MD Work Phone: [facility] 05-11-2021 tetanus toxoid, redu beto diphtheria toxoid, and acellular pertussis vaccine, adsorbed Bethany Montoyalogestela SENIOR STORAGE ENGINEER.[facility] Work Phone: [facility] 07-09-2020 influenza, injectabl e, quadrivalent, contains preservative Loretta Lagunas SENIOR STORAGE ENGINEER.[employer] Work Phone: [facility] 10-26-2019 influenza, injectabl e, quadrivalent, contains preservative Loretta Lagunas SENIOR STORAGE ENGINEER.[employer] Work Phone: [facility] 06-11-2018 influenza, injectabl e, quadrivalent, contains preservative Loretta Lagunas SENIOR STORAGE ENGINEER.[facility] Work Phone: [facility] Work Phone: 09-28-2017 influenza, injectabl e, quadrivalent, contains preservative Loretta Lagunas SENIOR STORAGE ENGINEER.[facility] Work Phone: [facility] 06-02-2016 influenza, injectabl e, quadrivalent, contains preservative Loretta Lagunas SENIOR STORAGE ENGINEER.[facility] Work Phone: [facility] 07-11-2013 influenza virus vacc ine, unspecified formulation Loretta Lagunas SENIOR STORAGE ENGINEER.[employer] Work Phone: [facility] Work Phone: 03-10-2011 pneumococcal polysaccharide vaccine, 23 valent Loretta Lagunas SENIOR STORAGE ENGINEER.[employer] Work Phone: [facility] 03-10-2011 tetanus toxoid, redu beto diphtheria toxoid, and acellular pertussis vaccine, adsorbed Loretta Lagunas SENIOR STORAGE ENGINEER.[employer] Work Phone: [facility] Payers Date Payer Category Payer Medicaid [id number] 2021 Unknown [id number] 2021 Unknown [id number] 2020 Medicaid [employer] [id number] 2020-Present [phone] [address] [place] [address] Medicaid [id number] 2020 Medicaid [id number] Social History Date Type Detail Facility Start: 07-09-2020 End: 02-23-2023 Tobacco smoking status NHIS Ex-smoker [facility] Work Phone: End: 06-20-2020 History of tobacco use Current smoker [facility] Work Phone: End: 06-20-2020 History of tobacco use Cigarette Smoker [facility] Work Phone: Start: 07-09-2020 End: 02-23-2023 Cigarettes smoked current (pack per day) - Reported 1 [facility] Work Phone: Start: 07-09-2020 End: 02-23-2023 Tobacco use and exposure Smokeless tobacco non-user [facility] Work Phone: Start: 09-16-2021 End: 02-23-2023 Alcohol intake Current non-drinker of alcohol (finding) [facility] Start: 11-17-2020 End: 09-16-2021 History SDOH Alcohol Frequency 1 [facility] Start: 11-17-2020 History SDOH Alcohol Std Drinks 98 [facility] Start: 11-17-2020 History SDOH Social Connections Phone 5 [facility] Start: 11-17-2020 End: 09-16-2021 History SDOH Social Connections Get Together 2 [facility] Start: 11-17-2020 History SDOH Social Connections Living 3 [facility] Start: 11-17-2020 Education 12 [facility] Start: 1970 Sex Assigned At Not on file [facility] Start: 04-11-2022 End: 05-01-2022 Exposure to SARS-CoV-2 (event) Not sure [facility] Start: 09-15-2021 End: 02-23-2023 Tobacco use panel [facility] Work Phone: Adult Depression Scr eening Assessment 0 [facility] Work Phone: Start: 02-23-2023 Tobacco Comment less than 1/2 pack per day [facility] Do you belong to any clubs or organizations such as sikh groups, unions, fraternal or athletic groups, or school groups? No [facility] Are you now , , , , never or living with a partner? [facility] How often to you hav e a drink containing alcohol? Never [facility] Do you feel stress - tense, restless, nervous, or anxious, or unable to sleep at night because your mind is troubled all the time - these days [OSQ] Not at all [facility] (I/We) worried wheth er (my/our) food would run out before (I/we) got money to buy more. Never true [facility] Medical Equipment Procedure Code Equipment Code Equipment Origin al Text Equipment Identifier Dates Start: 09-28-2017 End: 10-07-2022 Clinical Notes 03-18-2011 to 08-31-2023 Telephone Encounter - Lexie Almazan Ma - 06/04/2023 11:04 AM EDTTelephone Encounter - Negra Ochoa - 06/04/2023 9:55 AM EDTTelephone Encounter - Daphne Napoles LPN - 05/06/2023 4:39 PM EDT Note Date & Type Note Facility 08-31-2023 Note HNO ID: [id number] Author: Tor Jennings MD Service: ? Author Type: Physician Type: Progress Notes Filed: 08/31/2023 12:44 PM Note Text: Patient presents with: 6 Month Exam HPI: Patient presents today for office visit for follow up. HTN: Continues on Lisinopril 5 mg daily Does not monitor BP Stable Denies chest pain and shortness of breath No headaches or dizziness Denies palpitations or syncopal episodes Has been off Torsemide since February. No edema. HLD: Continues on Atorvastatin Denies myalgias DM: Continues on Metformin 1000 mg BID, Jardiance 25 mg daily, and Trulicity 0.75 mg weekly Checking sugars every couple days Avg 97-130 Watches diet No vision changes Follows with [facility]. Scheduled for 09/11/23 for follow up. Had a gi bug recently. Now feeling better. Requests flu shots. Was in the hospital for syncopal episode over the summer at [place]. Had a negative work up. Did not follow up Has an appt to follow up with dispensing optician next week for same. He had resumed torsemide and had since stopped it an been fine. Will defer to cardiology for follow up since has been fine now. Had extensive work up in hospital. MEDICATIONS: Current Outpatient Medications Medication Sig lisinopril (ZESTRIL) 5 mg tablet Take 1 tablet by mouth once daily. ticagrelor (BRILINTA) 90 mg tablet Take 1 tablet by mouth twice daily. blood sugar diagnostic (BLOOD GLUCOSE TEST) test strip Test blood sugar(s) 2 times daily. Dx: Type 2 DM - Controlled E11.9 Insulin: yes empagliflozin (JARDIANCE) 25 mg tablet Take 1 tablet by mouth daily with breakfast. atorvastatin (LIPITOR) 40 mg tablet Take 1 tablet by mouth once daily. dulaglutide (TRULICITY) 0.75 mg/0.5 mL pen injector Inject 0.75 mg subcutaneously one time a week. Inject dose once per week. Discard Pen After metFORMIN (GLUCOPHAGE) 1,000 mg tablet Take 1 tablet by mouth twice daily. Lancets lancets Tests twice a day. insulin requiring. TRUE METRIX GLUCOSE METER use to test blood sugar carvedilol (COREG) 25 mg tablet Take 25 mg by mouth twice daily. Insulin [place], Disposable, (BD ULTRA-FINE PRESLEY PEN NEEDLE) 32 gauge x 5/32 Use one needle for each dose, 1 times daily. Cholecalciferol, Vitamin D3, 25 mcg (1,000 unit) cap Take 1 capsule by mouth once daily. Lancets lancets Test blood sugar(s) 1 times daily. Dx: Type 2 DM - Controlled E11.9 Insulin: No Aspirin 81 mg Tab Take 1 tablet by mouth once daily. Take with food. No current facility-administered medications for this visit. 68 ALLERGIES: ALLERGIES Allergen Reactions Niacin Intolerance Severe flushing, burning sensation PAST MEDICAL HISTORY Diagnosis Date Diabetes mellitus type II Hypertriglyceridemia 2011 severe Lactose intolerance Obesity Unspecified essential hypertension Essential hypertension PAST SURGICAL HISTORY Procedure Laterality Date COLONOSCOPY 05/01/2022 repeat in 2 years FAMILY HISTORY Problem Relation Age of Onset Cancer Mother Hypertension Mother Hypertension Father Diabetes Father Stroke Father - heart attack None Sister Diabetes Brother Hypertension Brother Heart Brother passed from heart attack Social History Tobacco Use Smoking status: Former Packs/day: 1 Types: Cigarettes Quit date: 06/20/2020 Years since quittin.1 Smokeless tobacco: Never Tobacco comments: less than 1/2 pack per day Vaping Use Vaping Use: Never used Substance Use Topics Alcohol use: No Drug use: No Reviewed current medications, allergies, past medical history, surgical history, family history and social history today. REVIEW OF SYSTEMS No gu or gi issues. All other reviewed and negative other than HPI. HEALTH MAINTENANCE: Reviewed health maintenance issues today and recommended the following in detail. BP Controlled (<130/80) Never done Diabetic Foot Exam due on 04/14/2023 Influenza Vaccine(1) due on 05/15/2023 HbA1C due on 08/25/2023 VITALS: BP 120/80 Pulse 68 Ht 177.8 cm (5' 10 ) Wt 114.8 kg (253 lb) SpO2 98% BMI 36.30 kg/m? Last 4 Encounter Wt Readings: Date: Wt: 02/23/2023 119.3 kg (263 lb) 05/01/2022 118.8 kg (262 lb) 04/21/2022 118.9 kg (262 lb 3.2 oz) 04/14/2022 120.2 kg (265 lb) PHYSICAL EXAMINATION: General appearance: Well appearing, alert, in no acute distress, well-hydrated, well nourished. Skin: Skin color, texture, turgor normal, no suspicious rashes or lesions Head: Normocephalic, no masses, lesions, tenderness or abnormalities Eyes: Anicteric sclera. Pupils are equally round and reactive to light. Extraocular movements are intact. Lungs: Lungs clear to auscultation. No wheezing, rhonchi, rales Heart: RRR without murmur, gallop, or rubs. No ectopy Abdomen: Normal abdominal exam, Abdomen soft, non-tender. Bowel sounds normal. No masses, organomegaly Extremities: No deformities, edema, skin discoloration (more content not included)... [facility] 06-04-2023 Miscellaneous Notes Formattin g of this note might be different from the original. FELIX 03/16/23 NOV 08/24/23 Patient has been identified by name and date of : Yes Last office visit in this department: 02/23/2023 RX INSTRUCTIONS: Patient aware RX will be sent to pharmacy. No need to notify patient. Patient phones requesting refills as follows: Requested Prescriptions Pending Prescriptions Disp Refills lisinopril (ZESTRIL) 5 mg tablet Sig: Take 1 tablet by mouth once daily. ticagrelor (BRILINTA) 90 mg tablet 180 tablet 3 Sig: Take 1 tablet by mouth twice daily. Please review and advise. Negra Ochoa documented in this encounter [facility] 05-06-2023 Miscellaneous Notes Formattin g of this note is different from the original. Patient phones requesting refills as follows: Requested Prescriptions Pending Prescriptions Disp Refills atorvastatin (LIPITOR) 40 mg tablet 30 tablet 11 Sig: Take 1 tablet by mouth once daily. FELIX-02/23/23 Labs-02/23/23 NOV-08/24/23 Please review and advise. Daphne Napoles LPN documented in this encounter [facility] 05-04-2023 Miscellaneous Notes Formattin g of this note is different from the original. Last appt: 02/23/23 Last A1C: 02/23/23 - 5.9 Patient has been identified by name and date of : Yes Requested Prescriptions Pending Prescriptions Disp Refills dulaglutide (TRULICITY) 0.75 mg/0.5 mL pen injector 2 mL 11 Sig: Inject 0.75 mg subcutaneously one time a week. Inject dose once per week. Discard Pen After RX INSTRUCTIONS: Patient aware RX will be sent to pharmacy. No need to notify patient. Nicky David LPN documented in this encounter [facility] 04-01-2023 Miscellaneous Notes Formattin g of this note is different from the original. Patient phones requesting refills as follows: Requested Prescriptions Pending Prescriptions Disp Refills metFORMIN (GLUCOPHAGE) 1,000 mg tablet 60 tablet 5 Sig: Take 1 tablet by mouth twice daily. FELIX-02/23/23 Labs-02/23/23 NOV-08/24/23 Please review and advise. Daphne Napoles LPN documented in this encounter [facility] documented as of this encounter (statuses as of 04/02/2023) [facility] History of Past illness Narrative* Problem Noted Date Diagnosed Date Resolved Date Acute renal failure syndrome 02/23/2023 02/23/2023 Diabetes 03/18/2011 08/06/2020 documented as of this encounter (statuses as of 05/05/2023) [facility] History of Past illness Narrative* Problem Noted Date Diagnosed Date Resolved Date Acute renal failure syndrome 02/23/2023 02/23/2023 Diabetes 03/18/2011 08/06/2020 documented as of this encounter (statuses as of 05/07/2023) [facility] History of Past illness Narrative* Problem Noted Date Diagnosed Date Resolved Date Acute renal failure syndrome 02/23/2023 02/23/2023 Diabetes 03/18/2011 08/06/2020 documented as of this encounter (statuses as of 05/07/2023) [facility] History of Past illness Narrative* Problem Noted Date Diagnosed Date Resolved Date Acute renal failure syndrome 02/23/2023 02/23/2023 Diabetes 03/18/2011 08/06/2020 documented as of this encounter (statuses as of 06/05/2023) [facility] History of Past illness Narrative* Problem Noted Date Diagnosed Date Resolved Date Acute renal failure syndrome 02/23/2023 02/23/2023 Diabetes 03/18/2011 08/06/2020 documented as of this encounter (statuses as of 07/22/2023) [facility]23 NoteHNO ID: [id number] Author: Tor Jennings MD Service: ? Author Type: Physician Type: Progress Notes Filed: 02/23/2023 10:54 AM Note Text: Patient presents with: Follow Up HPI: Patient presents today for office visit for follow up. DM: Monitors BS every couple days Highest is about 130 Taking Metformin 1000 mg BID, Jardiance 25 mg daily, and Trulicity weekly. Tolerating meds. No issues. Watches diet. No vision changes. Up to date on eye exam. No foot lesions, numbness or pain. Does not see podiatry. No polyuria or polydipsia. Last A1c 6.7 HLD: Taking Atorvastatin 40 mg daily. No myalgias. Watching diet. Labs done in April. HTN: Does not monitor BP at home. Bp is up todays. Stable Taking Lisinopril 5 mg daily. Does not miss doses No chest pain or shortness of breath No headaches or dizziness No palpitations No syncope No edema He stopped his Torsemide on his own. States it made him have frequent urination and caused his BS to elevate. Discussed chf and risks associated with not being compliant with treamtent. Stopped it a few weeks. Follows with [facility]. Due for appointment in April. No issues. MEDICATIONS: Current Outpatient Medications Medication Sig metFORMIN (GLUCOPHAGE) 1,000 mg tablet Take 1 tablet by mouth twice daily. Lancets lancets Tests twice a day. insulin requiring. ticagrelor (BRILINTA) 90 mg tablet Take 1 tablet by mouth twice daily. blood sugar diagnostic (BLOOD GLUCOSE TEST) test strip Test blood sugar(s) 2 times daily. Dx: Type 2 DM - Controlled E11.9 Insulin: yes empagliflozin (JARDIANCE) 25 mg tablet Take 1 tablet by mouth daily with breakfast. dulaglutide (TRULICITY) 0.75 mg/0.5 mL pen injector Inject 0.75 mg subcutaneously one time a week. Inject dose once per week. Discard Pen After atorvastatin (LIPITOR) 40 mg tablet Take 1 tablet by mouth once daily. TRUE METRIX GLUCOSE METER use to test blood sugar lisinopril (ZESTRIL, PRINIVIL) 5 mg tablet Take 5 mg by mouth once daily. carvedilol (COREG) 25 mg tablet Take 25 mg by mouth twice daily. Insulin [place], Disposable, (BD ULTRA-FINE PRESLEY PEN NEEDLE) 32 gauge x Use one needle for each dose, 1 times daily. Cholecalciferol, Vitamin D3, 25 mcg (1,000 unit) cap Take 1 capsule by mouth once daily. Lancets lancets Test blood sugar(s) 1 times daily. Dx: Type 2 DM - Controlled E11.9 Insulin: No Aspirin 81 mg Tab Take 1 tablet by mouth once daily. Take with food. No current facility-administered medications for this visit. ALLERGIES: ALLERGIES Allergen Reactions Niacin Intolerance Severe flushing, burning sensation PAST MEDICAL HISTORY Diagnosis Date Diabetes mellitus type II Hypertriglyceridemia 2011 severe Lactose intolerance Obesity Unspecified essential hypertension Essential hypertension PAST SURGICAL HISTORY Procedure Laterality Date COLONOSCOPY 05/01/2022 repeat in 2 years FAMILY HISTORY Problem Relation Age of Onset Cancer Mother Hypertension Mother Hypertension Father Diabetes Father Stroke Father - heart attack None Sister Diabetes Brother Hypertension Brother Heart Brother passed from heart attack Social History Tobacco Use Smoking status: Former Packs/day: 1.00 Types: Cigarettes Quit date: 06/20/2020 Years since quittin.6 Smokeless tobacco: Never Tobacco comments: less than 1/2 pack per day Vaping Use Vaping Use: Never used Substance Use Topics Alcohol use: No Drug use: No Reviewed current medications, allergies, past medical history, surgical history, family history and social history today. REVIEW OF SYSTEMS GI: No nausea, vomiting, or diarrhea : No history of dysuria, frequency or incontinence All other reviewed and negative other than HPI. HEALTH MAINTENANCE: Reviewed health maintenance issues today and recommended the following in detail. HEPATITIS B(1 of 3 - 3-dose series) Never done COVID-19 VACCINE(1) Never done HIV SCREENING -declines. BP CONTROLLED (<130/80) Never done PNEUMOCOCCAL(2 - PCV) due on 03/10/2012 SHINGRIX VACCINE(1 of 2) Never done DTAP,TDAP,TD(2 - Td or Tdap) due on 03/10/2021 DILATED RETINAL EXAM- in the last month URINE ALBUMIN:CREATININE RATIO due on 09/12/2022 DEPRESSION ASSESSMENT Never done HBA1C due on 10/31/2022 VITALS: BP 138/88 Pulse 67 Ht 177.8 cm (5' 10 ) Wt 119.3 kg (263 lb) SpO2 99% BMI 37.74 kg/m? Last 4 Encounter Wt Readings: Date: Wt: 05/01/2022 118.8 kg (262 lb) 04/21/2022 118.9 kg (262 lb 3.2 oz) 04/14/2022 120.2 kg (265 lb) 09/16/2021 114.9 kg (253 lb 3.2 oz) PHYSICAL EXAMINATION: General appearance: Well appearing, alert, in no acute distress, well-hydrated, well nourished. Skin: Skin color, texture, turgor normal, no suspicious rashes or lesions Head: Normocephalic, no masses, lesions, tenderness or abnormalities Eyes: Anicteric sclera. Pupils are equally round and re (more content not included)...[facility]03-22-2023 Miscellaneous Notes* Telephone Encounter - Merissa Mack LPN - 12/03/2022 10:27 AM EDT Lab orders faxed as requested. * Telephone Encounter - Tor Jennings MD - 12/02/2022 4:59 PM EDT Orders placed. See below * Telephone Encounter - Krista Salgado LPN - 12/02/2022 4:00 PM EDT calling, do you want Patient to have labs done prior to his appt 12/15/2022. Asking if orders can be faxed to [facility]. Please notified . Krista Salgado LPN documented in this encounterMer[facility]01-24-2023 Miscellaneous Notes* Telephone Encounter - Meenakshi Hopkins LPN - 10/07/2022 1:58 PM EST Patient has been identified by name and date of : Yes Patient phones for refill(s): Requested Prescriptions Pending Prescriptions Disp Refills metFORMIN (GLUCOPHAGE) 1,000 mg tablet 60 tablet 5 Sig: Take 1 tablet by mouth twice daily. Lancets lancets 100 Each 3 Sig: Tests twice a day. insulin requiring. Date of last office visit in primary care: 04/14/22 Next appt: 10/20/2022 Please advise. Thank you. Meenakshi Hopkins LPN documented in this encounterMercy Health12-15-2022 Miscellaneous Notes* Telephone Encounter - Jazmin Lilly LPN - 08/28/2022 1:47 PM EST Spoke with and information listed below given. verbalizes understanding. Jazmin Lilly LPN * Telephone Encounter - Genny Fuentes PA-C - 08/28/2022 1:05 PM EST Telephone on 08/28/22 HGB A1C CBC LIPID PANEL BASIC COMP METABOLIC PANEL Let them know I placed orders for above week after Janet. 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 asking if lab orders for Hgb A1C can be placed so that patient will have the number to put on form. Patient does have an appointment with Dr. Jennings on 10/20/2022. Please review and advise, Jesi Oneill RN documented in this encounterMercy Health08-22-2022 Miscellaneous Notes* Telephone Encounter - Nicky David LPN - 05/05/2022 11:56 AM EDT Pt notified of results and provider message. Pt voiced understanding. Nicky David LPN * Telephone Encounter - José Antonio Liang LPN - 05/05/2022 10:37 AM EDT TC to pt, no answer, unable to leave message d/t voicemail box is full. José Antonio Liang LPN * Telephone Encounter - Luz Elena Addison APRN.CNP - 05/02/2022 5:20 PM EDT Can please let patient know that I received his labs. The A1C (3 month average blood sugar) was 6.7 for an average glucose of 146, which is controlled. His triglycerides were up a little and his good cholesterol as low, which looks like that has always been the case. Please continue the lipitor. Everything else looked normal/stable. Luz Elena Addison APRN.JEREMIAH documented in this encounterMercy Health08-18-2022 Hospital Discharge instructions* Discharge Instr - Other Orders* Brooke Deleon MD - 05/01/2022 10:16 AM EDT No driving until tomorrow morning. The office will call you with results in 1-2 weeks and determination of timing of next colonoscopy. You may return to a regular diet Please call us if you have any questions - documented in this encounterMercy Health08-18-2022 History and physical note * Brooke Deleon MD - 05/01/2022 10:15 AM EDT UPDATED HISTORY AND PHYSICAL EXAMINATION SERVICE DATE: 05/01/2022 SERVICE TIME: 9:37 PHYSICAL EXAM MUST BE COMPLETED ON ADMISSION The History and Physical (completed in the past 30 days) has been reviewed and the patient has beenexamined. The contents accurately reflect the patient's condition with the following additions or revisions since the H&P was completed. Examination indicates no changes. This H&P can be found in the Electronic Medical Record. SIGNATURE: Brooke Deleon MD PATIENT NAME: Dawit Martínez DATE: May 01, 2022 TIME: 9:37 AM Source Note - Brooke Deleon MD - 05/01/2022 10:15 AM EDT HISTORY AND PHYSICAL Dawit Martínez 1970 REFERRING PHYSICIAN: Luz Elena Addison APRN.C* CHIEF COMPLAINT: Consult (Colonoscopy) HPI: The patient is a 51 year old male referred for endoscopy. Dawit is here for consideration of screening for colon cancer via colonoscopy The patient denies blood in stools, denies abdominal pain, and denies changes in bowel habits. The patient notes no colon cancer in immediate family. The patient has not had previous colonoscopy. PAST MEDICAL HISTORY Diagnosis Date Diabetes mellitus type II Hypertriglyceridemia 2011 severe Lactose intolerance Obesity Unspecified essential hypertension Essential hypertension PAST SURGICAL HISTORY: none Current Outpatient Medications Medication Sig atorvastatin (LIPITOR) 40 mg tablet Take 1 tablet by mouth once daily. TRUE METRIX GLUCOSE METER use to test blood sugar lisinopril (ZESTRIL, PRINIVIL) 5 mg tablet Take 5 mg by mouth once daily. carvedilol (COREG) 25 mg tablet Take 25 mg by mouth twice daily. Insulin [place], Disposable, (BD ULTRA-FINE PRESLEY PEN NEEDLE) 32 gauge x 5/32 Use one needle for each dose, 1 times daily. Cholecalciferol, Vitamin D3, 25 mcg (1,000 unit) cap Take 1 capsule by mouth once daily. potassium chloride (K-TAB) 10 mEq tablet Take 10 mEq by mouth twice daily. Lancets lancets Test blood sugar(s) 1 times daily. Dx: Type 2 DM - Controlled E11.9 Insulin: No Aspirin 81 mg Tab Take 1 tablet by mouth once daily. Take with food. ticagrelor (BRILINTA) 90 mg tablet Take 1 tablet by mouth twice daily. torsemide (DEMADEX) 20 mg tablet Take 1 tablet by mouth twice daily. blood sugar diagnostic (BLOOD GLUCOSE TEST) test strip Test blood sugar(s) 2 times daily. Dx: Type 2 DM - Controlled E11.9 Insulin: yes empagliflozin (JARDIANCE) 25 mg tablet Take 1 tablet by mouth daily with breakfast. dulaglutide (TRULICITY) 0.75 mg/0.5 mL pen injector Inject 0.75 mg subcutaneously one time a week. Inject dose once per week. Discard Pen After metFORMIN (GLUCOPHAGE) 1,000 mg tablet Take 1 tablet by mouth twice daily. Lancets lancets Tests twice a day. insulin requiring. peg 3350-Electrolytes (GOLYTELY) 236-22.74-6.74 -5.86 gram suspension Take 4,000 mL by mouth one time only for 1 dose. Refer to printed prep instructions from your provider. ALLERGIES: Niacin PERSONAL HISTORY: Social History Tobacco Use Smoking status: Former Packs/day: 1.00 Types: Cigarettes Quit date: 06/20/2020 Years since quittin.8 Smokeless tobacco: Never Tobacco comments: less than 1/2 pack per day Vaping Use Vaping Use: Never used Substance Use Topics Alcohol use: No Drug use: No FAMILY HISTORY Problem Relation Age of Onset Cancer Mother Hypertension Mother Hypertension Father Diabetes Father Stroke Father - heart attack None Sister Diabetes Brother Hypertension Brother Heart Brother passed from heart attack The review of systems data was entered by the nurse and reviewed by pa Nursing Notes: Kayleigh Bateman RN 04/21/2022 4:14 PM Signed REVIEW OF SYSTEMS: General: The patient denies fatigue, denies weight loss, denies weight gain, denies feeling hot, and denies feelings of cold. Eyes: The patient denies glaucoma, denies eye injury/surgery, wears glasses or contacts. Ear/Nose/Throat: The patient denies allergies, denies hayfever, denies ear infections, and denies bloody noses. Cardiovascular: The patient denies chest pain, denies heart disease, NOTES high blood pressure,NOTES cardiac stent, denies prior heart attack, denies irregular heart beat, NOTES high cholesterol, denies poor circulation, NOTES heart failure, other cardiac issues, denies claudication, denies cold feet, denies peripheral arterial stent. Respiratory: The patient denies tuberculosis, denies pneumonia, denies frequent cough, denies pulmonary embolism, denies shortness of breath, and denies coughing up blood. Gastrointestinal: The patient denies difficulty swallowing, denies acid reflux, denies ulcers, denies vomiting, denies jaundice/hepatitis, denies gallbladder problems, denies black or tarry stools, denies hemorrhoids, denies bleeding from rectum, denies diverticulitis, denies constipation, denies diarrhea, denies loss of stool control, and denies hernias. Kidney/Bladder: The patient denies kidney stones, denies urine infections, and denies bloody urine. Skin: The patient denies a history of skin cancer, denies bleeding/changing moles, and denies a history of skin rash. Neurologic: The patient denies a history of epilepsy/convulsions, denies headaches, denies head/spinal injuries, and denies stroke/TIA. Psychiatric: The patient denies psychiatric medications, denies depression, and denies voices, denies substance abuse. Endocrine: The patient denies thyroid disorders, NOTES diabetes, and denies hormonal problems. Hematologic: The patient denies a history of bruising, denies bleeding, and denies anemia, denies blood clots. Infections: The patient denies a history of measles and mumps, denies rheumatic fever, and denies sexually transmitted diseases. Musculoskeletal: The patient denies back pain/injury, denies back problems, denies sciatica, deniesknee/foot trouble, denies arthritis, or denies gout. When was patient's last Mammogram screening? N/A Last Colonoscopy: NONE Kayleigh Bateman RN PHYSICAL EXAMINATION: General: The patient is 51 year old male, well nourished, well hydrated in no acute distress. The patient is oriented to time, place, and person. VITALS: Blood pressure 130/82, pulse 95, temperature 36.5 C (97.7 F), height 177.8 cm (5' 10 ), weight 118.9 kg (262 lb 3.2 oz), SpO2 95 %. Body mass index is 37.62 kg/m . Head: Normal cephalic, atraumatic Eyes: pupils are equally round, sclera are clear/anicteric Neck is supple with no tracheal deviation Respiratory: Normal respiratory excursion and pattern. Abdominal exam: benign Extremities: no clubbing, cyanosis or edema. Neuro: non focal Psych: normal mood IMPRESSION: screening for colon cancer via colonoscopy PLAN: I have discussed the above with the patient. I have offered colonoscopy , possible biopsies I have explained the procedure to the patient. I have counseled the patient as to the risks of the procedure, including but not limited to: infection, bleeding, injury to any intrabdominal organs such as liver/spleen, perforation of the GI tract,inability to complete the procedure, complications of anesthesia, etc. - the patient understands. The patient wishes to proceed. I have answered all questions to the patient s satisfaction and the patient has no further questions. * Brooke Deleon MD - 05/01/2022 10:15 AM EDT HISTORY AND PHYSICAL Dawit Martínez 1970 REFERRING PHYSICIAN: Luz Elena Addison APRN.C* CHIEF COMPLAINT: Consult (Colonoscopy) HPI: The patient is a 51 year old male referred for endoscopy. Dawit is here for consideration of screening for colon cancer via colonoscopy The patient denies blood in stools, denies abdominal pain, and denies changes in bowel habits. The patient notes no colon cancer in immediate family. The patient has not had previous colonoscopy. PAST MEDICAL HISTORY Diagnosis Date Diabetes mellitus type II Hypertriglyceridemia 2011 severe Lactose intolerance Obesity Unspecified essential hypertension Essential hypertension PAST SURGICAL HISTORY: none Current Outpatient Medications Medication Sig atorvastatin (LIPITOR) 40 mg tablet Take 1 tablet by mouth once daily. TRUE METRIX GLUCOSE METER use to test blood sugar lisinopril (ZESTRIL, PRINIVIL) 5 mg tablet Take 5 mg by mouth once daily. carvedilol (COREG) 25 mg tablet Take 25 mg by mouth twice daily. Insulin [place], Disposable, (BD ULTRA-FINE PRESLEY PEN NEEDLE) 32 gauge x 5/32 Use one needle for each dose, 1 times daily. Cholecalciferol, Vitamin D3, 25 mcg (1,000 unit) cap Take 1 capsule by mouth once daily. potassium chloride (K-TAB) 10 mEq tablet Take 10 mEq by mouth twice daily. Lancets lancets Test blood sugar(s) 1 times daily. Dx: Type 2 DM - Controlled E11.9 Insulin: No Aspirin 81 mg Tab Take 1 tablet by mouth once daily. Take with food. ticagrelor (BRILINTA) 90 mg tablet Take 1 tablet by mouth twice daily. torsemide (DEMADEX) 20 mg tablet Take 1 tablet by mouth twice daily. blood sugar diagnostic (BLOOD GLUCOSE TEST) test strip Test blood sugar(s) 2 times daily. Dx: Type 2 DM - Controlled E11.9 Insulin: yes empagliflozin (JARDIANCE) 25 mg tablet Take 1 tablet by mouth daily with breakfast. dulaglutide (TRULICITY) 0.75 mg/0.5 mL pen injector Inject 0.75 mg subcutaneously one time a week. Inject dose once per week. Discard Pen After metFORMIN (GLUCOPHAGE) 1,000 mg tablet Take 1 tablet by mouth twice daily. Lancets lancets Tests twice a day. insulin requiring. peg 3350-Electrolytes (GOLYTELY) 236-22.74-6.74 -5.86 gram suspension Take 4,000 mL by mouth one time only for 1 dose. Refer to printed prep instructions from your provider. ALLERGIES: Niacin PERSONAL HISTORY: Social History Tobacco Use Smoking status: Former Packs/day: 1.00 Types: Cigarettes Quit date: 06/20/2020 Years since quittin.8 Smokeless tobacco: Never Tobacco comments: less than 1/2 pack per day Vaping Use Vaping Use: Never used Substance Use Topics Alcohol use: No Drug use: No FAMILY HISTORY Problem Relation Age of Onset Cancer Mother Hypertension Mother Hypertension Father Diabetes Father Stroke Father - heart attack None Sister Diabetes Brother Hypertension Brother Heart Brother passed from heart attack The review of systems data was entered by the nurse and reviewed by pa Nursing Notes: Kayleigh Bateman RN 04/21/2022 4:14 PM Signed REVIEW OF SYSTEMS: General: The patient denies fatigue, denies weight loss, denies weight gain, denies feeling hot, and denies feelings of cold. Eyes: The patient denies glaucoma, denies eye injury/surgery, wears glasses or contacts. Ear/Nose/Throat: The patient denies allergies, denies hayfever, denies ear infections, and denies bloody noses. Cardiovascular: The patient denies chest pain, denies heart disease, NOTES high blood pressure,NOTES cardiac stent, denies prior heart attack, denies irregular heart beat, NOTES high cholesterol, denies poor circulation, NOTES heart failure, other cardiac issues, denies claudication, denies cold feet, denies peripheral arterial stent. Respiratory: The patient denies tuberculosis, denies pneumonia, denies frequent cough, denies pulmonary embolism, denies shortness of breath, and denies coughing up blood. Gastrointestinal: The patient denies difficulty swallowing, denies acid reflux, denies ulcers, denies vomiting, denies jaundice/hepatitis, denies gallbladder problems, denies black or tarry stools, denies hemorrhoids, denies bleeding from rectum, denies diverticulitis, denies constipation, denies diarrhea, denies loss of stool control, and denies hernias. Kidney/Bladder: The patient denies kidney stones, denies urine infections, and denies bloody urine. Skin: The patient denies a history of skin cancer, denies bleeding/changing moles, and denies a history of skin rash. Neurologic: The patient denies a history of epilepsy/convulsions, denies headaches, denies head/spinal injuries, and denies stroke/TIA. Psychiatric: The patient denies psychiatric medications, denies depression, and denies voices, denies substance abuse. Endocrine: The patient denies thyroid disorders, NOTES diabetes, and denies hormonal problems. Hematologic: The patient denies a history of bruising, denies bleeding, and denies anemia, denies blood clots. Infections: The patient denies a history of measles and mumps, denies rheumatic fever, and denies sexually transmitted diseases. Musculoskeletal: The patient denies back pain/injury, denies back problems, denies sciatica, deniesknee/foot trouble, denies arthritis, or denies gout. When was patient's last Mammogram screening? N/A Last Colonoscopy: NONE Kayleigh Bateman RN PHYSICAL EXAMINATION: General: The patient is 51 year old male, well nourished, well hydrated in no acute distress. The patient is oriented to time, place, and person. VITALS: Blood pressure 130/82, pulse 95, temperature 36.5 C (97.7 F), height 177.8 cm (5' 10 ), weight 118.9 kg (262 lb 3.2 oz), SpO2 95 %. Body mass index is 37.62 kg/m . Head: Normal cephalic, atraumatic Eyes: pupils are equally round, sclera are clear/anicteric Neck is supple with no tracheal deviation Respiratory: Normal respiratory excursion and pattern. Abdominal exam: benign Extremities: no clubbing, cyanosis or edema. Neuro: non focal Psych: normal mood IMPRESSION: screening for colon cancer via colonoscopy PLAN: I have discussed the above with the patient. I have offered colonoscopy , possible biopsies I have explained the procedure to the patient. I have counseled the patient as to the risks of the procedure, including but not limited to: infection, bleeding, injury to any intrabdominal organs such as liver/spleen, perforation of the GI tract,inability to complete the procedure, complications of anesthesia, etc. - the patient understands. The patient wishes to proceed. I have answered all questions to the patient s satisfaction and the patient has no further questions. documented in this encounterMercy Health08-18-2022 Miscellaneous Notes* Brief Op Note - Brooke Deleon MD - 05/01/2022 10:15 AM EDT BRIEF OPERATIVE NOTE SURGERY DATE: 05/01/2022 Incision/Procedure Start Time: 9:53 cecal intubation time: 9:56 Incision Close/Procedure End Time: 10:11 Surgeon(s)/Proceduralist(s) and Applications Analyst(s): dorcas Procedures: Colonoscopy with polypectomy - hot snare Anesthesia: MAC Findings: right colon polyp - 1.5 cm Estimated Blood Loss: minimal Specimens: right colon polyp Complications: None Preop Diagnosis: screening for colon cancer Postop Diagnosis: right colon polyp, hemorrhoids SIGNATURE: Brooke Deleon MD PATIENT NAME: Dawit Martínez DATE: May 01, 2022 TIME: 10:13 AM documented in this encounterMercy Health08-08-2022 History of Present illness Narrative* Brooke Deleon MD - 04/21/2022 7:35 PM EDT HISTORY AND PHYSICAL Dawit Martínez 1970 REFERRING PHYSICIAN: Luz Elena Addison APRN.C* CHIEF COMPLAINT: Consult (Colonoscopy) HPI: The patient is a 51 year old male referred for endoscopy. Dawit is here for consideration of screening for colon cancer via colonoscopy The patient denies blood in stools, denies abdominal pain, and denies changes in bowel habits. The patient notes no colon cancer in immediate family. The patient has not had previous colonoscopy. PAST MEDICAL HISTORY Diagnosis Date Diabetes mellitus type II Hypertriglyceridemia 2011 severe Lactose intolerance Obesity Unspecified essential hypertension Essential hypertension PAST SURGICAL HISTORY: none Current Outpatient Medications Medication Sig atorvastatin (LIPITOR) 40 mg tablet Take 1 tablet by mouth once daily. TRUE METRIX GLUCOSE METER use to test blood sugar lisinopril (ZESTRIL, PRINIVIL) 5 mg tablet Take 5 mg by mouth once daily. carvedilol (COREG) 25 mg tablet Take 25 mg by mouth twice daily. Insulin [place], Disposable, (BD ULTRA-FINE PRESLEY PEN NEEDLE) 32 gauge x 5/32 Use one needle for each dose, 1 times daily. Cholecalciferol, Vitamin D3, 25 mcg (1,000 unit) cap Take 1 capsule by mouth once daily. potassium chloride (K-TAB) 10 mEq tablet Take 10 mEq by mouth twice daily. Lancets lancets Test blood sugar(s) 1 times daily. Dx: Type 2 DM - Controlled E11.9 Insulin: No Aspirin 81 mg Tab Take 1 tablet by mouth once daily. Take with food. ticagrelor (BRILINTA) 90 mg tablet Take 1 tablet by mouth twice daily. torsemide (DEMADEX) 20 mg tablet Take 1 tablet by mouth twice daily. blood sugar diagnostic (BLOOD GLUCOSE TEST) test strip Test blood sugar(s) 2 times daily. Dx: Type 2 DM - Controlled E11.9 Insulin: yes empagliflozin (JARDIANCE) 25 mg tablet Take 1 tablet by mouth daily with breakfast. dulaglutide (TRULICITY) 0.75 mg/0.5 mL pen injector Inject 0.75 mg subcutaneously one time a week. Inject dose once per week. Discard Pen After metFORMIN (GLUCOPHAGE) 1,000 mg tablet Take 1 tablet by mouth twice daily. Lancets lancets Tests twice a day. insulin requiring. peg 3350-Electrolytes (GOLYTELY) 236-22.74-6.74 -5.86 gram suspension Take 4,000 mL by mouth one time only for 1 dose. Refer to printed prep instructions from your provider. ALLERGIES: Niacin PERSONAL HISTORY: Social History Tobacco Use Smoking status: Former Packs/day: 1.00 Types: Cigarettes Quit date: 06/20/2020 Years since quittin.8 Smokeless tobacco: Never Tobacco comments: less than 1/2 pack per day Vaping Use Vaping Use: Never used Substance Use Topics Alcohol use: No Drug use: No FAMILY HISTORY Problem Relation Age of Onset Cancer Mother Hypertension Mother Hypertension Father Diabetes Father Stroke Father - heart attack None Sister Diabetes Brother Hypertension Brother Heart Brother passed from heart attack The review of systems data was entered by the nurse and reviewed by me Nursing Notes: Kayleigh Bateman RN 04/21/2022 4:14 PM Signed REVIEW OF SYSTEMS: General: The patient denies fatigue, denies weight loss, denies weight gain, denies feeling hot, and denies feelings of cold. Eyes: The patient denies glaucoma, denies eye injury/surgery, wears glasses or contacts. Ear/Nose/Throat: The patient denies allergies, denies hayfever, denies ear infections, and denies bloody noses. Cardiovascular: The patient denies chest pain, denies heart disease, NOTES high blood pressure,NOTES cardiac stent, denies prior heart attack, denies irregular heart beat, NOTES high cholesterol, denies poor circulation, NOTES heart failure, other cardiac issues, denies claudication, denies cold feet, denies peripheral arterial stent. Respiratory: The patient denies tuberculosis, denies pneumonia, denies frequent cough, denies pulmonary embolism, denies shortness of breath, and denies coughing up blood. Gastrointestinal: The patient denies difficulty swallowing, denies acid reflux, denies ulcers, denies vomiting, denies jaundice/hepatitis, denies gallbladder problems, denies black or tarry stools, denies hemorrhoids, denies bleeding from rectum, denies diverticulitis, denies constipation, denies diarrhea, denies loss of stool control, and denies hernias. Kidney/Bladder: The patient denies kidney stones, denies urine infections, and denies bloody urine. Skin: The patient denies a history of skin cancer, denies bleeding/changing moles, and denies a history of skin rash. Neurologic: The patient denies a history of epilepsy/convulsions, denies headaches, denies head/spinal injuries, and denies stroke/TIA. Psychiatric: The patient denies psychiatric medications, denies depression, and denies voices, denies substance abuse. Endocrine: The patient denies thyroid disorders, NOTES diabetes, and denies hormonal problems. Hematologic: The patient denies a history of bruising, denies bleeding, and denies anemia, denies blood clots. Infections: The patient denies a history of measles and mumps, denies rheumatic fever, and denies sexually transmitted diseases. Musculoskeletal: The patient denies back pain/injury, denies back problems, denies sciatica, deniesknee/foot trouble, denies arthritis, or denies gout. When was patient's last Mammogram screening? N/A Last Colonoscopy: NONE Kayleigh Bateman RN PHYSICAL EXAMINATION: General: The patient is 51 year old male, well nourished, well hydrated in no acute distress. The patient is oriented to time, place, and person. VITALS: Blood pressure 130/82, pulse 95, temperature 36.5 C (97.7 F), height 177.8 cm (5' 10 ), weight 118.9 kg (262 lb 3.2 oz), SpO2 95 %. Body mass index is 37.62 kg/m . Head: Normal cephalic, atraumatic Eyes: pupils are equally round, sclera are clear/anicteric Neck is supple with no tracheal deviation Respiratory: Normal respiratory excursion and pattern. Abdominal exam: benign Extremities: no clubbing, cyanosis or edema. Neuro: non focal Psych: normal mood Assessment IMPRESSION: screening for colon cancer via colonoscopy PLAN: I have discussed the above with the patient. I have offered colonoscopy , possible biopsies I have explained the procedure to the patient. I have counseled the patient as to the risks of the procedure, including but not limited to: infection, bleeding, injury to any intrabdominal organs such as liver/spleen, perforation of the GI tract,inability to complete the procedure, complications of anesthesia, etc. - the patient understands. The patient was offered a surgery/procedure at a [facility] facility. The provider and patient have discussed in detail the risk of exposure to and/or potential harm posed by the COVID-19 viruswith having a surgery/procedure at this time versus the risk of delaying the surgery/procedure. It is not possible to know either the risk of delaying the surgery or procedure or chance of getting aninfection with perfect accuracy, but a joint decision was made between the patient and the providerto proceed at this time with the scheduled surgery/procedure. I have explained to the patient the difference between IV conscious sedation and MAC anesthesia - and I have offered either, according to the patient's wishes. I have explained that with IV conscioussedation there is no anesthesia provider available and therefore there is a limitation of the amount of IV medications that can be given and that the patient may wake up in the middle of the procedure and/or experience pain/discomfort during the procedure. Further discussion was done and the patient was given the opportunity to ask questions and all questions were answered. The patient chooses MAC anesthesia. Patient was counseled that if there are changes in his/her medical condition, to let the office know if surgery should proceed. If there are changes in patient's medical condition from time of this encounter to the day of the procedure that preclude anesthesia, patient may have procedure cancelled for patient's safety. The patient wishes to proceed. I have answered all questions to the patient s satisfaction and the patient has no further questions. Diagnoses: (Z12.11) Screening for colon cancer I have confirmed and edited as necessary, the PFSH and ROS obtained by others. Consultation requested by Luz Elena Addison for an opinion regarding patient's screening for colon cancer. My final recommendations will be communicated back to the requesting physician by way of sharedMedical record or letter to requesting physician via US mail. Return to Clinic: The patient is scheduled for colonoscopy at [facility] on 05/01/2022. Medical Decision Making: Risk: Low: Low risk from testing/treatment Medical Decision Making Level: 2 - Straightforward Brooke Deleon MD documented in this encounterMer[facility]08-08-2022 Miscellaneous Notes* Telephone Encounter - Corinne Marcos - 04/21/2022 4:33 PM EDT 05/01 [place] [place] documented in this encounterMercy Health08-08-2022 Instructions* Patient Instructions* Brooke Deleon MD - 04/21/2022 4:20 PM EDT Images from the original note were not included. Bowel Preparation Instructions for: Golytely, Nulytely, Trilyte or Colyte (polyethylene glycol 3350and electrolytes) IF YOU DO NOT FOLLOW THESE DIRECTIONS, YOUR COLONOSCOPY WILL BE CANCELLED. [place] Instructions: Your bowel must be empty so that your doctor can clearly view your colon. Follow all of the instructions in this handout EXACTLY as they are written. Do NOT eat any solid food the ENTIRE day before your colonoscopy. Drink only clear liquids. Buy your bowel preparation at least 5 days before your colonoscopy. TRANSPORTATION on the Day of Your Exam A responsible person MUST be present with you at Check In prior to your colonoscopy and REMAIN in the endoscopy area until you are discharged. You are NOT ALLOWED to drive, take a taxi or bus, or leave the Endoscopy Center ALONE. If you do not have a responsible caterpillar driver (family member or friend) with you to take you home, your exam cannot be done with sedation and will be cancelled. Please bring a list of all of your current medications, including any Over-the Counter medications with you. Medications If you take insulin, diabetic medications or blood thinners such as Coumadin (warfarin), Plavix (clopidogrel), Ticlid (ticlopidine hydrochloride), Agrylin (anagrelide), Xarelto (Rivaroxaban), Pradaxa(Dabigatran), Eliquis (Apixaban), and Effient (Prasugrel). You MUST call the doctors who orders those medicines for instructions on altering the dosage before your colonoscopy. All other medications should be taken the day of the exam with a sip of water including ASPIRIN. Five (5) Days Before Your Colonoscopy Do NOT take medicines that stop diarrhea - such as Imodium, Kaopectate, or Pepto Bismol. Do NOT take fiber supplements - such as Metamucil, Citrucel, or Perdiem. Do NOT take products that contain iron - such as multi-vitamins (the label lists what is in the products). Do NOT take Vitamin E. Buy the prescription bowel preparation solution at your local pharmacy or drugstore pharmacy. 08/2019 Bowel Preparation Instructions for: Golytely, Nulytely, Trilyte or Colyte (polyethylene glycol 3350and electrolytes) Three (3) Days Before Your Colonoscopy Do NOT eat high-fiber foods - such as popcorn, beans, seeds (flax, sunflower, quinoa), multigrain bread, nuts, salad/vegetables, or fresh and dried fruit. One (1) Day Before Your Colonoscopy Only drink clear liquids the ENTIRE DAY before your colonoscopy. Do NOT eat any solid foods. Drink at least 8 ounces of clear liquids every hour after waking up. The clear liquids you can drink include: Clear Liquid (NO RED LIQUIDS) DO NOT DRINK Gatorade, Pedialyte or Powerade Clear broth or bouillon Coffee or tea (no milk or non-dairy creamer) Carbonated and non-carbonated soft drinks Demario-Aid or other fruit flavored drinks Strained fruit juices (no pulp) Jell-O, popsicles, hard candy Water Alcohol Milk or non-dairy creamers Noodles or vegetables in soup Juice with pulp Liquid you cannot see through Do not use tobacco/vaping products The bowel preparation solution will be consumed in two parts. Mix the solution the evening before your colonoscopy and refrigerate before drinking. You may add the flavor pack that came with the bowel preparation. Do NOT add ice, sugar or any other flavorings to the solution. Part 1 At 6:00 PM - Evening before your colonoscopy Drink an 8-oz glass of bowel preparation every 10 minutes for a total of 8 glasses. You may continue to drink clear liquids until midnight. Part 2 On the day of your colonoscopy you may drink clear liquids up to (three) 3 hours before your procedure. 4 1/2 hours before your colonoscopy Drink an 8-oz glass of bowel preparation every 10 minutes for a total of 8 glasses. Fifteen (15) minutes later, drink an 8-oz glass of clear liquids every 15 minutes for a total of 2 glasses. You may continue to drink clear liquids up to (three) 3 hours before your exam. 2 08/2019 documented in this encounterMercy Health08-08-2022 Nurse Note* Kayleigh Bateman RN - 04/21/2022 4:10 PM EDT REVIEW OF SYSTEMS: General: The patient denies fatigue, denies weight loss, denies weight gain, denies feeling hot, and denies feelings of cold. Eyes: The patient denies glaucoma, denies eye injury/surgery, wears glasses or contacts. Ear/Nose/Throat: The patient denies allergies, denies hayfever, denies ear infections, and denies bloody noses. Cardiovascular: The patient denies chest pain, denies heart disease, NOTES high blood pressure,NOTES cardiac stent, denies prior heart attack, denies irregular heart beat, NOTES high cholesterol, denies poor circulation, NOTES heart failure, other cardiac issues, denies claudication, denies cold feet, denies peripheral arterial stent. Respiratory: The patient denies tuberculosis, denies pneumonia, denies frequent cough, denies pulmonary embolism, denies shortness of breath, and denies coughing up blood. Gastrointestinal: The patient denies difficulty swallowing, denies acid reflux, denies ulcers, denies vomiting, denies jaundice/hepatitis, denies gallbladder problems, denies black or tarry stools, denies hemorrhoids, denies bleeding from rectum, denies diverticulitis, denies constipation, denies diarrhea, denies loss of stool control, and denies hernias. Kidney/Bladder: The patient denies kidney stones, denies urine infections, and denies bloody urine. Skin: The patient denies a history of skin cancer, denies bleeding/changing moles, and denies a history of skin rash. Neurologic: The patient denies a history of epilepsy/convulsions, denies headaches, denies head/spinal injuries, and denies stroke/TIA. Psychiatric: The patient denies psychiatric medications, denies depression, and denies voices, denies substance abuse. Endocrine: The patient denies thyroid disorders, NOTES diabetes, and denies hormonal problems. Hematologic: The patient denies a history of bruising, denies bleeding, and denies anemia, denies blood clots. Infections: The patient denies a history of measles and mumps, denies rheumatic fever, and denies sexually transmitted diseases. Musculoskeletal: The patient denies back pain/injury, denies back problems, denies sciatica, deniesknee/foot trouble, denies arthritis, or denies gout. When was patient's last Mammogram screening? N/A Last Colonoscopy: NONE Kayleigh aBteman RN documented in this encounterMercy Health08-08-2022 Miscellaneous Notes* Telephone Encounter - Destinee Wells Ks - 04/21/2022 1:20 PM EDT Last office visit: 04/14/22 F/u scheduled: 10/20/22 Destinee Wells Ma documented in this encounterMercy Health08-03-2022 Miscellaneous Notes* Telephone Encounter - José Antonio Liang LPN - 04/16/2022 9:04 AM EDT Patient phones requesting refills as follows: Pending Prescriptions Disp Refills ATORVASTATIN 40 MG TABLET 30 tablet 11 Sig: Take 1 tablet by mouth once daily. SUE: No FELIX 04/14/22 NOV 10/20/22 Please review and advise. José Antonio Liang LPN documented in this encounterMercy Health08-01-2022 Instructions* Patient Instructions* Luz Elena Addison APRN.CNP - 04/14/2022 5:22 PM EDT 1. Get fasting labwork (10-12 hour fast. You can have water and black coffee). 2. Schedule with general surgery for colonoscopy. 3. Continue same medications. 4. Recheck in 6 months. documented in this encounterMercy Health08-01-2022 History of Present illness Narrative* Luz Elena Addison APRN.CNP - 04/14/2022 5:02 PM EDT This is a 51 year old male who presents today with: Patient presents with: Recheck: 6 month follow up HISTORY OF PRESENT ILLNESS: Dawit Martínez is a 51 year old male. Patient presents with: Recheck: 6 month follow up Pt presents today for 6 month follow-up. No problems/concerns. DM: Reports overall feeling well. Medication side effects: No. Home sugar checks: 107-130 -- fasting -- every other day. Hypoglycemic spells: No. 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 . Unexpected weight loss: No. Polyuria, polydipsia: Yes. I'm always thirsty. Vision Changes: No. - last eye visit 8 months ago. Foot lesions or numbness or pain: No. HYPERLIPIDEMIA: Patient is taking medications: Yes. Patient is watching diet: Yes. Patient denies myalgias: Yes. Patient denies gi upset: Yes HTN: Patient is compliant with meds Yes Monitors bp at home: No. Denies side effects: Yes. Chest pain: No. Dyspnea: No. Edema: Not usually -- a little bit today but refers related to his shoes. . Palpitations: No. Syncope: No. Headache: No. Dizziness: No. ERROL Hx of dx Does not use cpap. Refers no problems with daytime fatigue. Cardiomyopathy: Follows with [facility]. Depression Screening 04/11/2019 11/17/2020 04/14/2022 PHQ-2 Score 0 0 0 Depression screening tool completed and reviewed. Based on score and interview, patient is not at risk for depression. Screening tool discussed with patient, and I recommended no further interventionat this time. PAST MEDICAL HISTORY: PAST MEDICAL HISTORY Diagnosis Date Diabetes mellitus type II Hypertriglyceridemia 2011 severe Lactose intolerance Obesity Unspecified essential hypertension Essential hypertension No past surgical history on file. ALLERGIES Niacin MEDICATIONS Current Outpatient Medications Medication Sig Lancets lancets Tests twice a day. insulin requiring. torsemide (DEMADEX) 20 mg tablet Take 1 tablet by mouth twice daily. metFORMIN (GLUCOPHAGE) 1,000 mg tablet Take 1 tablet by mouth twice daily. ticagrelor (BRILINTA) 90 mg tablet Take 1 tablet by mouth twice daily. dulaglutide (TRULICITY) 0.75 mg/0.5 mL pen injector Inject 0.75 mg subcutaneously one time a week. Inject dose once per week. Discard Pen After empagliflozin (JARDIANCE) 25 mg tablet Take 1 tablet by mouth daily with breakfast. TRUE METRIX GLUCOSE METER use to test blood sugar lisinopril (ZESTRIL, PRINIVIL) 5 mg tablet Take 5 mg by mouth once daily. carvedilol (COREG) 25 mg tablet Take 25 mg by mouth twice daily. Insulin [place], Disposable, (BD ULTRA-FINE PRESLEY PEN NEEDLE) 32 gauge x 5/32 Use one needle for each dose, 1 times daily. blood sugar diagnostic (BLOOD GLUCOSE TEST) test strip Test blood sugar(s) 2 times daily. Dx: Type 2 DM - Controlled E11.9 Insulin: yes atorvastatin (LIPITOR) 40 mg tablet Take 1 tablet by mouth once daily. Cholecalciferol, Vitamin D3, 25 mcg (1,000 unit) cap Take 1 capsule by mouth once daily. potassium chloride (K-TAB) 10 mEq tablet Take 10 mEq by mouth twice daily. Lancets lancets Test blood sugar(s) 1 times daily. Dx: Type 2 DM - Controlled E11.9 Insulin: No Aspirin 81 mg Tab Take 1 tablet by mouth once daily. Take with food. CPAP Supplies for Auto PAP @ 5-20 cm of water with humidification. Mask (per patient preference) optional chin strap (if indicated) , filters, heated tubing (SUE), humidifier and lifetime supplies. No current facility-administered medications for this visit. FAMILY HISTORY Problem Relation Age of Onset Hypertension Mother Hypertension Father Diabetes Father Stroke Father - heart attack None Sister Diabetes Brother Hypertension Brother Heart Brother passed from heart attack Social History Tobacco Use Smoking status: Former Smoker Packs/day: 1.00 Types: Cigarettes Quit date: 06/20/2020 Years since quittin.8 Smokeless tobacco: Never Used Tobacco comment: less than 1/2 pack per day Substance Use Topics Alcohol use: No Drug use: No EXAM: BP 138/82 Pulse 90 Resp 18 Wt 120.2 kg (265 lb) SpO2 94% BMI 38.02 kg/m PHYSICAL EXAM: General Appearance: Well appearing, alert, in no acute distress, well-hydrated, well nourished.. Skin: Skin color, texture, turgor normal, no suspicious rashes or lesions. Head: Normocephalic, no masses, lesions, tenderness or abnormalities. Eyes: Anicteric sclera. Extraocular movements are intact. . Neck: Supple, no adenopathy; thyroid symmetric, normal size, no bruits. Lungs: Lungs clear to auscultation. No wheezing, rhonchi, rales.. Heart: RRR without murmur, gallop, or rubs. No ectopy. Abdomen: Abdomen soft, non-tender. Bowel sounds normal. No masses, organomegaly. Extremities: No deformities, edema, skin discoloration, clubbing or cyanosis. Good capillary refill. Neurologic: Gait normal. Feet:Shoes and socks removed, normal distal pulses and sensitive to 10 gm monofilament ASSESSMENT/PLAN: 1. Type 2 diabetes mellitus without complication, without long-term current use of insulin (HCC) - ICD9: 250.00, ICD10: E11.9 (primary diagnosis) Controlled on last check. Due for labs. - Continue current medications - HGB A1C 2. Special screening examination for viral disease - ICD9: V73.99, ICD10: Z11.59 - HEP C AB IA W/CONF SCRN 3. Screening for HIV (human immunodeficiency virus) - ICD9: V73.89, ICD10: Z11.4 - HIV 1 2 COMBO(AG/AB),WITH REFLEX TO DIFFERENTIATION 4. Hyperlipidemia with target LDL less than 100 - ICD9: 272.4, ICD10: E78.5 - to be determined upon return of lab results - Continue current medication. - LIPID PANEL BASIC 5. Primary hypertension - ICD9: 401.9, ICD10: I10 - fair control - Continue current medication(s) - Recommended regular aerobic exercise. - Recommend home blood pressure monitoring, to bring results in on next visit - Goal of BP <130/80 - COMP METABOLIC PANEL 6. Screening for colon cancer - ICD9: V76.51, ICD10: Z12.11 - CONSULT TO GENERAL SURGERY Discussed treatment plan and patient voices understanding. Patient's questions answered appropriately. Medications and potential side effects were discussed and patient voices understanding. Return to the office as scheduled or as needed for worsening/no improvement. Luz Elena Addison APRN.FORESTRY TREE PRUNER The patient indicates understanding of these issues and agrees with the plan. documented in this encounterMercy Health05-09-2022 Miscellaneous Notes* Telephone Encounter - Nancy Moser Ma - 01/20/2022 3:40 PM EDT Request completed and faxed. Confirmed and filed. Nancy Moser Ma * Telephone Encounter - Nancy Moser Ma - 01/20/2022 2:53 PM EDT Type of letter/form/fax request - Medical Necessity Form received from Oxana Valdez on 2c floor and placed on JEREMIAH Lagunas's desk for completion. Completed form needs to be faxed to [phone]. Route to VERONICA when form completed for processing documented in this encounterMercy Health07-05-2011 History of Past illness Narrative* Problem Noted Date Resolved Date Diabetes 03/18/2011 08/06/2020 documented as of this encounter (statuses as of 01/20/2022) [facility] Narrative* Problem Noted Date Resolved Date Diabetes 03/18/2011 08/06/2020 documented as of this encounter (statuses as of 04/14/2022) [facility] Narrative* Problem Noted Date Resolved Date Diabetes 03/18/2011 08/06/2020 documented as of this encounter (statuses as of 04/16/2022) [facility] Narrative* Problem Noted Date Resolved Date Diabetes 03/18/2011 08/06/2020 documented as of this encounter (statuses as of 04/21/2022) [facility] Narrative* Problem Noted Date Resolved Date Diabetes 03/18/2011 08/06/2020 documented as of this encounter (statuses as of 04/24/2022) [facility] Narrative* Problem Noted Date Resolved Date Diabetes 03/18/2011 08/06/2020 documented as of this encounter (statuses as of 05/02/2022) [facility] Narrative* Problem Noted Date Resolved Date Diabetes 03/18/2011 08/06/2020 documented as of this encounter (statuses as of 05/02/2022) [facility] Narrative* Problem Noted Date Resolved Date Diabetes 03/18/2011 08/06/2020 documented as of this encounter (statuses as of 05/05/2022) [facility] Narrative* Problem Noted Date Resolved Date Diabetes 03/18/2011 08/06/2020 documented as of this encounter (statuses as of 05/12/2022) [place] [address]-05-2011 History of Past illness Narrative* Problem Noted Date Resolved Date Diabetes 03/18/2011 08/06/2020 documented as of this encounter (statuses as of 05/22/2022) [address] History of Past illness Narrative* Problem Noted Date Resolved Date Diabetes 03/18/2011 08/06/2020 documented as of this encounter (statuses as of 08/28/2022) [facility] N[facility]* Problem Noted Date Resolved Date Diabetes 03/18/2011 08/06/2020 documented as of this encounter (statuses as of 10/07/2022) [facility] Narrative* Problem Noted Date Resolved Date Diabetes 03/18/2011 08/06/2020 documented as of this encounter (statuses as of 12/03/2022) [facility] note* Diagnosis Type 2 diabetes mellitus without complication, without long-term current use of insulin (HCC)- Primary Special screening examination for viral disease Special screening examination for unspecified viral disease Screening for HIV (human immunodeficiency virus) Special screening examination for other specified viral diseases Hyperlipidemia with target LDL less than 100 Other and unspecified hyperlipidemia Primary hypertension Unspecified essential hypertension Screening for colon cancer Special screening for malignant neoplasms, colon [facility] [place] [facility]* Diagnosis Screening for colon cancer Special screening for malignant neoplasms, colon documented [facility] [place] [facility]* Diagnosis Screening for colon cancer- Primary Special screening for malignant neoplasms, colon Special screening for malignant neoplasms, colon documented in this encounter [facility] note* Diagnosis Special screening for malignant neoplasms, colon- Primary [facility] [place] [facility]* Diagnosis Primary hypertension- Primary Unspecified essential hypertension Hyperlipidemia with target LDL less than 100 Other and unspecified hyperlipidemia Renal insufficiency Unspecified disorder of kidney and ureter Cardiomyopathy, unspecified type (HCC) Congestive heart failure, unspecified HF chronicity, unspecified heart failure type (HCC) Type 2 diabetes mellitus without complication, without long-term current use of insulin (HCC) [facility] [place] [facility]* Diagnosis Type 2 diabetes mellitus without complication, without long-term current use of insulin (HCC) documented [facility] [place] [facility]* Diagnosis Diabetic nephropathy associated with type 2 diabetes mellitus (HCC)- Primary [facility]* Diagnosis Type 2 diabetes mellitus without complication, without long-term current use of insulin (HCC) documented in this encounter [facility] for referral (narrative)* Outpatient Procedure (Routine) - Closed Specialty Diagnoses / Procedures Referred By Jennie metzger Referred To Contact [facility] Diagnoses Special screening for malignant neoplasms, colon Procedures COLONOSCOPY SCREENING COLONOSCOPY FLX DX W/COLLJ SPEC WHEN Brooke Macdonald MD [address] [place] [address] [address] Referral ID Status Reason Start Date Expiration Date V isits Requested Visits Authorized [id number] Closed Auto-Generate d Referral 04/21/2022 04/21/2023 1 1 [facility] for referral (narrative)* Outpatient Procedure (Routine) - Closed Specialty Diagnoses / Procedures Referred By Jennie metzger Referred To Contact [facility] Diagnoses Special screening for malignant neoplasms, colon Procedures COLONOSCOPY SCREENING COLONOSCOPY FLX DX W/COLLJ SPEC WHEN Brooke Macdonald MD [address] [place] [address] [address] Referral ID Status Reason Start Date Expiration Date V isits Requested Visits Authorized [id number] Closed Auto-Generate d Referral 04/21/2022 04/21/2023 1 1 [facility] for visit Narrative* Outpatient Procedure (Routine) - Closed Specialty Diagnoses / Procedures Referred By Jennie metzger Referred To Contact [facility] Diagnoses Special screening for malignant neoplasms, colon Procedures COLONOSCOPY SCREENING COLONOSCOPY FLX DX W/COLLJ SPEC WHEN Brooke Macdonald MD [address] [place] [address] [facility] [address] [address] Referral ID Status Reason Start Date Expiration Date V isits Requested Visits Authorized [id number] Closed Auto-Generate d Referral 04/21/2022 04/21/2023 1 1 [facility] Summary Purpose Family History No Family History Records FoundNo Family History Records FoundNo Family History Records FoundNo Family History Records Found Advance Directives No Advanced Directives Records FoundNo Advanced Directives Records FoundNo Advanced Directives Records FoundNo Advanced Directives Records Found Reason for Referral Specialty Diagnoses / Procedures Referred By Contac t Referred To Contact General Surgery Diagnoses Screening for colon cancer Procedures CONSULT TO GENERAL SURGERY OFFICE/OUTPATIENT [facility] 60-74 MINUTES Luz Elena Addison, SENIOR STORAGE ENGINEER.FORESTRY TREE PRUNER [address] [place] [address] Referral ID Status Reason Start Date Expiration Date Visits Requested Visits Authorized [id number] Authorized PCP Requested Referral 04/14/2022 04/14/2023 1 1 Medications Administered Section Inactive Administered Medications - up to 3 most recent administrations Medication Order MAR Action Action Date Dose Rate Site lactated ringers iv infusion 75 mL/hr, INTRAVENOUS, CONTINUOUS, Starting on Carrie 05/01/22 at 0930, Until Carrie 05/01/22 at 1042, Preprocedure Continued by Anesthesia 05/01/2022 9:47 AM EDT 75 mL/hr Additional Source Comments (unrecognized sect ion and content) No Status Records FoundNo Status Records FoundNo Status Records FoundNo Status Records Found INFORMATION SOURCE (unrecogn ized section and content) DATE CREATED AUTHOR AUTHOR'S ORGANIZ ATION 05/07/2022 [facility] DATE CREATED AUTHOR AUTHOR'S ORGANIZ ATION 05/07/2022 [facility] DATE CREATED AUTHOR AUTHOR'S ORGANIZ ATION 09/13/2023 [facility] Source Comments (unrecognize d section and content) In the event this informatio n is protected by the Federal Confidentiality of Alcohol and Drug Abuse Patient Records regulations: The Federal rules restrict any use of the information to criminally investigate or prosecute any alcohol or drug abuse patient.[facility] the event this information is protected by the Federal Confidentiality of Alcohol and Drug Abuse Patient Records regulations: The Federal rules restrict any use of the information to criminally investigate or prosecute any alcohol or drug abuse patient.[facility] HealthIn the event this information is protected by the Federal Confidentiality of Alcohol and Drug Abuse Patient Records regulations: The Federal rules restrict any use of the information to criminally investigate or prosecute any alcohol or drug abuse patient.[facility] the event this information is protected by the Federal Confidentiality of Alcohol and Drug Abuse Patient Records regulations: The Federal rules restrict any use of the information to criminally investigate or prosecute any alcohol or drug abuse patient.[facility] HealthIn the event this information is protected by the Federal Confidentiality of Alcohol and Drug Abuse Patient Records regulations: The Federal rules restrict any use of the information to criminally investigate or prosecute any alcohol or drug abuse patient.[facility] HealthIn the event this information is protected by the Federal Confidentiality of Alcohol and Drug Abuse Patient Records regulations: The Federal rules restrict any use of the information to criminally investigate or prosecute any alcohol or drug abuse patient.[facility] HealthIn the event this information is protected by the Federal Confidentiality of Alcohol and Drug Abuse Patient Records regulations: The Federal rules restrict any use of the information to criminally investigate or prosecute any alcohol or drug abuse patient.[facility] HealthIn the event this information is protected by the Federal Confidentiality of Alcohol and Drug Abuse Patient Records regulations: The Federal rules restrict any use of the information to criminally investigate or prosecute any alcohol or drug abuse patient.[facility] HealthIn the event this information is protected by the Federal Confidentiality of Alcohol and Drug Abuse Patient Records regulations: The Federal rules restrict any use of the information to criminally investigate or prosecute any alcohol or drug abuse patient.[facility] HealthIn the event this information is protected by the Federal Confidentiality of Alcohol and Drug Abuse Patient Records regulations: The Federal rules restrict any use of the information to criminally investigate or prosecute any alcohol or drug abuse patient.[facility] HealthIn the event this information is protected by the Federal Confidentiality of Alcohol and Drug Abuse Patient Records regulations: The Federal rules restrict any use of the information to criminally investigate or prosecute any alcohol or drug abuse patient.[facility] HealthIn the event this information is protected by the Federal Confidentiality of Alcohol and Drug Abuse Patient Records regulations: The Federal rules restrict any use of the information to criminally investigate or prosecute any alcohol or drug abuse patient.[facility] HealthIn the event this information is protected by the Federal Confidentiality of Alcohol and Drug Abuse Patient Records regulations: The Federal rules restrict any use of the information to criminally investigate or prosecute any alcohol or drug abuse patient.[facility] HealthIn the event this information is protected by the Federal Confidentiality of Alcohol and Drug Abuse Patient Records regulations: The Federal rules restrict any use of the information to criminally investigate or prosecute any alcohol or drug abuse patient.[facility] HealthIn the event this information is protected by the Federal Confidentiality of Alcohol and Drug Abuse Patient Records regulations: The Federal rules restrict any use of the information to criminally investigate or prosecute any alcohol or drug abuse patient.[facility] HealthIn the event this information is protected by the Federal Confidentiality of Alcohol and Drug Abuse Patient Records regulations: The Federal rules restrict any use of the information to criminally investigate or prosecute any alcohol or drug abuse patient.[facility] HealthIn the event this information is protected by the Federal Confidentiality of Alcohol and Drug Abuse Patient Records regulations: The Federal rules restrict any use of the information to criminally investigate or prosecute any alcohol or drug abuse patient.[facility] HealthIn the event this information is protected by the Federal Confidentiality of Alcohol and Drug Abuse Patient Records regulations: The Federal rules restrict any use of the information to criminally investigate or prosecute any alcohol or drug abuse patient.[facility] HealthIn the event this information is protected by the Federal Confidentiality of Alcohol and Drug Abuse Patient Records regulations: The Federal rules restrict any use of the information to criminally investigate or prosecute any alcohol or drug abuse patient.[facility] Reason for Visit (unrecogniz ed section and content) Reason Comments Recheck 6 month follow up Reason Onset Date Comments Refill Request 04/16/2022 Reason Onset Date Comments Refill Request 04/20/2022 Reason Comments Consult Colonoscopy Specialty Diagnoses / Procedures Referred By Jennie metzger Referred To Contact General Surgery Diagnoses Screening for colon cancer Procedures CONSULT TO GENERAL SURGERY OFFICE/OUTPATIENT NEW HIGH MDM 60-74 MINUTES Luz Elena Addison APRN.FORE[employer]Y TREE PRUNER [address] [place] [address] Referral ID Status Reason Start Date Expiration Date V isits Requested Visits Authorized [id number] Closed PCP Requested Referral 04/14/2022 04/14/2023 1 1 Reason Comments Results Reason Comments 05/01 COLON LODI Reason Comments Lab Orders Reason Onset Date Comments Refill Request 10/07/2022 Reason Comments Patient Question Reason Onset Date Comments Refill Request 04/01/2023 Reason Onset Date Comments Refill Request 05/04/2023 Reason Onset Date Comments Refill Request 05/06/2023 Reason Comments Erroneous encounter-disregard Reason Onset Date Comments Refill Request 06/04/2023 Reason Onset Date Comments Refill Request 07/20/2023 Care Teams (unrecognized sec tion and content) Behavioral Consultant Relationship Specialty Start Date End Date Tor Jennings MD [address] [place] [address] PCP - General Family Practice 12/06/12 Behavioral Consultant Relationship Specialty Start Date End Date Tor Jennings MD [address] [place] [address] PCP - General Family Practice 12/06/12 Behavioral Consultant Relationship Specialty Start Date End Date Tor Jennings MD [address] [place], [place] [address] PCP - General Family Practice 12/06/12 Behavioral Consultant Relationship Specialty Start Date End Date Tor Jennings MD [address] [place] [address] PCP - General Family Practice 12/06/12 Behavioral Consultant Relationship Specialty Start Date End Date Tor Jennings MD [address] [place], [place] [address] PCP - General Family Practice 12/06/12 Behavioral Consultant Relationship Specialty Start Date End Date Tor Jennings MD [address] [place] [address] PCP - General Family Practice 12/06/12 Behavioral Consultant Relationship Specialty Start Date End Date Tor Jennings MD [address] [place] [address] PCP - General Family Practice 12/06/12 Behavioral Consultant Relationship Specialty Start Date End Date Tor Jennings MD [address] [place] [address] PCP - General Family Medicine 12/06/12 Behavioral Consultant Relationship Specialty Start Date End Date Tor Jennings MD [address] [place] [address] PCP - General Family Medicine 12/06/12 Behavioral Consultant Relationship Specialty Start Date End Date Tor Jennings MD [address] [place] [address] PCP - General Family Medicine 12/06/12 Behavioral Consultant Relationship Specialty Start Date End Date Tor Jennings MD [address] [place] [address] PCP - General Family Medicine 12/06/12 Behavioral Consultant Relationship Specialty Start Date End Date Tor Jennings MD [address] [place] [address] PCP - General Family Medicine 12/06/12 Behavioral Consultant Relationship Specialty Start Date End Date Tor Jennings MD [address] [place] [address] PCP - General Family Medicine 12/06/12 Behavioral Consultant Relationship Specialty Start Date End Date Tor Jennings MD [address] [place] [address] PCP - General Family Medicine 12/06/12 FOR RECORDS PERTAINING TO PATIENTS WHO ARE OR HAVE BEEN ENROLLED IN A CHEMICAL DEPENDENCY/SUBSTANCEABUSE PROGRAM, SOME INFORMATION MAY BE OMITTED. This clinical summary was aggregated from multiple sources. Caution should be exercised in using it in the provision of clinical care. This summary normalizes information from multiple sources, and as a consequence, information in this document may materially change the coding, format and clinical context of patient data. In addition, data may be omitted in some cases. CLINICAL DECISIONS SHOULD BE BASED ON THE PRIMARY CLINICAL RECORDS. [facility] [employer] [facility]. provides no warranty or guarantee of the accuracy or completeness of information in this document.
--- NOTE | 2023-10-01 16:18 | STRESSREP ---
Stress Test Report Exercise myocardial perfusion stress test. 52-year-old man with a history of syncope Stress protocol: Resting EKG demonstrates sinus bradycardia with a rate of 57 bpm resting blood pressure is 150/92 mmHg. The patient exercised according to the regular Dima protocol for a total duration of 5 minutes and 16 seconds attaining a maximum heart rate of 160 bpm which was 95% of maximum predicted heart rate; the maximum workload was 7 metabolic equivalents. At rest there were no ST or T wave changes noted to suggest ischemia and at peak exercise upsloping ST changes only were noted which did not meet the criteria for ischemia. No clinical angina was noted the test was terminated due to the target heart rate being achieved/fatigue. The peak blood pressure was 168/86 mmHg. Rate-pressure product was 24,600. Myocardial perfusion protocol. 14.9 mCi of technetium 99m sestamibi was injected at rest. The patient exercised according to regular Dima protocol for total duration of 5 minutes and 16 seconds and at peak exercise 44.8 mCi of technetium 99m sestamibi was injected stress images were obtained stress and rest images were reconstructed in comparing the short axis vertical long and horizontal long axis. Gated images were also obtained. Perfusion SPECT analysis: Review of the stress images demonstrate normal uptake of tracer noted in all areas of the myocardium the apex of the ventricle however has a defect. The resting images similarly demonstrate normal uptake of tracer noted in all areas of the myocardium with an apical defect present. 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 No ischemia is noted.. Gated SPECT analysis: The gated ejection fraction is 54%. Conclusion: Normal exercise myocardial perfusion stress test at a moderate workload Preserved ejection fraction. Previous apical infarct
== END | disposition home or self-care (01) ==
PROVIDERS: PCP Family Medicine; Referring Provider Nurse Practitioner Family; Visit Provider Nurse Practitioner Family
DX: R55 Syncope and collapse (principal); I25.10 Atherosclerotic heart disease of native coronary artery without angina pectoris; Z95.5 Presence of coronary angioplasty implant and graft
CPT/HCPCS: 78452; 93017; A9500; A4216